=== PATIENT | female | born 1940 | race Caucasian/White ===

== ENCOUNTER 2016-08-10 22:05 | Emergency (ER) | payer OTHER ==
[2016-08-10 22:23] VITALS: BP 189/86; BMI 36.6
--- NOTE | 2016-08-10 23:13 | DR.GENAD ---
HPI - PCP Primary Care Physician: BRET CASAS - HPI Comment HPI Comment: HISTORY BELOW. - Complaint/Symptoms Chief Complaint Doctors Comments: FELL, PAIN RIGHT HIP AND PELVIC. PAIN LOWER BACK ALSO. PROBLEM BEARING WEIGHT.PAIN GETING WORSE. HAPPEN TODAY. Chief Complaint:: S/P FALL PAIN IN RIGHT HIP - Nurses notes reviewed Nurses Notes Review: Yes - Source History Provided: Patient, Family Member - Mode of Arrival Mode of Arrival: Wheelchair - Timing Onset of Chief Complaint: 08/10/16 Came on: Suddenly - Duration Duration: Constant Duration: Hours - Severity Severity: Moderate PMH - PMH Past Medical History: Yes Past Medical History: Arthritis, Diabetes, Dyslipidemia, Hypertension Past Surgical History: Yes Surgical History: Appendectomy, Cholecystectomy, Hysterectomy - Family History History of Family Medical Conditions: Yes Family Medical History: Diabetes Mellitus, Cancer, [place], Hypertension - Social History Does patient currently use any type of tobacco product: No Have you used tobacco products in the last 12 months: No Type of Tobacco Use: None Does any household member use tobacco: No Alcohol Use: None Do you use any recreational Drugs:: No Lives With: Family Lives Where: Home - infectious screening In the last 2 months have you had wt loss of >10#?: NO Have you had fever, night sweats or hemotysis?: No Have you traveled outside the country in the last 6 months?: No Isolation: Standard ROS - Review of Systems Constitutional: Weakness, Fatigue. negative: Chills, Fever Eyes: No Symptoms Reported. negative: Eye Pain, Discharge ENTM: No Symptoms Reported. negative: Ear Pain, Nose Discharge, Nose Congestion , Throat Pain Respiratoy: Non-Productive Cough. negative: Short of Breath, Wheezing Cardiovascular: Edema. negative: Chest Pain, Palpitations, Syncope Gastrointestinal/Abdominal: No Symptoms Reported. negative: Abdominal Pain, Diarrhea, Nausea, Vomiting Genitourinary: Pain. negative: Dysuria, Hematuria, Bleeding Neurological: Weakness, Problems Walking. negative: Headache, Dizziness Musculoskeletal: Back Pain, Muscle Pain, Back, Pelvis, Hip Integumentary: Change in Color, Bruises Hematologic/Lymphatic: Easy Bleeding, Easy Bruising Endocrine: No Symptoms Reported All Other Systems: Reviewed and Negative PE - Vital Signs Vitals: Temperature 98.2 F Pulse Rate 76 Respiratory Rate 18 Blood Pressure [Left Arm] 160/74 Blood Pressure 189/86 O2 Sat by Pulse Oximetry 95 - General Limitations: No Limitations General Appearance: Alert - Head Head Exam: Normal Inspection - Eyes Eye exam: Normal Appearance - ENT ENT Exam: Normal External Ear Exam TM/Canal Exam: Bilateral Normal Nose Exam: Normal Nose Exam Mouth Exam: Normal Inspection Throat Exam: Normal Inspection - Neck Neck Exam: Trachea Midline. negative: Tenderness, Meningismus, Lymphadenopathy - Chest Chest Inspection: Symmetric Chest Wall Rise - Respiratory Respiratory Exam: negative: Chest Wall Tenderness, Respiratory Distress Respiratory Exam: Bilateral Rhonchi, Lower Rhonchi - Cardiovascular Cardiovascular Exam: Regular Rate, Normal Rhythm, Normal Heart Sounds - Abdominal Exam Abdominal Exam: Normal Bowel Sounds, Soft, Tenderness - Extremities Extremities Exam: Tenderness (RIGHT HIP), Edema - Back Back Exam: Tenderness (LOWER BACK), Vertebral Tenderness (LOWER BACK) - Neurologic Neurological Exam: Alert, Oriented X3 - Psychiatric Psychiatric Exam: Normal Affect, Normal Mood - Skin Skin Exam: Erythema MDM - Additional Information Additional Information Obtained From: Family - Differential Diagnosis Differential Diagnosis: FRACTURE, CONTUSION, SPRAIN AND STRAIN LOWER BACK, RIGHT HIP AND PELVIS. Course - Treatment Treatment: SEE ORDERS. - Education/Counseling Education/Counseling: Patient, Family, Education Educated On: Diagnosis, Needs for Follow Up ROR - XRAY XRAY Interpreted by: Radiologist XRAY Findings: REPORT DISCUSS WITH PATIENT. - Diagnosis Discharge Problem: Pain in pelvis Lumbosacral strain Qualifiers: Encounter type: initial encounter Qualified Code(s): S39.012A - Strain of muscle, fascia and tendon of lower back, initial encounter Sprain of right hip Qualifiers: Encounter type: initial encounter Qualified Code(s): S73.101A - Unspecified sprain of right hip, initial encounter Contusion of right hip Qualifiers: Encounter type: initial encounter Qualified Code(s): S70.01XA - Contusion of right hip, initial encounter Contusion of lower back Qualifiers: Encounter type: initial encounter Qualified Code(s): S30.0XXA - Contusion of lower back and pelvis, initial encounter - Discharge Plan Disposition: HOME, SELF-CARE Condition: Stable - Follow ups/Referrals Follow ups/Referrals: Bret Casas [Primary Care Provider] - 3 days - Instructions Instructions: Lumbosacral Strain, Hip Pain Additional Instructions: RETURN TO ED IF WORSE. CONTINUE WITH MEDS AT HOME FOR PAIN.
--- NOTE | 2016-08-11 00:10 | RAD ---
Right hip two views Indication: Pain after fall. Findings: SI joint DJD seen. Hip joint DJD seen. There is no cortical lucency or malalignment. Impression: No acute hip fracture. Reported By:
--- NOTE | 2016-08-11 03:15 | CT ---
CT lumbar spine without contrast Indication: Pain after fall. Technique: Helical images through the lumbar spine without contrast. Coronal and sagittal reformats provided. Findings: There is mild multilevel disk degenerative change and facet arthropathy, without cortical lucency or malalignment. Facet arthropathy and disc bulges are worse caudally generally. Within limi ts of CT, mild to moderate spinal canal narrowing is noted at L3-L4. L2 through L5 also show mild na rrowing of the spinal canal. Mild bilateral neural foramen narrowing noted at L3-L4, L4-L5, L5-S1. Limited images through the abdomen and pelvis show no acute abnormality. Vascular plaque noted. Impression: 1. No acute fracture. 2. Degenerative changes as above. Reported By:
== END 2016-08-11 03:54 | disposition home or self-care (01) ==
LOC: ER 22:29
DX: S39.012A Strain of muscle, fascia and tendon of lower back, initial encounter (principal); S73.101A Unspecified sprain of right hip, initial encounter; S70.01XA Contusion of right hip, initial encounter; S30.0XXA Contusion of lower back and pelvis, initial encounter; R10.2 Pelvic and perineal pain; W19.XXXA Unspecified fall, initial encounter; Y92.9 Unspecified place or not applicable
CPT/HCPCS: 72131; 73501; 99282; 99283

== ENCOUNTER → 2017-02-21 | Outpatient (CLI) | payer OTHER ==
--- NOTE | 2017-02-26 14:30 | MG ---
HISTORY: SCREENING Comparison: 02/21/2016 FINDINGS: Bilateral CC and MLO projections of the right and left breast were obtained. Scattered fibroglandula r tissue is seen to be present. No significant architectural distortion, mass or clustered microcalc ifications can be observed to suggest malignancy. No skin thickening or nipple retraction is appreci ated. No pathological lymphadenopathy can be identified. Benign-appearing calcifications scattered throughout the right and left breasts are observed. IMPRESSION: NO RADIOGRAPHIC EVIDENCE OF MALIGNANCY. ACR CATEGORY 2 - benign findings. FOLLOW-UP EXAM 1 YEAR. Diagnostic CAD was utilized and reviewed. * 0 (ZERO) - ASSESSMENT INCOMPLETE; ADDITIONAL IMAGING IS NEEDED. * 1/ (ONE) - NEGATIVE. * 2/II (TWO) - BENIGN FINDINGS. * 3/III (THREE) - PROBABLY BENIGN FINDING; SHORT INTERVAL FOLLOW-UP SUGGESTED. * 4/IV (FOUR) - SUSPICIOUS ABNORMALITY; BIOPSY SHOULD BE CONSIDERED. * 5/V - HIGHLY SUSPICIOUS OF MALIGNANCY; BIOPSY SHOULD BE PERFORMED. A NEGATIVE X-RAY REPORT SHOULD NOT DELAY BIOPSY IF A DOMINANT OR CLINICALLY SUSPICIOUS MASS IS PRESENT; 4 TO 8 PERCENT OF CANCERS ARE NOT IDENTIFIED BY X-RAY. A NEGA TIVE REPORT MAY REINFORCE THE CLINICAL IMPRESSION. ADENOSIS AND DENSE BREASTS MAY OBSCURE AN UNDERLY ING NEOPLASM. Reported By:
== END ==
LOC: RAD 10:55
PROVIDERS: ATTEND Obstetrics & Gynecology
DX: Z12.31 Encounter for screening mammogram for malignant neoplasm of breast (principal)
CPT/HCPCS: 77067

== ENCOUNTER 2020-12-15 02:52 | Observation (INO) ==
[2020-12-15 03:05] VITALS: BMI 34.7
--- NOTE | 2020-12-15 03:22 | DR.CP ---
HPI Time Seen Time Seen by Provider: 12/15/20 04:21 PCP Primary Care Physician: Jerson HPI Comment HPI Comment: PATIENT IS 80YR OLD FEMALE IN R WITH CHEST PAIN SINCE 01:30 AM. SIMILAR PAIN SUNDAY AND WAS EVALUATED IN ER ON SUNDAY. Complaint Chief Complaint Doctor Comments: CHEST PAIN SINCE 01:30AM. Chief Complaint:: chest pain that started about 1:30 tonight. Pt was here Sunday with same complaint COVID-19 Coronavirus risk:travel/contact w/high risk person: No Has patient experienced Coronavirus symptoms: No Reviewed Nurses Notes Review: Yes Source History Provided: Patient and Family Member Mode of Arrival Mode of Arrival: Ambulatory Timing Onset of Chief Complaint: 12/15/20 Came on: Suddenly Pain: Present Now Duration Duration: Constant PMH PMH Past Medical History: Yes Past Medical History: Coronary Artery Disease, Dementia, Diabetes and Hypertension Past Surgical History: Yes Surgical History: Appendectomy, Cholecystectomy and Hysterectomy Past Surgical History Comment: Stents x 3 Family History History of Family Medical Conditions: Yes Family Medical History: Diabetes Mellitus, Cancer, [place], Coronary Artery Disease and Hypertension Social History Alcohol Use: None Do you use any recreational Drugs:: No Infectious screening Have you traveled outside the country in the last 6 months?: No Isolation: Standard PE Vitals Vitals: Temperature 97.6 F Pulse Rate [Apical] 80 Pulse Rate 83 Respiratory Rate 22 Blood Pressure [Left Arm] 159/73 Blood Pressure 149/66 O2 Sat by Pulse Oximetry 98 ROR Labs Reviewed Result Diagrams: 12/15/20 03:57 12/15/20 03:57 Laboratory: WBC 8.9 X10^3/uL (3.6-10.0) 12/15/20 03:57 RBC 3.36 X10^6/uL (3.5-5.4) L 12/15/20 03:57 Hgb 10.3 g/dL (12.0-16.0) L 12/15/20 03:57 Hct 29.7 % (36.0-47.0) L 12/15/20 03:57 MCV 88.5 fL (80.0-100.0) 12/15/20 03:57 MCH 30.7 pg (27.0-34.0) 12/15/20 03:57 MCHC 34.7 g/dL (33.0-35.0) 12/15/20 03:57 RDW 14.2 % (11.6-16.5) 12/15/20 03:57 Plt Count 186 X10^3/uL (150.0-450.0) 12/15/20 03:57 MPV 8.7 fL (7.4-11.0) 12/15/20 03:57 Neut % (Auto) 84.7 % (42.0-75.0) H 12/15/20 03:57 Lymph % (Auto) 7.9 % (21.0-51.0) L 12/15/20 03:57 Payne % (Auto) 6.3 % (0.0-13.0) 12/15/20 03:57 Eos % (Auto) 0.6 % (0.9-2.9) L 12/15/20 03:57 Baso % (Auto) 0.5 % (0.2-1.0) 12/15/20 03:57 Neut # (Auto) 7.5 x10^3/uL (2.2-4.8) H 12/15/20 03:57 Lymph # (Auto) 0.7 X10^3/uL (1.3-2.9) L 12/15/20 03:57 Payne # (Auto) 0.6 x10^3/uL (0.3-0.8) 12/15/20 03:57 Eos # (Auto) 0.1 x10^3/uL (0.0-0.2) 12/15/20 03:57 Baso # (Auto) 0.0 X10^3/uL (0.0-0.1) 12/15/20 03:57 Absolute Nucleated RBC 0.0 /100WBC 12/15/20 03:57 Sodium 132 mmol/L (136-145) L 12/15/20 03:57 Corrected Sodium 133 mmol/L (136-145) L 12/15/20 03:57 Potassium 4.1 mmol/L (3.5-5.1) 12/15/20 03:57 Chloride 96 mmol/L (98-107) L 12/15/20 03:57 Carbon Dioxide 25.1 mmol/L (21-32) 12/15/20 03:57 BUN 20 mg/dL (7-18) H 12/15/20 03:57 Creatinine 1.36 mg/dL (0.55-1.02) H 12/15/20 03:57 Est GFR (MDRD) Af Amer 48 (>60) L 12/15/20 03:57 Est GFR (MDRD) Non-Af 40 (>60) L 12/15/20 03:57 Glucose 133 mg/dL (65-99) H 12/15/20 03:57 Calcium 8.3 mg/dL (8.5-10.1) L 12/15/20 03:57 Corrected Calcium TNP 12/15/20 03:57 Total Bilirubin 0.30 mg/dL (0.2-1.0) 12/15/20 03:57 AST 18 Units/L (15-37) 12/15/20 03:57 ALT 25 Units/L (12-78) 12/15/20 03:57 Alkaline Phosphatase 106 Units/L (46-116) 12/15/20 03:57 Creatine Kinase 95 Units/L (26-192) 12/15/20 03:57 CK-MB (CK-2) 1.5 ng/mL (0-4.0) 12/15/20 03:57 CK/CKMB % Calc 1.6 % (<4) 12/15/20 03:57 Troponin I < 0.02 ng/mL (0-1.5) 12/15/20 03:57 Total Protein 6.5 g/dL (6.4-8.2) 12/15/20 03:57 Albumin 3.5 g/dL (3.4-5.0) 12/15/20 03:57 Globulin 3.0 g/dL (2.5-4.5) 12/15/20 03:57 Albumin/Globulin Ratio 1.2 Ratio (1.1-2.1) 12/15/20 03:57 Specimen Type Clean catch urine 12/15/20 05:01 Urine Color Straw (YELLOW) 12/15/20 05:01 Urine Appearance Clear (CLEAR) 12/15/20 05:01 Urine pH 6.5 (5.0 - 8.0) 12/15/20 05:01 Ur Specific [place] 1.010 (1.000-1.030) 12/15/20 05:01 Urine Protein Negative (NEGATIVE) 12/15/20 05:01 Urine Glucose (UA) Negative (NEGATIVE) 12/15/20 05:01 Urine Ketones Negative (NEGATIVE) 12/15/20 05:01 Urine Occult Blood Negative (NEGATIVE) 12/15/20 05:01 Urine Nitrite Negative (NEGATIVE) 12/15/20 05:01 Urine Bilirubin Negative (NEGATIVE) 12/15/20 05:01 Urine Urobilinogen Normal (NORMAL) 12/15/20 05:01 Ur Leukocyte Esterase 1+ (NEGATIVE) 12/15/20 05:01 Urine RBC None seen /HPF (0-3) 12/15/20 05:01 Urine WBC None seen /HPF (0-5) 12/15/20 05:01 Ur Squamous Epith Cells Negative /HPF (NEGATIVE) 12/15/20 05:01 Urine Bacteria Negative /HPF (NEGATIVE) 12/15/20 05:01 Ur Culture Indicated? No/not indicated 12/15/20 05:01 Opioid Opioid Risk Tool Age (Good box if 16-45): No History of Preadolescent Sexual Abuse: No Total: 0 Total Score Risk Category: Low Risk Copyright: Bakari DUNLAP predicting aberrant behaviors
[2020-12-15] MEDS ORDERED: ASPIRIN 81 MG CHEWTAB PO ONE (03:43)
[2020-12-15] MEDS ORDERED: ASPIRIN 81 MG CHEWTAB ONE (03:45)
[2020-12-15 04:17] LABS: BASOPHILS % (AUTO) 0.5 % (0.2-1.0); EOSINOPHILS # (AUTO) 0.1 x10^3/uL (0.0-0.2); EOSINOPHILS % (AUTO) 0.6 % (0.9-2.9); HEMATOCRIT 29.7 % (36.0-47.0); HEMOGLOBIN 10.3 g/dL (12.0-16.0); LYMPHOCYTES # (AUTO) 0.7 X10^3/uL (1.3-2.9); LYMPHOCYTES % (AUTO) 7.9 % (21.0-51.0); MEAN CORPUSCULAR HEMOGLOBIN 30.7 pg (27.0-34.0); MEAN CORPUSCULAR HGB CONC 34.7 g/dL (33.0-35.0); MEAN CORPUSCULAR VOLUME 88.5 fL (80.0-100.0); MEAN PLATELET VOLUME 8.7 fL (7.4-11.0); MONOCYTES # (AUTO) 0.6 x10^3/uL (0.3-0.8); MONOCYTES % (AUTO) 6.3 % (0.0-13.0); NEUTROPHILS # (AUTO) 7.5 x10^3/uL (2.2-4.8); NEUTROPHILS % (AUTO) 84.7 % (42.0-75.0); PLATELET COUNT 186 X10^3/uL (150.0-450.0); RED BLOOD COUNT 3.36 X10^6/uL (3.5-5.4); RED CELL DISTRIBUTION WIDTH 14.2 % (11.6-16.5); WHITE BLOOD COUNT 8.9 X10^3/uL (3.6-10.0)
[2020-12-15 04:30] LABS: ALANINE AMINOTRANSFERASE 25 Units/L (12-78); ALBUMIN 3.5 g/dL (3.4-5.0); ALKALINE PHOSPHATASE 106 Units/L (46-116); ASPARTATE AMINO TRANSFERASE 18 Units/L (15-37); BLOOD UREA NITROGEN 20 mg/dL (7-18); CALCIUM 8.3 mg/dL (8.5-10.1); CARBON DIOXIDE 25.1 mmol/L (21-32); CHLORIDE 96 mmol/L (98-107); CKMB % 1.6 % (<4); COR NA(FOR HYPERGLY) 133 mmol/L (136-145); CREATINE KINASE 95 Units/L (26-192); CREATINE KINASE MB 1.5 ng/mL (0-4.0); CREATININE 1.36 mg/dL (0.55-1.02); SODIUM 132 mmol/L (136-145); TOTAL PROTEIN 6.5 g/dL (6.4-8.2); TROPONIN I < 0.02 ng/mL (0-1.5); eGFR NON BLACK RACES 40 (>60)
[2020-12-15 05:36] LABS: BILIRUBIN,URINE NEGATIVE (NEGATIVE); BLOOD/HEMOGLOBIN,URINE NEGATIVE (NEGATIVE); GLUCOSE, URINE NEGATIVE (NEGATIVE); KETONES,URINE NEGATIVE (NEGATIVE); LEUKOCYTE ESTERASE ,URINE 1+ (NEGATIVE); NITRITES,URINE NEGATIVE (NEGATIVE); PH,URINE 6.5 (5.0 - 8.0); PROTEIN,URINE NEGATIVE (NEGATIVE); UROBILINOGEN,URINE NORMAL (NORMAL)
--- NOTE | 2020-12-15 05:52 | RAD ---
PROCEDURE: Chest X-ray 1 View .HISTORY: Chest pain.TECHNIQUE: AP view .COMPARISON: 12/10/2020.TECHNICAL QUALITY: Satisfactory .FINDINGS:Normal size heart .Mediastinum and hilar regions show no masses or lymphadenopathy .Normal central vascularity .No pulmonary consolidation, masses, pleural fluid, or pneumothorax .No acute bony abnormality .IMPRESSION:No active cardiopulmonary disease .Electronically signed by: Kermit Stanley (Dec 15, 2020 05:49:02)
[2020-12-15 06:15] LABS: APPEARANCE,URINE CLEAR (CLEAR); BACTERIA,URINE NEGATIVE /HPF (NEGATIVE); COLOR,URINE STRAW (YELLOW); RBC,URINE NONE SEEN /HPF (0-3); SQUAMOUS EPITHELIAL CELL,UR NEGATIVE /HPF (NEGATIVE)
[2020-12-15] MEDS ORDERED: NS 1000 ML 1,000 ML ONE (10:59)
[2020-12-15] MEDS: NS 1000 ML 1,000 ML IV SCH ×2 (11:20→21:33)
[2020-12-15 11:59] LABS: CKMB % 1.9 % (<4); CREATINE KINASE 83 Units/L (26-192); CREATINE KINASE MB 1.6 ng/mL (0-4.0); TROPONIN I < 0.02 ng/mL (0-1.5)
--- NOTE | 2020-12-15 12:11 | DR.H&P ---
H&P - History & Physical for Day of: H&P Date: 12/15/20 - Chief Complaint Chief Complaint: CHEST PAIN - History of Present Illness History of Present Illness: IS A 80 YEAR OLD PATIENT OF OURS WHO PRESENTED TO THE ER FOR COMPLAINTS OF CHEST PAIN. PAIN HAS APPARENTLY BEEN INTERMITTENT SINCE SUNDAY, 12/10. SHE DID PRESENT TO THE ER ON 12/10 AND HAD NORMAL CARDIAC ENZYMES AND EKGS AT THAT TIME. SHE WAS DISCHARGED HOME FROM THE ER. PAIN BECAME WORSE AROUND 1:30 AM THIS MORNING. PAIN IS MID STERNAL. PATIENT RATES PAIN A 5/10 AT THE PRESENT TIME. HER PMH INCLUES: CAD, DEMENTIA, DM II, HTN, GERD, PAST UTERINE CANCER, APPENDECTOMY, CHOLECYSTECTOMY, HYSTERECTOMY, AND CARDIAC STENTS X 3. ON ARRIVAL TO THE ER TODAY, VITALS WERE 97.6-83-18-98%-149/66. LABS WERE OBTAINED. ABNORMAL LAB VALUES INCLUDE THE FOLLOWING: RBC 3.36, HGB 10.3, HCT 29.7, SODIUM 132, CHLORIDE 96, BUN 20, CREATININE 1.36, GLUCOSE 133, CALCIUM 8.3. CARDIAC ENZYMES WERE WITHIN NORMAL LIMITS. URINALYSIS WAS OBTAINED AND IS UNREMARKABLE. COVID, RSV, AND INFLUENZA NEGATIVE. AN EKG WAS OBTAINED AND REVEALED: SINUS RHYTHM WITH HR 83. CHEST XRAY REVEALED: NO ACTIVE CARDIOPULMONARY DISEASE. SHE HAD AN ECHO IN AUGUST WHICH REVEALED AN EJECTION FRACTION OF 71%, TRACE REGURGITATION, RVSP 20mmHg. IN THE ER, SHE WAS GIVEN ASPIRIN 324MG. SHE WAS ADMITTED TO THE HOSPITAL FOR FURTHER EVALUATION AND TREATMENT OF CHEST PAIN, RULE OUT ACUTE DE. WE PLAN TO OBTAIN SERIAL CARDIAC ENZYMES AND EKGS. WE WILL CONSULT WITH , CYCLE COUNTER. OTHERWISE, WE PLAN TO FOLLOW UP WITH AM LABS AND CONTINUE TO MONITOR. TIME SPENT ON CLINICAL ASSESSMENT, REVIEWING LABS AND IMAGING, DECISION MAKING, AND DOCUMENTATION GREATER THAN 75 MINUTES. - Past Medical History Past Medical History: Coronary Artery Disease, Dementia, Diabetes, GERD, Hyper tension - Past Surgical History Surgical History: Angioplasty/Stents, Appendectomy, Cholecystectomy, Hysterectomy - Family History Family Medical History: Diabetes Mellitus, Cancer, [place], Coronary Artery Disease, Hypertension - Social History Does any household member use tobacco: No Alcohol Use: None Drug Use: None - Medications Home Medications: Penicillins Allergy (Verified 12/15/20 03:06) Sulfa (Sulfonamide Antibiotics) [SULFA] Allergy (Verified 12/15/20 03:06) CONTINUE taking the following medications amlodipine 5 mg PO DAILY 12/15/20 [History] atorvastatin 80 mg PO DAILY 12/15/20 [History] furosemide 40 mg PO BID 12/15/20 [History] gabapentin 300 mg PO TID 12/15/20 [History] hydralazine 50 mg PO BID 12/15/20 [History] insulin glargine U-300 conc [Toujeo SoloStar U-300 Insulin] 44 unit SUBCUT DAILY 12/15/20 [History] insulin regular human [Novolin R Regular U-100 Insuln] 1 sliding scale dose SUBCUT ACHS 12/15/20 [History] iron-folic acid-mv, min cmb#15 [Centratex] 1 cap PO DAILY 12/15/20 [History] levothyroxine 50 mcg PO DAILY 12/15/20 [History] metformin 500 mg PO BID 12/15/20 [History] pantoprazole 40 mg PO DAILY 12/15/20 [History] potassium chloride 10 meq PO DAILY 12/15/20 [History] ropinirole 3 mg PO HS 12/15/20 [History] semaglutide [Rybelsus] 7 mg PO DAILY 12/15/20 [History] spironolactone 25 mg PO DAILY 12/15/20 [History] ticagrelor [Brilinta] 90 mg PO BID 12/15/20 [History] - Review of Systems Constitutional: Weakness Eyes: No Symptoms Reported ENT: No Symptoms Reported Respiratory: No Symptoms Reported Cardiovascular: Chest Pain, See HPI Gastrointestinal: No Symptoms Reported Genitourinary: No Symptoms Reported Musculoskeletal: No Symptoms Reported Skin: No Symptoms Reported Neurological: Weakness - Physical Exam Vital Signs: Temperature 98.2 F Pulse Rate [Apical] 95 Pulse Rate 83 Respiratory Rate 20 Blood Pressure [Left Arm] 160/74 Blood Pressure 149/66 O2 Sat by Pulse Oximetry 98 Oriented: Person, Place Eyes: Normal Ear: Normal Nose: Normal Throat: Normal Respiratory: Diminished Throughout Cardiovascular: Normal : Normal Auscultation: Bowel Sounds: Normal Palpation: Normal Tenderness: Normal Skin: Normal Musculoskeletal: Normal Psychiatric: Normal Mood Description: Calm Affect: Normal Speech Pattern: Clear - Assessment/Plan (1) Chest pain, rule out acute myocardial infarction Status: Acute Plan: ADMIT, SERIAL CARDIAC ENZYMES AND EKG, CARDIOLOGY CONSULT - Allergies Allergies/Adverse Reactions: Allergies Allergy/AdvReac Type Severity Reaction Status Date / Time Penicillins Allergy Verified 12/15/20 03:06 Sulfa (Sulfonamide Allergy Verified 12/15/20 03:06 Antibiotics) [SULFA]
[2020-12-15 18:37] LABS: CKMB % 1.7 % (<4); CREATINE KINASE MB 1.3 ng/mL (0-4.0); TROPONIN I 0.02 ng/mL (0-1.5)
[2020-12-15] MEDS ORDERED: REQUIP PO SCH (22:00)
[2020-12-15] MEDS: PROTONIX INJ 40 MG VIAL IVP SCH (22:05)
[2020-12-15] MEDS: NEURONTIN CAP 300 MG PO SCH (22:05)
[2020-12-16] MEDS: PEPCID 20 MG IV PREMIX* 20 MG/50 ML BAG IV SCH ×2 (01:24→09:39)
[2020-12-16] MEDS: NEURONTIN CAP 300 MG PO SCH (05:37)
[2020-12-16 06:12] LABS: BASOPHILS # (AUTO) 0.1 X10^3/uL (0.0-0.1); BASOPHILS % (AUTO) 0.9 % (0.2-1.0); EOSINOPHILS # (AUTO) 0.2 x10^3/uL (0.0-0.2); EOSINOPHILS % (AUTO) 2.6 % (0.9-2.9); HEMATOCRIT 29.5 % (36.0-47.0); HEMOGLOBIN 10.1 g/dL (12.0-16.0); LYMPHOCYTES # (AUTO) 1.2 X10^3/uL (1.3-2.9); LYMPHOCYTES % (AUTO) 16.9 % (21.0-51.0); MEAN CORPUSCULAR HEMOGLOBIN 30.8 pg (27.0-34.0); MEAN CORPUSCULAR HGB CONC 34.1 g/dL (33.0-35.0); MEAN CORPUSCULAR VOLUME 90.2 fL (80.0-100.0); MEAN PLATELET VOLUME 8.6 fL (7.4-11.0); MONOCYTES # (AUTO) 0.5 x10^3/uL (0.3-0.8); MONOCYTES % (AUTO) 7.6 % (0.0-13.0); PLATELET COUNT 187 X10^3/uL (150.0-450.0); RED BLOOD COUNT 3.27 X10^6/uL (3.5-5.4); RED CELL DISTRIBUTION WIDTH 14.4 % (11.6-16.5); WHITE BLOOD COUNT 6.9 X10^3/uL (3.6-10.0)
[2020-12-16 06:28] LABS: ALANINE AMINOTRANSFERASE 20 Units/L (12-78); ALKALINE PHOSPHATASE 94 Units/L (46-116); ASPARTATE AMINO TRANSFERASE 14 Units/L (15-37); BLOOD UREA NITROGEN 14 mg/dL (7-18); CALCIUM 8.4 mg/dL (8.5-10.1); CHLORIDE 103 mmol/L (98-107); COR CA(FOR HYPOALB) 9.2 mg/dL (8.5-10.1); COR NA(FOR HYPERGLY) 138 mmol/L (136-145); CREATININE 1.08 mg/dL (0.55-1.02); MAGNESIUM 1.8 mg/dL (1.7-2.9); SODIUM 136 mmol/L (136-145); TOTAL PROTEIN 5.9 g/dL (6.4-8.2); eGFR NON BLACK RACES 52 (>60)
[2020-12-16] MEDS ORDERED: HumuLIN R SC SCH (06:30)
[2020-12-16] MEDS ORDERED: GLUCOPHAGE ONE (08:13)
[2020-12-16] MEDS ORDERED: SYNTHROID 50 mcg TAB PO SCH (09:00)
[2020-12-16] MEDS ORDERED: [UNRECOGNIZED DRUG - OTHER] PO SCH (09:00)
[2020-12-16] MEDS ORDERED: TOUJEO SOLOSTAR PEN SC SCH (09:00)
[2020-12-16] MEDS ORDERED: APRESOLINE TAB 25 MG PO SCH (09:00)
[2020-12-16] MEDS ORDERED: BRILINTA PO SCH (09:00)
[2020-12-16] MEDS ORDERED: LIPITOR TAB 80 MG PO SCH (09:00)
[2020-12-16] MEDS ORDERED: NORVASC TAB 5 MG PO SCH (09:00)
[2020-12-16] MEDS ORDERED: MICRO K EXTEN CAP 10 MEQ PO SCH (09:00)
[2020-12-16] MEDS ORDERED: IRON PO SCH (09:00)
[2020-12-16] MEDS ORDERED: LASIX PO SCH (09:00)
[2020-12-16] MEDS ORDERED: TAB-A-VITE PO SCH (09:00)
[2020-12-16] MEDS ORDERED: ALDACTONE TAB 25 MG PO SCH (09:00)
[2020-12-16] MEDS ORDERED: GLUCOPHAGE PO SCH (09:00)
[2020-12-16] MEDS ORDERED: IRON FOLIC ACID MV MIN CMB PO SCH (09:00)
[2020-12-16] MEDS: PROTONIX INJ 40 MG VIAL IVP SCH (09:43)
[2020-12-16] MEDS: NS 1000 ML 1,000 ML IV SCH (09:48)
[2020-12-16 10:07] VITALS: BP 167/72
[2020-12-16] MEDS ORDERED: SNACK - Diabetic Appropriate PO SCH ×2 (20:00)
== END 2020-12-16 11:00 | disposition home or self-care (01) ==
LOC: ER 02:57 → U 02:57 → MED/SURG 14:54
PROVIDERS: ADMIT Family Medicine; ATTEND Internal Medicine
DX: E11.65 Type 2 diabetes mellitus with hyperglycemia; I25.10 Atherosclerotic heart disease of native coronary artery without angina pectoris; R07.89 Other chest pain; I10 Essential (primary) hypertension; Z20.822 Contact with and (suspected) exposure to COVID-19

== ENCOUNTER 2021-03-03 09:26 | Observation (INO) ==
--- NOTE | 2021-03-03 09:30 | DR.NAUSEAF ---
HPI Time Seen Time Seen by Provider: 03/03/21 09:29 HPI Comment HPI Comment: PATIENT IS 80YR OLD Complaints Chief Complaint Doctors Comments: ABDOMINAL PAIN, NAUSEA,VOMITING AND DIARRHEA SINCE 04:00AM. COVID-19 Coronavirus risk:travel/contact w/high risk person: No Has patient experienced Coronavirus symptoms: No Reviewed Nurses Notes Reviewed: Yes Source History Provided: Patient Mode of Arrival Mode of Arrival: EMS Context Onset: Spontaneous Recent: None Quality Quality: Food Particles Associated Signs and Symptoms Abdominal Pain Quality: Cramping Abdominal Pain Location: Diffuse Symptoms: Abdominal Pain PMH PMH Past Medical History: Coronary Artery Disease, Dementia, Diabetes, Dyslipidemia, GERD, Hypertension and Sleep Apnea Past Surgical History: Yes Surgical History: Angioplasty/Stents, Appendectomy, Cholecystectomy and Hysterectomy Family History Family Medical History: Diabetes Mellitus, Cancer, [place], Coronary Artery Disease and Hypertension Social History Do you use any recreational Drugs:: No ROS Review of Systems Constitutional: See HPI, Weakness and Fatigue; negative Fever Eyes: No Symptoms Reported and See HPI ENTM: No Symptoms Reported and See HPI; negative Nose Discharge and Nose Conge stion Respiratoy: No Symptoms Reported and See HPI; negative Moist Cough, Short of Breath and Wheezing Cardiovascular: No Symptoms Reported and See HPI; negative Chest Pain Gastrointestinal/Abdominal: See HPI, Abdominal Pain, Diarrhea and Vomiting Genitourinary: No Symptoms Reported and See HPI; negative Dysuria Neurological: See HPI and Weakness; negative Headache and Dizziness Musculoskeletal: No Symptoms Reported and See HPI; negative Back Pain and Muscle Pain Integumentary: No Symptoms Reported and See HPI; negative Change in Color, Rash and Juandice Hematologic/Lymphatic: No Symptoms Reported and See HPI; negative Easy Bruising Endocrine: No Symptoms Reported and See HPI; negative Increased Thirst and Increased Urine Psychiatric: No Symptoms Reported and See HPI All Other Systems: Reviewed and Negative PE Vital Signs Vitals: Temperature 97.8 F Pulse Rate 86 Respiratory Rate 20 Blood Pressure [Left Arm] 167/72 Blood Pressure 191/81 O2 Sat by Pulse Oximetry 97 General Limitations: No Limitations General Appearance: Alert and In No Apparent Distress Head Head Exam: Normal Inspection Eyes Eye exam: Normal Appearance; negative Scleral Icterus and Conjunctival Injection ENT ENT Exam: Normal Exam, Normal Oropharynx, Normal External Ear Exam and TM's Normal Bilaterally Neck Neck Exam: Normal Inspection and Trachea Midline; negative Tenderness Chest Chest Inspection: Normal Inspection and Symmetric Chest Wall Rise; negative Tenderness Respiratory Respiratory Exam: Normal Lung Sounds Bilat; negative Accessory Muscle Use, Chest Wall Tenderness and Respiratory Distress Respiratory Exam: Bilateral: Clear to Auscultation Cardiovascular Cardiovascular Exam: Regular Rate, Normal Rhythm and Normal Heart Sounds; negative Systolic Murmur and Diastolic Murmur Abdominal Exam Abdominal Exam: Normal Bowel Sounds, Soft and Tenderness Abdominal Tenderness: Diffuse and Moderate Rectal Rectal Exam: Deferred External Exam: Female: Deferred : Speculum Exam (Female): Deferred : Bimanual Exam (female): Deferred Extremities Extremities Exam: Normal Inspection and Normal Capillary Refill Back Back Exam: Normal Inspection; negative (R) CVA Tenderness and (L) CVA Tenderness Neurologic Neurological Exam: Alert and Oriented X3; negative Motor Sensory Deficit Psychiatric Psychiatric Exam: Normal Affect and Normal Mood Skin Skin Exam: Warm, Dry, Intact and Normal Color MDM Differential Diagnosis Differential Diagnosis: Considerations may Include:: Bowel Obstruction, Gastritis, Gastroenteritis, Inflammatory BD, Pancreatitis, PUD, Urinary Tract Infection and Urolithiasis COURSE Treatment Treatment: SEE ORDERS. ROR Labs Reviewed Result Diagrams: 03/03/21 10:45 03/03/21 10:45 Laboratory: WBC 7.1 X10^3/uL (3.6-10.0) 03/03/21 10:45 RBC 3.84 X10^6/uL (3.5-5.4) 03/03/21 10:45 Hgb 11.6 g/dL (12.0-16.0) L 03/03/21 10:45 Hct 33.8 % (36.0-47.0) L 03/03/21 10:45 MCV 88.1 fL (80.0-100.0) 03/03/21 10:45 MCH 30.1 pg (27.0-34.0) 03/03/21 10:45 MCHC 34.2 g/dL (33.0-35.0) 03/03/21 10:45 RDW 14.3 % (11.6-16.5) 03/03/21 10:45 Plt Count 220 X10^3/uL (150.0-450.0) 03/03/21 10:45 Plt Count Comment Adequate (ADEQUATE) 03/03/21 10:45 MPV 7.9 fL (7.4-11.0) 03/03/21 10:45 Neut % (Auto) 91.3 % (42.0-75.0) H 03/03/21 10:45 Lymph % (Auto) 5.4 % (21.0-51.0) L 03/03/21 10:45 [place] % (Auto) 2.5 % (0.0-13.0) 03/03/21 10:45 Eos % (Auto) 0.2 % (0.9-2.9) L 03/03/21 10:45 Baso % (Auto) 0.6 % (0.2-1.0) 03/03/21 10:45 Neut # (Auto) 6.5 x10^3/uL (2.2-4.8) H 03/03/21 10:45 Lymph # (Auto) 0.4 X10^3/uL (1.3-2.9) L 03/03/21 10:45 [place] # (Auto) 0.2 x10^3/uL (0.3-0.8) L 03/03/21 10:45 Eos # (Auto) 0.0 x10^3/uL (0.0-0.2) 03/03/21 10:45 Baso # (Auto) 0.0 X10^3/uL (0.0-0.1) 03/03/21 10:45 Absolute Nucleated RBC 0.0 /100WBC 03/03/21 10:45 Total Counted 100 03/03/21 10:45 Neutrophils % (Manual) 93 % (39-76) H 03/03/21 10:45 Band Neutrophils % 1 % (0-10) 03/03/21 10:45 Lymphocytes % (Manual) 5 % (13-43) L 03/03/21 10:45 Eosinophils % (Manual) 1 % (0-6) 03/03/21 10:45 Plt Morphology Comment Normal (NORMAL) 03/03/21 10:45 RBC Morphology Normal (NORMAL) 03/03/21 10:45 Sodium 134 mmol/L (136-145) L 03/03/21 10:45 Corrected Sodium 138 mmol/L (136-145) 03/03/21 10:45 Potassium 4.1 mmol/L (3.5-5.1) 03/03/21 10:45 Chloride 99 mmol/L (98-107) 03/03/21 10:45 Carbon Dioxide 28.2 mmol/L (21-32) 03/03/21 10:45 BUN 11 mg/dL (7-18) 03/03/21 10:45 Creatinine 0.88 mg/dL (0.55-1.02) 03/03/21 10:45 Est GFR (MDRD) Af Amer > 60 (>60) 03/03/21 10:45 Est GFR (MDRD) Non-Af > 60 (>60) 03/03/21 10:45 Glucose 269 mg/dL (65-99) H 03/03/21 10:45 Calcium 9.0 mg/dL (8.5-10.1) 03/03/21 10:45 Corrected Calcium TNP 03/03/21 10:45 Total Bilirubin 0.40 mg/dL (0.2-1.0) 03/03/21 10:45 AST 18 Units/L (15-37) 03/03/21 10:45 ALT 28 Units/L (12-78) 03/03/21 10:45 Alkaline Phosphatase 127 Units/L (46-116) H 03/03/21 10:45 Creatine Kinase 49 Units/L (26-192) 03/03/21 10:45 CK-MB (CK-2) 1.1 ng/mL (0-4.0) 03/03/21 10:45 CK/CKMB % Calc 2.2 % (<4) 03/03/21 10:45 Troponin I < 0.02 ng/mL (0-1.5) 03/03/21 10:45 Total Protein 6.9 g/dL (6.4-8.2) 03/03/21 10:45 Albumin 3.5 g/dL (3.4-5.0) 03/03/21 10:45 Globulin 3.4 g/dL (2.5-4.5) 03/03/21 10:45 Albumin/Globulin Ratio 1.0 Ratio (1.1-2.1) L 03/03/21 10:45 Amylase 20 Units/L (25-115) L 03/03/21 10:45 Lipase 68 Units/L (73-393) L 03/03/21 10:45 Specimen Type Clean catch urine 03/03/21 12:10 Urine Color Yellow (YELLOW) 03/03/21 12:10 Urine Appearance Clear (CLEAR) 03/03/21 12:10 Urine pH 8.0 (5.0 - 8.0) 03/03/21 12:10 Ur Specific Moody 1.010 (1.000-1.030) 03/03/21 12:10 Urine Protein 2+ (NEGATIVE) 03/03/21 12:10 Urine Glucose (UA) 4+ (NEGATIVE) 03/03/21 12:10 Urine Ketones 2+ (NEGATIVE) 03/03/21 12:10 Urine Occult Blood Negative (NEGATIVE) 03/03/21 12:10 Urine Nitrite Negative (NEGATIVE) 03/03/21 12:10 Urine Bilirubin Negative (NEGATIVE) 03/03/21 12:10 Urine Urobilinogen Normal (NORMAL) 03/03/21 12:10 Ur Leukocyte Esterase Negative (NEGATIVE) 03/03/21 12:10 Urine RBC 0-2 /HPF (0-3) 03/03/21 12:10 Urine WBC 0-2 /HPF (0-5) 03/03/21 12:10 Ur Squamous Epith Cells Rare /HPF (NEGATIVE) 03/03/21 12:10 Ur Transition Epith Cell Rare /HPF (NEGATIVE) 03/03/21 12:10 Urine Bacteria Trace /HPF (NEGATIVE) 03/03/21 12:10 Urine Mucus Rare /HPF (NEGATIVE) 03/03/21 12:10 Ur Culture Indicated? No/not indicated 03/03/21 12:10 Acetone, Semi-Quant Negative (NEGATIVE) 03/03/21 10:45 Influenza Type A Ag Negative-presumptive (NEGATIVE) 03/03/21 10:50 Influenza Type B Ag Negative-presumptive (NEGATIVE) 03/03/21 10:50 SARS CoV-2 RNA Rapid SKYE Negative (NEGATIVE) 03/03/21 10:50 Opioid Opioid Risk Tool Age (Good box if 16-45): No History of Preadolescent Sexual Abuse: No Total: 0 Total Score Risk Category: Low Risk Copyright: Bakari DUNLAP predicting aberrant behaviors Diagnosis Discharge Problem: Abdominal pain, Hypertension, Nausea and vomiting, Diarrhea, Generalized weakness, Meningioma, Bladder outlet obstruction Instructions Forms: Precautions for COVID19 [facility] Social Distancing
[2021-03-03] MEDS ORDERED: ZOFRAN INJ 4 MG VIAL IVP ONE (09:58)
[2021-03-03] MEDS ORDERED: NS 1,000 ML IV 1,000 ML IV ONE (09:58)
[2021-03-03] MEDS ORDERED: ZOFRAN INJ 4 MG VIAL ONE (10:01)
[2021-03-03] MEDS ORDERED: NS 1,000 ML IV 1,000 ML ONE (10:01)
[2021-03-03 10:55] LABS: BASOPHILS % (AUTO) 0.6 % (0.2-1.0); EOSINOPHILS % (AUTO) 0.2 % (0.9-2.9); HEMATOCRIT 33.8 % (36.0-47.0); HEMOGLOBIN 11.6 g/dL (12.0-16.0); LYMPHOCYTES # (AUTO) 0.4 X10^3/uL (1.3-2.9); LYMPHOCYTES % (AUTO) 5.4 % (21.0-51.0); MEAN CORPUSCULAR HEMOGLOBIN 30.1 pg (27.0-34.0); MEAN CORPUSCULAR HGB CONC 34.2 g/dL (33.0-35.0); MEAN CORPUSCULAR VOLUME 88.1 fL (80.0-100.0); MEAN PLATELET VOLUME 7.9 fL (7.4-11.0); MONOCYTES # (AUTO) 0.2 x10^3/uL (0.3-0.8); MONOCYTES % (AUTO) 2.5 % (0.0-13.0); NEUTROPHILS # (AUTO) 6.5 x10^3/uL (2.2-4.8); NEUTROPHILS % (AUTO) 91.3 % (42.0-75.0); PLATELET COUNT 220 X10^3/uL (150.0-450.0); RED BLOOD COUNT 3.84 X10^6/uL (3.5-5.4); RED CELL DISTRIBUTION WIDTH 14.3 % (11.6-16.5); WHITE BLOOD COUNT 7.1 X10^3/uL (3.6-10.0)
[2021-03-03] MEDS ORDERED: DEMEROL INJ IVP ONE ×2 (10:55→12:21)
[2021-03-03] MEDS ORDERED: DEMEROL INJ ONE ×2 (10:59→12:56)
[2021-03-03 11:21] LABS: ALANINE AMINOTRANSFERASE 28 Units/L (12-78); ALBUMIN 3.5 g/dL (3.4-5.0); ALKALINE PHOSPHATASE 127 Units/L (46-116); AMYLASE 20 Units/L (25-115); ASPARTATE AMINO TRANSFERASE 18 Units/L (15-37); BLOOD UREA NITROGEN 11 mg/dL (7-18); CARBON DIOXIDE 28.2 mmol/L (21-32); CHLORIDE 99 mmol/L (98-107); CKMB % 2.2 % (<4); COR NA(FOR HYPERGLY) 138 mmol/L (136-145); CREATINE KINASE 49 Units/L (26-192); CREATINE KINASE MB 1.1 ng/mL (0-4.0); CREATININE 0.88 mg/dL (0.55-1.02); LIPASE 68 Units/L (73-393); SODIUM 134 mmol/L (136-145); TOTAL PROTEIN 6.9 g/dL (6.4-8.2); TROPONIN I < 0.02 ng/mL (0-1.5); eGFR NON BLACK RACES > 60 (>60)
[2021-03-03 11:40] LABS: BAND NEUTROPHILS % 1 % (0-10)
[2021-03-03 11:41] LABS: PLATELET MORPHOLOGY COMMENT NORMAL (NORMAL)
[2021-03-03 12:17] LABS: BILIRUBIN,URINE NEGATIVE (NEGATIVE); BLOOD/HEMOGLOBIN,URINE NEGATIVE (NEGATIVE); GLUCOSE, URINE 4+ (NEGATIVE); KETONES,URINE 2+ (NEGATIVE); LEUKOCYTE ESTERASE ,URINE NEGATIVE (NEGATIVE); NITRITES,URINE NEGATIVE (NEGATIVE); PROTEIN,URINE 2+ (NEGATIVE); UROBILINOGEN,URINE NORMAL (NORMAL)
[2021-03-03 12:23] LABS: APPEARANCE,URINE CLEAR (CLEAR); COLOR,URINE YELLOW (YELLOW)
[2021-03-03 12:31] LABS: BACTERIA,URINE TRACE /HPF (NEGATIVE); MUCUS,URINE RARE /HPF (NEGATIVE); RBC,URINE 0-2 /HPF (0-3); SQUAMOUS EPITHELIAL CELL,UR RARE /HPF (NEGATIVE); TRANSITIONAL EPI CELLS,URINE RARE /HPF (NEGATIVE)
--- NOTE | 2021-03-03 12:33 | CT ---
HISTORYabdominal pain, n/v/dSTUDYABDOMEN/PELVIS W/O CONCOMPARISONNone.TECHNIQUEMultiple axial images of the abdomen and pelvis were obtained from the lung bases to the pubic symphysis without the administration of IV contrast. Dose reduction techniques including Automated Exposure Control (AEC) and adjustment of mA and kV were utilized.FINDINGSLack of contrast limits evaluation.Lung bases demonstrate mild patchy opacities likely subsegmental atelectasis. Trace right pleural effusion. The heart is mildly enlarged. 1.9 cm cyst in the anterior liver image 16 series 3. Status post cholecystectomy. The spleen, pancreas, and adrenal glands have a benign noncontrast appearance. There is mild bilateral hydronephrosis without distal obstructing calculus. The urinary bladder is mildly distended. Status post hysterectomy. The appendix is not well visualized but there is no significant inflammatory change in its expected location. Negative for bowel obstruction. Mildly atherosclerotic normal caliber abdominal aorta. Tiny hiatal hernia. No pathologic adenopathy. No free air, free fluid or collection. Mild leftward curvature of the lumbar spine apex L2-3. T10 hemangioma measuring 1.9 cm image 40 series 5. Severe L4-5 facet arthropathy with degenerative grade 1 anterolisthesis.IMPRESSIONNegative for bowel obstruction. Mild bilateral hydronephrosis. Distended urinary bladder. Correlate for bladder outlet obstruction.Electronically signed by: Chauncey Ortiz (Mar 03, 2021 12:31:21)
[2021-03-03] MEDS ORDERED: PHENERGAN INJ 25 MG IM ONE ×2 (13:51→13:56)
[2021-03-03] MEDS ORDERED: APRESOLINE INJ 20 MG VIAL IVP ONE (14:34)
[2021-03-03] MEDS ORDERED: APRESOLINE INJ 20 MG VIAL ONE (14:36)
--- NOTE | 2021-03-03 15:09 | CT ---
HISTORYHEADACHESTUDYBRAIN W/O CONCOMPARISONNone available.TECHNIQUEAxial non-contrast images of the head with coronal and sagittal reformats.Radiation dose: 1223.30 mGy-cm total DLPFINDINGSNo abnormal areas of acute attenuation in the brain parenchyma.Garcia-white differentiation remains intact.No intracranial, extra-axial, fluid collection.No hemorrhage.No mass effect or midline shift.Rim calcified mass extending from the calvarium towards the superior medial vertex of the mid parietal lobe; consistent with a meningioma.No ventriculomegaly.No acute fracture.Sinuses are well aerated.Mastoid air cells are well aerated.Globes and intraorbital contents are unremarkable.IMPRESSION1. No acute intracranial abnormality identified.2. Meningioma extending from the vertex towards the mid superior medial parietal region.Electronically signed by: Reagan Jones (Mar 03, 2021 15:07:33)
[2021-03-03] MEDS ORDERED: PHENERGAN INJ 25 MG IM PRN (17:20)
[2021-03-03] MEDS ORDERED: PEPCID 20 MG IV PREMIX* 20 MG/50 ML BAG IV PRN (17:20)
[2021-03-03 18:22] LABS: BILIRUBIN,URINE NEGATIVE (NEGATIVE); BLOOD/HEMOGLOBIN,URINE 1+ (NEGATIVE); GLUCOSE, URINE 3+ (NEGATIVE); KETONES,URINE 1+ (NEGATIVE); LEUKOCYTE ESTERASE ,URINE NEGATIVE (NEGATIVE); NITRITES,URINE NEGATIVE (NEGATIVE); PROTEIN,URINE 2+ (NEGATIVE); UROBILINOGEN,URINE NORMAL (NORMAL)
[2021-03-03 18:37] LABS: APPEARANCE,URINE HAZY (CLEAR); COLOR,URINE YELLOW (YELLOW)
[2021-03-03 18:38] LABS: AMORPHOUS SEDIMENT,UR TRACE /HPF (NEGATIVE); BACTERIA,URINE NEGATIVE /HPF (NEGATIVE); SQUAMOUS EPITHELIAL CELL,UR RARE /HPF (NEGATIVE)
[2021-03-03 19:30] LABS: CKMB % 1.5 % (<4); CREATINE KINASE 66 Units/L (26-192); TROPONIN I < 0.02 ng/mL (0-1.5)
[2021-03-03] MEDS: INVANZ INJ 1 GM VIAL 1 GM in NS 100 ML IV + SPIKE MINIBAG* 100 ML IV SCH (20:37)
[2021-03-04 06:49] LABS: BASOPHILS # (AUTO) 0.1 X10^3/uL (0.0-0.1); BASOPHILS % (AUTO) 1.2 % (0.2-1.0); EOSINOPHILS # (AUTO) 0.1 x10^3/uL (0.0-0.2); EOSINOPHILS % (AUTO) 1.7 % (0.9-2.9); HEMATOCRIT 30.1 % (36.0-47.0); HEMOGLOBIN 10.5 g/dL (12.0-16.0); LYMPHOCYTES # (AUTO) 1.6 X10^3/uL (1.3-2.9); LYMPHOCYTES % (AUTO) 21.5 % (21.0-51.0); MEAN CORPUSCULAR HEMOGLOBIN 30.5 pg (27.0-34.0); MEAN CORPUSCULAR HGB CONC 34.9 g/dL (33.0-35.0); MEAN CORPUSCULAR VOLUME 87.5 fL (80.0-100.0); MEAN PLATELET VOLUME 8.6 fL (7.4-11.0); MONOCYTES # (AUTO) 0.5 x10^3/uL (0.3-0.8); MONOCYTES % (AUTO) 7.2 % (0.0-13.0); NEUTROPHILS % (AUTO) 68.4 % (42.0-75.0); PLATELET COUNT 235 X10^3/uL (150.0-450.0); RED BLOOD COUNT 3.44 X10^6/uL (3.5-5.4); RED CELL DISTRIBUTION WIDTH 14.1 % (11.6-16.5); WHITE BLOOD COUNT 7.3 X10^3/uL (3.6-10.0)
[2021-03-04 07:12] LABS: ALANINE AMINOTRANSFERASE 23 Units/L (12-78); ALBUMIN 2.9 g/dL (3.4-5.0); ALKALINE PHOSPHATASE 96 Units/L (46-116); AMYLASE 17 Units/L (25-115); ASPARTATE AMINO TRANSFERASE 17 Units/L (15-37); BLOOD UREA NITROGEN 14 mg/dL (7-18); CALCIUM 8.6 mg/dL (8.5-10.1); CARBON DIOXIDE 28.8 mmol/L (21-32); CHLORIDE 105 mmol/L (98-107); COR CA(FOR HYPOALB) 9.5 mg/dL (8.5-10.1); CREATININE 1.29 mg/dL (0.55-1.02); LIPASE 41 Units/L (73-393); SODIUM 141 mmol/L (136-145); TOTAL PROTEIN 5.9 g/dL (6.4-8.2); eGFR NON BLACK RACES 42 (>60)
[2021-03-04] MEDS: ANTIVERT TAB 25 MG PO SCH ×3 (09:36→21:47)
[2021-03-04] MEDS: LOVENOX INJ 40 MG SYR SC SCH (09:37)
[2021-03-04] MEDS ORDERED: PEPCID 20 MG IV PREMIX* 20 MG/50 ML BAG IV PRN (10:00)
--- NOTE | 2021-03-04 10:42 | DR.H&P ---
H&P - History & Physical for Day of: H&P Date: 03/03/21 - Chief Complaint Chief Complaint: WEAKNESS, DIZZINESS, ABDOMINAL PAIN, N/V/D, RIGHT EAR PAIN - History of Present Illness History of Present Illness: IS A 80 YEAR OLD PATIENT OF OURS. SHE PRESENTED TO THE ER ON 03/03/21 WITH REPORTS OF ABDOMINAL PAIN, NAUSEA, VOMITING, AND DIARRHEA SINCE 4:00AM. SHE DESCRIBED ABDOMINAL PAIN DIFFUSE, CRAMPING, AND RATED IT A 6/10. SHE ALSO REPORTS SEVERE DIZZINESS, WEAKNESS, HEADACHE, AND DISCOMFORT TO THE RIGHT EAR. HER PMH INCLUDES: CAD, DEMENTIA, DM II, DYSLIPIDEMIA, GERD, HTN, SLEEP APNEA, CARDIAC STENTS/APPENDECTOM, CHOLECYSTECTO MY, AND HYSTERECTOMY. ON ARRIVAL TO THE HOSPITAL, VITALS WERE 97.7-93-20-95%-187/86. LABS WERE OBTAINED. ABNORMAL LAB VALUES INCLUDE THE FOLLOWING: HGB 11.6, HCT 33.8, SODIUM 134, GLUCOSE 269, ALK PHOS 127, AMYLASE 20, LIPASE 68. CARDIAC ENZYMES WERE WITHIN NORMAL LIMITS. URINALYSIS IS UNREMARKABLE. ACETONES NEGATIVE. INFLUENZA AND COVID-19 NEGATIVE. AN ABDOMEN/PELVIS CT WAS OBTAINED AND REVEALED: Lack of contrast limits evaluation. Lung bases demonstrate mild patchy opacities likely subsegmental atelectasis. Trace right pleural effusion. The heart is mildly enlarged. 1.9 cm cyst in the anterior liver image 16 series 3. Status post cholecystectomy. The spleen, pancreas, and adrenal glands have a benign noncontrast appearance. There is mild bilateral hydronephrosis without distal obstructing calculus. The urinary bladder is mildly distended. Status post hysterectomy. The appendix is not well visualized but there is no significant inflammatory change in its expected location. Negative for bowel obstruction. Mildly atherosclerotic normal caliber abdominal aorta. Tiny hiatal hernia. No pathologic adenopathy. No free air, free fluid or collection. Mild leftward curvature of the lumbar spine apex L2-3. T10 hemangioma measuring 1.9 cm image 40 series 5. Severe L4-5 facet arthropathy with degenerative grade [address] WAS OBTAINED AND REVEALED: 1. No acute intracranial abnormality identified. 2. Meningioma extending from the vertex towards the mid superior medial parietal region. EKG REVEALED: SINUS RHYTHM WITH HR 76. A CARRILLO CATHETER WAS PLACED IN THE ER. IN THE ER, SHE WAS GIVEN NS AT 125 ML/HR, ZOFRAN 4MG IV X 1, DEMEROL 12.5MG IV X 2 DOSES, APRESOLINE 10MG IV X 1 DOSE. SHE WAS ADMITTED TO THE HOSPITAL FOR FURTHER EVALUATION AND TREATMENT OF SEVERE VERTIGO, NAUSEA, GASTRITIS, ABDOMINAL PAIN, GENERALIZED WEAKNESS, BLADDER OUTLET OBSTRUCTION. SHE WAS STARTED ON NORMAL SALINE AT 50 ML/HR, INVANZ 1G IV HS, MECLIZINE 25MG PO TID, PEPCID 20MG IV BID, LOVENOX 40MG SC DAILY, MORPHINE SULFATE 2MG IV Q4H PRN, ZOFRAN 4MG IV Q6H PRN, PROMETHAZINE 12.5MG IM Q6H PRN. OTHERWISE, WE PLAN TO FOLLOW UP WITH AM LABS AND CONTINUE TO MONITOR. TIME SPENT ON CLINICAL ASSESSMENT, REVIEWING LABS AND IMAGING, DECISION MAKING, AND DOCUMENTATION GREATER THAN 75 MINUTES. - Past Medical History Past Medical History: Coronary Artery Disease, Hypertension, Dyslipidemia, Diabetes, Dementia, GERD, Sleep Apnea - Past Surgical History Surgical History: Angioplasty/Stents, Appendectomy, Cholecystectomy, Hysterectomy - Family History Family Medical History: Diabetes Mellitus, Cancer, [place], Coronary Artery Disease, Hypertension - Social History Does patient currently use any type of tobacco product: No Have you used tobacco products in the last 12 months: No Type of Tobacco Use: None Does any household member use tobacco: No Alcohol Use: None Drug Use: None - Medications Home Medications: Penicillins Allergy (Verified 02/15/21 09:43) Sulfa (Sulfonamide Antibiotics) [SULFA] Allergy (Verified 02/15/21 09:43) CONTINUE taking the following medications diclofenac sodium 1 ea TOPICAL QID PRN 03/03/21 [History] insulin aspart U-100 [Novolog U-100 Insulin aspart] 2 - 12 unit SUBCUT ACHS 03/04/21 [History] - Review of Systems Constitutional: See HPI, Weakness, Malaise Eyes: No Symptoms Reported ENT: See HPI, Ear Pain Respiratory: No Symptoms Reported Cardiovascular: Light Headedness Gastrointestinal: Nausea, Vomiting, Abdominal Pain, Diarrhea Genitourinary: No Symptoms Reported Musculoskeletal: No Symptoms Reported Skin: No Symptoms Reported Neurological: Weakness - Physical Exam Vital Signs: Temperature 99.3 F Pulse Rate [Left Radial] 84 Pulse Rate 86 Respiratory Rate 18 Blood Pressure [Left Arm] 154/72 Blood Pressure 175/84 O2 Sat by Pulse Oximetry 97 Oriented: Normal Eyes: Normal Ear: Right (FLUID BUILD UP MIDDLE EAR) Nose: Normal Throat: Normal Respiratory: Diminished Throughout Cardiovascular: Normal : Normal Auscultation: Bowel Sounds: Normal Palpation: Normal Tenderness: Diffuse, Moderate Skin: Decreased Turgur Musculoskeletal: Normal Psychiatric: Normal Mood Description: Calm Affect: Normal Speech Pattern: Clear - Assessment/Plan (1) Vertigo Status: Acute Plan: ADMIT, NORMAL SALINE AT 50 ML/HR, INVANZ 1G IV HS, MECLIZINE 25MG PO TID, PEPCID 20MG IV BID, LOVENOX 40MG SC DAILY, MORPHINE SULFATE 2MG IV Q4H PRN, ZOFRAN 4MG IV Q6H PRN, PROMETHAZINE 12.5MG IM Q6H PRN. (2) Gastritis Qualifiers: Gastritis type: unspecified gastritis Chronicity: acute Gastritis bleeding: presence of bleeding unspecified Qualified Code(s): K29.00 - Acute gastritis without bleeding Status: Acute (3) Bladder outlet obstruction Status: Acute (4) Abdominal pain Qualifiers: Abdominal location: generalized Qualified Code(s): R10.84 - Generalized abdominal pain Status: Acute (5) Nausea and vomiting Qualifiers: Vomiting type: unspecified Qualified Code(s): R11.2 - Nausea with vomiting, unspecified Status: Acute (6) Diarrhea Qualifiers: Diarrhea type: unspecified type Qualified Code(s): R19.7 - Diarrhea, unspecified Status: Acute (7) Generalized weakness Status: Acute - Allergies Allergies/Adverse Reactions: Allergies Allergy/AdvReac Type Severity Reaction Status Date / Time Penicillins Allergy Verified 02/15/21 09:43 Sulfa (Sulfonamide Allergy Verified 02/15/21 09:43 Antibiotics) [SULFA]
[2021-03-04] MEDS ORDERED: PEPCID 20 MG IV PREMIX* 20 MG/50 ML BAG IV SCH (11:00)
[2021-03-04] MEDS: NS 1,000 ML IV 1,000 ML IV SCH (11:01)
[2021-03-04] MEDS ORDERED: VOLTAREN 1 % GEL MULTI DOSE TUBE TOP PRN (12:51)
[2021-03-04] MEDS ORDERED: GLUCOPHAGE ONE ×2 (14:28→20:54)
[2021-03-04] MEDS: APRESOLINE TAB 25 MG PO SCH ×2 (14:38→21:43)
[2021-03-04] MEDS: MICRO K EXTEN CAP 10 MEQ PO SCH (14:39)
[2021-03-04] MEDS: LIPITOR TAB 80 MG PO SCH (14:39)
[2021-03-04] MEDS: GLUCOPHAGE PO SCH ×2 (14:39→21:46)
[2021-03-04] MEDS: NORVASC TAB 5 MG PO SCH (14:39)
[2021-03-04] MEDS: HEMOCYTE-PLUS PO SCH (14:39)
[2021-03-04] MEDS: PROTONIX TAB 40 MG PO SCH ×2 (14:40→21:47)
[2021-03-04 16:15] VITALS: BMI 32.9
[2021-03-04] MEDS: MORPHINE SULFATE INJ 2 MG INJ IVP PRN (18:14)
[2021-03-04] MEDS: INVANZ INJ 1 GM VIAL 1 GM in NS 100 ML IV + SPIKE MINIBAG* 100 ML IV SCH (21:47)
[2021-03-04] MEDS: REQUIP PO SCH (21:47)
[2021-03-05] MEDS: ZOFRAN INJ 4 MG VIAL IVP PRN ×2 (00:30→23:20)
[2021-03-05] MEDS: NS 1,000 ML IV 1,000 ML IV SCH ×3 (05:10→16:48)
[2021-03-05] MEDS: ANTIVERT TAB 25 MG PO SCH ×3 (05:11→21:54)
[2021-03-05 06:41] LABS: BASOPHILS # (AUTO) 0.1 X10^3/uL (0.0-0.1); BASOPHILS % (AUTO) 0.9 % (0.2-1.0); EOSINOPHILS % (AUTO) 0.4 % (0.9-2.9); HEMATOCRIT 31.9 % (36.0-47.0); HEMOGLOBIN 11.1 g/dL (12.0-16.0); LYMPHOCYTES % (AUTO) 12.4 % (21.0-51.0); MEAN CORPUSCULAR HEMOGLOBIN 30.6 pg (27.0-34.0); MEAN CORPUSCULAR HGB CONC 34.9 g/dL (33.0-35.0); MEAN CORPUSCULAR VOLUME 87.7 fL (80.0-100.0); MEAN PLATELET VOLUME 8.5 fL (7.4-11.0); MONOCYTES # (AUTO) 0.4 x10^3/uL (0.3-0.8); MONOCYTES % (AUTO) 5.1 % (0.0-13.0); NEUTROPHILS # (AUTO) 6.7 x10^3/uL (2.2-4.8); NEUTROPHILS % (AUTO) 81.2 % (42.0-75.0); PLATELET COUNT 241 X10^3/uL (150.0-450.0); RED BLOOD COUNT 3.64 X10^6/uL (3.5-5.4); RED CELL DISTRIBUTION WIDTH 14.3 % (11.6-16.5); WHITE BLOOD COUNT 8.3 X10^3/uL (3.6-10.0)
--- NOTE | 2021-03-05 06:52 | RAD ---
HISTORYSOB HX: SD, HTM, DM SXX: STENTS, GB, APPENDECTOMY, HYST.STUDYCHEST, 1 SOCKBNVRLLAXII21/23/2021FINDINGSThe trachea is midline. Stable mild cardiomegaly. There is emphysema in the upper lobesNo evidence of focal pneumonia, pneumothorax or pleural effusion. Osseus structures are unremarkable.IMPRESSIONNo acute cardiopulmonary findings. Emphysema.Electronically signed by: Sherlyn Dumont (Mar 05, 2021 06:50:41)
[2021-03-05 07:08] LABS: ALBUMIN 2.9 g/dL (3.4-5.0); CALCIUM 8.2 mg/dL (8.5-10.1); CARBON DIOXIDE 26.4 mmol/L (21-32); COR CA(FOR HYPOALB) 9.1 mg/dL (8.5-10.1); CREATININE 1.36 mg/dL (0.55-1.02)
[2021-03-05] MEDS ORDERED: GLUCOPHAGE ONE ×2 (08:43→20:23)
[2021-03-05] MEDS: APRESOLINE TAB 25 MG PO SCH ×2 (09:01→21:53)
[2021-03-05] MEDS: HEMOCYTE-PLUS PO SCH (09:01)
[2021-03-05] MEDS: LIPITOR TAB 80 MG PO SCH (09:01)
[2021-03-05] MEDS: MICRO K EXTEN CAP 10 MEQ PO SCH (09:01)
[2021-03-05] MEDS: GLUCOPHAGE PO SCH ×2 (09:01→21:40)
[2021-03-05] MEDS: PROTONIX TAB 40 MG PO SCH ×2 (09:02→21:53)
[2021-03-05] MEDS: NORVASC TAB 5 MG PO SCH (09:02)
[2021-03-05] MEDS: PEPCID TAB 20 MG PO SCH (09:02)
[2021-03-05] MEDS: LOVENOX INJ 40 MG SYR SC SCH (10:18)
[2021-03-05] MEDS: NovoLIN R (or HumuLIN R) SUBCUT PRN ×2 (12:08→17:00)
[2021-03-05] MEDS: MORPHINE SULFATE INJ 2 MG INJ IVP PRN ×2 (12:21→17:01)
[2021-03-05] MEDS: SNACK - Diabetic Appropriate PO SCH (20:30)
[2021-03-05] MEDS: INVANZ INJ 1 GM VIAL 1 GM in NS 100 ML IV + SPIKE MINIBAG* 100 ML IV SCH (21:53)
[2021-03-05] MEDS: REQUIP PO SCH (21:53)
[2021-03-06] MEDS: ANTIVERT TAB 25 MG PO SCH ×3 (05:26→21:50)
[2021-03-06] MEDS: NS 1,000 ML IV 1,000 ML IV SCH (06:04)
[2021-03-06] MEDS: NovoLIN R (or HumuLIN R) SUBCUT PRN ×4 (06:07→20:40)
[2021-03-06 06:36] LABS: BASOPHILS # (AUTO) 0.1 X10^3/uL (0.0-0.1); BASOPHILS % (AUTO) 0.9 % (0.2-1.0); EOSINOPHILS # (AUTO) 0.2 x10^3/uL (0.0-0.2); EOSINOPHILS % (AUTO) 2.1 % (0.9-2.9); HEMATOCRIT 29.8 % (36.0-47.0); HEMOGLOBIN 10.4 g/dL (12.0-16.0); LYMPHOCYTES # (AUTO) 1.1 X10^3/uL (1.3-2.9); LYMPHOCYTES % (AUTO) 14.6 % (21.0-51.0); MEAN CORPUSCULAR HEMOGLOBIN 30.7 pg (27.0-34.0); MEAN CORPUSCULAR HGB CONC 34.9 g/dL (33.0-35.0); MEAN CORPUSCULAR VOLUME 87.7 fL (80.0-100.0); MEAN PLATELET VOLUME 8.5 fL (7.4-11.0); MONOCYTES # (AUTO) 0.6 x10^3/uL (0.3-0.8); MONOCYTES % (AUTO) 7.4 % (0.0-13.0); NEUTROPHILS # (AUTO) 5.7 x10^3/uL (2.2-4.8); PLATELET COUNT 232 X10^3/uL (150.0-450.0); RED CELL DISTRIBUTION WIDTH 14.3 % (11.6-16.5); WHITE BLOOD COUNT 7.6 X10^3/uL (3.6-10.0)
[2021-03-06 06:55] LABS: ALBUMIN 2.7 g/dL (3.4-5.0); CALCIUM 8.1 mg/dL (8.5-10.1); CARBON DIOXIDE 26.8 mmol/L (21-32); COR CA(FOR HYPOALB) 9.1 mg/dL (8.5-10.1); CREATININE 1.14 mg/dL (0.55-1.02); TOTAL PROTEIN 5.9 g/dL (6.4-8.2)
[2021-03-06] MEDS ORDERED: GLUCOPHAGE ONE ×2 (08:22→20:27)
[2021-03-06] MEDS: APRESOLINE TAB 25 MG PO SCH ×2 (08:46→21:50)
[2021-03-06] MEDS: GLUCOPHAGE PO SCH ×2 (08:46→21:50)
[2021-03-06] MEDS: PROTONIX TAB 40 MG PO SCH ×2 (08:48→21:50)
[2021-03-06] MEDS: PEPCID TAB 20 MG PO SCH (08:48)
[2021-03-06] MEDS: HEMOCYTE-PLUS PO SCH (08:50)
[2021-03-06] MEDS: LIPITOR TAB 80 MG PO SCH (08:50)
[2021-03-06] MEDS: NORVASC TAB 5 MG PO SCH (08:50)
[2021-03-06] MEDS: MICRO K EXTEN CAP 10 MEQ PO SCH (08:51)
[2021-03-06] MEDS: LOVENOX INJ 40 MG SYR SC SCH (08:51)
[2021-03-06] MEDS: VOLTAREN 1 % GEL MULTI DOSE TUBE TOP SCH ×2 (11:58→21:50)
[2021-03-06] MEDS: TORADOL 15 MG VIAL IVP SCH (11:59)
[2021-03-06] MEDS ORDERED: CLARITIN ONE (13:20)
[2021-03-06] MEDS: CLARITIN-D 12 HOUR TAB PO SCH (14:23)
[2021-03-06] MEDS: ZOFRAN INJ 4 MG VIAL IVP PRN (20:35)
[2021-03-06] MEDS: SNACK - Diabetic Appropriate PO SCH (21:50)
[2021-03-06] MEDS: INVANZ INJ 1 GM VIAL 1 GM in NS 100 ML IV + SPIKE MINIBAG* 100 ML IV SCH (21:50)
[2021-03-06] MEDS: SINGULAIR TAB 10 MG PO SCH (21:50)
[2021-03-06] MEDS: REQUIP PO SCH (21:50)
[2021-03-07] MEDS: TORADOL 15 MG VIAL IVP SCH ×4 (02:30→17:04)
[2021-03-07] MEDS: ZOFRAN INJ 4 MG VIAL IVP PRN (02:33)
[2021-03-07] MEDS: ANTIVERT TAB 25 MG PO SCH ×3 (06:21→21:53)
[2021-03-07] MEDS: NovoLIN R (or HumuLIN R) SUBCUT PRN ×4 (06:23→20:46)
[2021-03-07] MEDS: NS 1,000 ML IV 1,000 ML IV SCH ×4 (06:25→23:28)
[2021-03-07 06:28] LABS: BASOPHILS # (AUTO) 0.1 X10^3/uL (0.0-0.1); BASOPHILS % (AUTO) 0.9 % (0.2-1.0); EOSINOPHILS # (AUTO) 0.2 x10^3/uL (0.0-0.2); EOSINOPHILS % (AUTO) 3.1 % (0.9-2.9); HEMATOCRIT 28.7 % (36.0-47.0); HEMOGLOBIN 9.9 g/dL (12.0-16.0); LYMPHOCYTES # (AUTO) 1.1 X10^3/uL (1.3-2.9); LYMPHOCYTES % (AUTO) 13.8 % (21.0-51.0); MEAN CORPUSCULAR HEMOGLOBIN 30.5 pg (27.0-34.0); MEAN CORPUSCULAR HGB CONC 34.7 g/dL (33.0-35.0); MEAN CORPUSCULAR VOLUME 87.9 fL (80.0-100.0); MEAN PLATELET VOLUME 8.2 fL (7.4-11.0); MONOCYTES # (AUTO) 0.6 x10^3/uL (0.3-0.8); MONOCYTES % (AUTO) 7.3 % (0.0-13.0); NEUTROPHILS # (AUTO) 5.9 x10^3/uL (2.2-4.8); NEUTROPHILS % (AUTO) 74.9 % (42.0-75.0); PLATELET COUNT 200 X10^3/uL (150.0-450.0); RED BLOOD COUNT 3.27 X10^6/uL (3.5-5.4); WHITE BLOOD COUNT 7.8 X10^3/uL (3.6-10.0)
[2021-03-07 06:44] LABS: ALANINE AMINOTRANSFERASE 17 Units/L (12-78); ALBUMIN 2.5 g/dL (3.4-5.0); ALKALINE PHOSPHATASE 93 Units/L (46-116); ASPARTATE AMINO TRANSFERASE 12 Units/L (15-37); BLOOD UREA NITROGEN 10 mg/dL (7-18); CALCIUM 8.2 mg/dL (8.5-10.1); CARBON DIOXIDE 25.9 mmol/L (21-32); CHLORIDE 103 mmol/L (98-107); COR CA(FOR HYPOALB) 9.4 mg/dL (8.5-10.1); COR NA(FOR HYPERGLY) 139 mmol/L (136-145); SODIUM 137 mmol/L (136-145); TOTAL PROTEIN 5.7 g/dL (6.4-8.2); eGFR NON BLACK RACES 51 (>60)
--- NOTE | 2021-03-07 08:20 | PCM.PROG ---
Progress Note - Progress Note for Day of Date of Exam: 03/05/21 - Subjective Subjective: IS BEING TREATED FOR VERTIGO, GASTRITIS, BLADDER OUTLET OBSTRUCTION, ABDOMINAL PAIN. TODAY, SHE IS ALERT AND ORIENTED, LYING IN BED ON MORNING ROUNDS. SHE CONTINUES WITH COMPLAINTS OF WEAKNESS, DIZZINESS, AND NAUSEA. SHE DOES REPORT SLIGHT IMPROVEMENT IN SYMPTOMS SINCE ADMISSION. ON EXAMINATION, HEART IS REGULAR IN RATE AND RHYTHM. BILATERAL LUNGS NOTED WITH DIMINISHED LUNG SOUNDS THROUGHOUT. ABDOMEN IS ROUND, SOFT, AND NON-TENDER. NORMAL BOWEL SOUNDS ARE NOTED IN ALL QUADRANTS. HER VITALS THIS MORNING ARE: 98.4-90-18-98%-187/79. LABS WERE OBTAINED. ABNORMAL LAB VALUES INCLUDE THE FOLLOWING: HGB 11.1, HCT 31.9, CREATININE 1.36, GLUCOSE 242, CALCIUM 8.2, TOTAL PROTEIN 6.0, ALBUMIN 2.9, AMYLASE 16, LIPASE 40. A CHEST XRAY WAS REPEATED AND REVEALED: No acute cardiopulmonary findings. Emphysema. SHE IS CURRENTLY RECEIVING NORMAL SALINE AT 50 ML/HR, INVANZ 1G IV HS, MECLIZINE 25MG PO TID, PEPCID 20MG IV BID, LOVENOX 40MG SC DAILY, MORPHINE SULFATE 2MG IV Q4H PRN, ZOFRAN 4MG IV Q6H PRN, PROMETHAZINE 12.5MG IM Q6H PRN. HER HOME MEDICATIONS WERE RESUMED. WE WILL CONTINUE WITH CURRENT PLAN OF CARE TODAY. OTHERWISE, WE PLAN TO FOLLOW UP WITH AM LABS AND CONTINUE TO MONITOR. TIME SPENT ON CLINICAL ASSESSMENT, REVIEWING LABS AND IMAGING, DECISION MAKING, AND DOCUMENTATION G REATER THAN 45 MINUTES. - Past Medical Family Social History Past Med/Fam/Surg Hx: No changes since H&P Allergies: Allergies Penicillins Allergy (Verified 02/15/21 09:43) Sulfa (Sulfonamide Antibiotics) [SULFA] Allergy (Verified 02/15/21 09:43) - Review of Systems ROS: No change since H&P - Vital Signs and I&O's Vital Signs: Temperature 98.4 F Pulse Rate [Left Radial] 90 Pulse Rate 86 Respiratory Rate 21 Blood Pressure [Left Arm] 133/63 Blood Pressure 175/84 O2 Sat by Pulse Oximetry 95 Intake and Output: Intake & Output 03/04/21 03/05/21 03/06/21 03/07/21 11:59 11:59 11:59 11:59 Intake Total 641 / 641 2588 / 2588 1698 / 1698 208 / 2086 Output Total 2225 / 2225 2400 / 2400 1725 / 1725 650 / 650 Balance -1584 / -1584 188 / 188 -27 / -27 1436 / 1436 - Physical Exam Oriented: Normal Eyes: Normal Ear: Right (FLUID BUILD UP MIDDLE EAR) Nose: Normal Throat: Normal Respiratory: Generalized, Diminished Cardiovascular: Normal : Normal Auscultation: Bowel Sounds: Normal Palpation: Normal Tenderness: Normal Skin: Normal Musculoskeletal: Normal Psychiatric: Normal Mood Description: Calm Affect: Normal Speech Pattern: Clear, Appropriate - Laboratory and Diagnostics Result Diagrams: 03/07/21 05:45 03/07/21 05:45 Labs: Laboratory WBC 7.8 X10^3/uL (3.6-10.0) 03/07/21 05:45 RBC 3.27 X10^6/uL (3.5-5.4) L 03/07/21 05:45 Hgb 9.9 g/dL (12.0-16.0) L 03/07/21 05:45 Hct 28.7 % (36.0-47.0) L 03/07/21 05:45 MCV 87.9 fL (80.0-100.0) 03/07/21 05:45 MCH 30.5 pg (27.0-34.0) 03/07/21 05:45 MCHC 34.7 g/dL (33.0-35.0) 03/07/21 05:45 RDW 14.0 % (11.6-16.5) 03/07/21 05:45 Plt Count 200 X10^3/uL (150.0-450.0) 03/07/21 05:45 Plt Count Comment Adequate (ADEQUATE) 03/03/21 10:45 MPV 8.2 fL (7.4-11.0) 03/07/21 05:45 Neut % (Auto) 74.9 % (42.0-75.0) 03/07/21 05:45 Lymph % (Auto) 13.8 % (21.0-51.0) L 03/07/21 05:45 [place] % (Auto) 7.3 % (0.0-13.0) 03/07/21 05:45 Eos % (Auto) 3.1 % (0.9-2.9) H 03/07/21 05:45 Baso % (Auto) 0.9 % (0.2-1.0) 03/07/21 05:45 Neut # (Auto) 5.9 x10^3/uL (2.2-4.8) H 03/07/21 05:45 Lymph # (Auto) 1.1 X10^3/uL (1.3-2.9) L 03/07/21 05:45 [place] # (Auto) 0.6 x10^3/uL (0.3-0.8) 03/07/21 05:45 Eos # (Auto) 0.2 x10^3/uL (0.0-0.2) 03/07/21 05:45 Baso # (Auto) 0.1 X10^3/uL (0.0-0.1) 03/07/21 05:45 Absolute Nucleated RBC 0.0 /100WBC 03/07/21 05:45 Total Counted 100 03/03/21 10:45 Neutrophils % (Manual) 93 % (39-76) H 03/03/21 10:45 Band Neutrophils % 1 % (0-10) 03/03/21 10:45 Lymphocytes % (Manual) 5 % (13-43) L 03/03/21 10:45 Eosinophils % (Manual) 1 % (0-6) 03/03/21 10:45 Plt Morphology Comment Normal (NORMAL) 03/03/21 10:45 RBC Morphology Normal (NORMAL) 03/03/21 10:45 Sodium 137 mmol/L (136-145) 03/07/21 05:45 Corrected Sodium 139 mmol/L (136-145) 03/07/21 05:45 Potassium 4.3 mmol/L (3.5-5.1) 03/07/21 05:45 Chloride 103 mmol/L (98-107) 03/07/21 05:45 Carbon Dioxide 25.9 mmol/L (21-32) 03/07/21 05:45 BUN 10 mg/dL (7-18) 03/07/21 05:45 Creatinine 1.10 mg/dL (0.55-1.02) H 03/07/21 05:45 Est GFR (MDRD) Af Amer > 60 (>60) 03/07/21 05:45 Est GFR (MDRD) Non-Af 51 (>60) L 03/07/21 05:45 Glucose 176 mg/dL (65-99) H 03/07/21 05:45 POC Glucose (mg/dL) 176 mg/dL (65-99) H 03/07/21 05:35 Calcium 8.2 mg/dL (8.5-10.1) L 03/07/21 05:45 Corrected Calcium 9.4 mg/dL (8.5-10.1) 03/07/21 05:45 Total Bilirubin 0.50 mg/dL (0.2-1.0) 03/07/21 05:45 AST 12 Units/L (15-37) L 03/07/21 05:45 ALT 17 Units/L (12-78) 03/07/21 05:45 Alkaline Phosphatase 93 Units/L (46-116) 03/07/21 05:45 Creatine Kinase 66 Units/L (26-192) 03/03/21 18:59 CK-MB (CK-2) 1.0 ng/mL (0-4.0) 03/03/21 18:59 CK/CKMB % Calc 1.5 % (<4) 03/03/21 18:59 Troponin I < 0.02 ng/mL (0-1.5) 03/03/21 18:59 Total Protein 5.7 g/dL (6.4-8.2) L 03/07/21 05:45 Albumin 2.5 g/dL (3.4-5.0) L 03/07/21 05:45 Globulin 3.2 g/dL (2.5-4.5) 03/07/21 05:45 Albumin/Globulin Ratio 0.8 Ratio (1.1-2.1) L 03/07/21 05:45 Amylase 16 Units/L (25-115) L 03/05/21 05:55 Lipase 40 Units/L (73-393) L 03/05/21 05:55 Specimen Type Catherized urine 03/03/21 17:38 Urine Color Yellow (YELLOW) 03/03/21 17:38 Urine Appearance Hazy (CLEAR) 03/03/21 17:38 Urine pH 7.0 (5.0 - 8.0) 03/03/21 17:38 Ur Specific [place] 1.010 (1.000-1.030) 03/03/21 17:38 Urine Protein 2+ (NEGATIVE) 03/03/21 17:38 Urine Glucose (UA) 3+ (NEGATIVE) 03/03/21 17:38 Urine Ketones 1+ (NEGATIVE) 03/03/21 17:38 Urine Occult Blood 1+ (NEGATIVE) 03/03/21 17:38 Urine Nitrite Negative (NEGATIVE) 03/03/21 17:38 Urine Bilirubin Negative (NEGATIVE) 03/03/21 17:38 Urine Urobilinogen Normal (NORMAL) 03/03/21 17:38 Ur Leukocyte Esterase Negative (NEGATIVE) 03/03/21 17:38 Urine RBC 3-5 /HPF (0-3) A 03/03/21 17:38 Urine WBC 0-2 /HPF (0-5) 03/03/21 17:38 Ur Squamous Epith Cells Rare /HPF (NEGATIVE) 03/03/21 17:38 Ur Transition Epith Cell Rare /HPF (NEGATIVE) 03/03/21 12:10 Amorphous Sediment Trace /HPF (NEGATIVE) 03/03/21 17:38 Urine Bacteria Negative /HPF (NEGATIVE) 03/03/21 17:38 Urine Mucus Rare /HPF (NEGATIVE) 03/03/21 12:10 Ur Culture Indicated? No/not indicated 03/03/21 17:38 Acetone, Semi-Quant Negative (NEGATIVE) 03/03/21 10:45 Influenza Type A Ag Negative-presumptive (NEGATIVE) 03/03/21 10:50 Influenza Type B Ag Negative-presumptive (NEGATIVE) 03/03/21 10:50 SARS CoV-2 RNA Rapid SKYE Negative (NEGATIVE) 03/03/21 10:50 - Plan (1) Vertigo Status: Acute Plan: NORMAL SALINE AT 50 ML/HR, INVANZ 1G IV HS, MECLIZINE 25MG PO TID, PEPCID 20MG IV BID, LOVENOX 40MG SC DAILY, MORPHINE SULFATE 2MG IV Q4H PRN, ZOFRAN 4MG IV Q6H PRN, PROMETHAZINE 12.5MG IM Q6H PRN. RESUME HOME MEDS (2) Gastritis Status: Acute Qualifiers: Gastritis type: unspecified gastritis Chronicity: acute Gastritis bleeding: presence of bleeding unspecified Qualified Code(s): K29.00 - Acute gastritis without bleeding (3) Bladder outlet obstruction Status: Acute (4) Abdominal pain Status: Acute Qualifiers: Abdominal location: generalized Qualified Code(s): R10.84 - Generalized abdominal pain (5) Nausea and vomiting Status: Acute Qualifiers: Vomiting type: unspecified Qualified Code(s): R11.2 - Nausea with vomiting, unspecified (6) Diarrhea Status: Acute Qualifiers: Diarrhea type: unspecified type Qualified Code(s): R19.7 - Diarrhea, unspecified (7) Generalized weakness Status: Acute
[2021-03-07] MEDS ORDERED: GLUCOPHAGE ONE ×2 (08:25→20:25)
--- NOTE | 2021-03-07 08:25 | PCM.PROG ---
Progress Note - Progress Note for Day of Date of Exam: 03/06/21 - Subjective Subjective: IS BEING TREATED FOR VERTIGO, GASTRITIS, BLADDER OUTLET OBSTRUCTION, ABDOMINAL PAIN. TODAY, SHE IS ALERT AND ORIENTED, LYING IN BED ON MORNING ROUNDS. SHE CONTINUES WITH COMPLAINTS OF WEAKNESS, DIZZINESS, AND NAUSEA. SHE ALSO COMPLAINS OF SINUS CONGESTION AND GENERALIZED ACHING THIS MORNING. ON EXAMINATION, HEART IS REGULAR IN RATE AND RHYTHM. BILATERAL LUNGS NOTED WITH DIMINISHED LUNG SOUNDS THROUGHOUT. ABDOMEN IS ROUND, SOFT, AND NON- TENDER. NORMAL BOWEL SOUNDS ARE NOTED IN ALL QUADRANTS. HER VITALS THIS MORNING ARE: 97.5-100-20-98%-176/79. LABS WERE OBTAINED. ABNORMAL LAB VALUES INCLUDE THE FOLLOWING: RBC 3.40, HGB 10.4, HCT 29.8, CREATININE 1.14, GLUCOSE 180, CALCIUM 8.1, AST 12, TOTAL PROTEIN 5.9, ALBUMIN 2.7. SHE IS CURRENTLY RECEIVING NORMAL SALINE AT 50 ML/HR, INVANZ 1G IV HS, MECLIZINE 25MG PO TID, PEPCID 20MG IV BID, LOVENOX 40MG SC DAILY, MORPHINE SULFATE 2MG IV Q4H PRN, ZOFRAN 4MG IV Q6H PRN, PROMETHAZINE 12.5MG IM Q6H PRN. HER HOME MEDICATIONS WERE RESUMED. TODAY, WE WILL START TORADOL 15MG IV Q8H, CLARITIN D 1 TABLET DAILY, AND SINGULAIR 10MG HS. OTHERWISE, WE WILL CONTINUE WITH CURRENT PLAN OF CARE TODAY. WE PLAN TO FOLLOW UP WITH AM LABS AND CONTINUE TO MONITOR. TIME SPENT ON CLINICAL ASSESSMENT, REVIEWING LABS AND IMAGING, DECISION MAKING, AND DOCUMENTATION GREATER THAN 45 MINUTES. - Past Medical Family Social History Past Med/Fam/Surg Hx: No changes since H&P Allergies: Allergies Penicillins Allergy (Verified 02/15/21 09:43) Sulfa (Sulfonamide Antibiotics) [SULFA] Allergy (Verified 02/15/21 09:43) - Review of Systems ROS: No change since H&P - Vital Signs and I&O's Vital Signs: Temperature 98.4 F Pulse Rate [Left Radial] 90 Pulse Rate 86 Respiratory Rate 21 Blood Pressure [Left Arm] 133/63 Blood Pressure 175/84 O2 Sat by Pulse Oximetry 95 Intake and Output: Intake & Output 03/04/21 03/05/21 03/06/2103/07/21 11:59 11:59 11:59 11:59 Intake Total 641 / 641 2588 / 2588 1698 / 1698 2086 / 2086 Output Total 2225 / 2225 2400 / 2400 1725 / 1725 650 / 650 Balance -1584 / -1584 188 / 188 -27 / -27 1436 / 1436 - Physical Exam Oriented: Normal Eyes: Normal Ear: Right (FLUID BUILD UP MIDDLE EAR) Nose: Normal Throat: Normal Respiratory: Generalized, Diminished Cardiovascular: Normal : Normal Auscultation: Bowel Sounds: Normal Palpation: Normal Tenderness: Normal Skin: Normal Musculoskeletal: Normal Psychiatric: Normal Mood Description: Calm Affect: Normal Speech Pattern: Clear, Appropriate - Laboratory and Diagnostics Result Diagrams: 03/07/21 05:45 03/07/21 05:45 Labs: Laboratory WBC 7.8 X10^3/uL (3.6-10.0) 03/07/21 05:45 RBC 3.27 X10^6/uL (3.5-5.4) L 03/07/21 05:45 Hgb 9.9 g/dL (12.0-16.0) L 03/07/21 05:45 Hct 28.7 % (36.0-47.0) L 03/07/21 05:45 MCV 87.9 fL (80.0-100.0) 03/07/21 05:45 MCH 30.5 pg (27.0-34.0) 03/07/21 05:45 MCHC 34.7 g/dL (33.0-35.0) 03/07/21 05:45 RDW 14.0 % (11.6-16.5) 03/07/21 05:45 Plt Count 200 X10^3/uL (150.0-450.0) 03/07/21 05:45 Plt Count Comment Adequate (ADEQUATE) 03/03/21 10:45 MPV 8.2 fL (7.4-11.0) 03/07/21 05:45 Neut % (Auto) 74.9 % (42.0-75.0) 03/07/21 05:45 Lymph % (Auto) 13.8 % (21.0-51.0) L 03/07/21 05:45 [place] % (Auto) 7.3 % (0.0-13.0) 03/07/21 05:45 Eos % (Auto) 3.1 % (0.9-2.9) H 03/07/21 05:45 Baso % (Auto) 0.9 % (0.2-1.0) 03/07/21 05:45 Neut # (Auto) 5.9 x10^3/uL (2.2-4.8) H 03/07/21 05:45 Lymph # (Auto) 1.1 X10^3/uL (1.3-2.9) L 03/07/21 05:45 [place] # (Auto) 0.6 x10^3/uL (0.3-0.8) 03/07/21 05:45 Eos # (Auto) 0.2 x10^3/uL (0.0-0.2) 03/07/21 05:45 Baso # (Auto) 0.1 X10^3/uL (0.0-0.1) 03/07/21 05:45 Absolute Nucleated RBC 0.0 /100WBC 03/07/21 05:45 Total Counted 100 03/03/21 10:45 Neutrophils % (Manual) 93 % (39-76) H 03/03/21 10:45 Band Neutrophils % 1 % (0-10) 03/03/21 10:45 Lymphocytes % (Manual) 5 % (13-43) L 03/03/21 10:45 Eosinophils % (Manual) 1 % (0-6) 03/03/21 10:45 Plt Morphology Comment Normal (NORMAL) 03/03/21 10:45 RBC Morphology Normal (NORMAL) 03/03/21 10:45 Sodium 137 mmol/L (136-145) 03/07/21 05:45 Corrected Sodium 139 mmol/L (136-145) 03/07/21 05:45 Potassium 4.3 mmol/L (3.5-5.1) 03/07/21 05:45 Chloride 103 mmol/L (98-107) 03/07/21 05:45 Carbon Dioxide 25.9 mmol/L (21-32) 03/07/21 05:45 BUN 10 mg/dL (7-18) 03/07/21 05:45 Creatinine 1.10 mg/dL (0.55-1.02) H 03/07/21 05:45 Est GFR (MDRD) Af Amer > 60 (>60) 03/07/21 05:45 Est GFR (MDRD) Non-Af 51 (>60) L 03/07/21 05:45 Glucose 176 mg/dL (65-99) H 03/07/21 05:45 POC Glucose (mg/dL) 176 mg/dL (65-99) H 03/07/21 05:35 Calcium 8.2 mg/dL (8.5-10.1) L 03/07/21 05:45 Corrected Calcium 9.4 mg/dL (8.5-10.1) 03/07/21 05:45 Total Bilirubin 0.50 mg/dL (0.2-1.0) 03/07/21 05:45 AST 12 Units/L (15-37) L 03/07/21 05:45 ALT 17 Units/L (12-78) 03/07/21 05:45 Alkaline Phosphatase 93 Units/L (46-116) 03/07/21 05:45 Creatine Kinase 66 Units/L (26-192) 03/03/21 18:59 CK-MB (CK-2) 1.0 ng/mL (0-4.0) 03/03/21 18:59 CK/CKMB % Calc 1.5 % (<4) 03/03/21 18:59 Troponin I < 0.02 ng/mL (0-1.5) 03/03/21 18:59 Total Protein 5.7 g/dL (6.4-8.2) L 03/07/21 05:45 Albumin 2.5 g/dL (3.4-5.0) L 03/07/21 05:45 Globulin 3.2 g/dL (2.5-4.5) 03/07/21 05:45 Albumin/Globulin Ratio 0.8 Ratio (1.1-2.1) L 03/07/21 05:45 Amylase 16 Units/L (25-115) L 03/05/21 05:55 Lipase 40 Units/L (73-393) L 03/05/21 05:55 Specimen Type Catherized urine 03/03/21 17:38 Urine Color Yellow (YELLOW) 03/03/21 17:38 Urine Appearance Hazy (CLEAR) 03/03/21 17:38 Urine pH 7.0 (5.0 - 8.0) 03/03/21 17:38 Ur Specific [place] 1.010 (1.000-1.030) 03/03/21 17:38 Urine Protein 2+ (NEGATIVE) 03/03/21 17:38 Urine Glucose (UA) 3+ (NEGATIVE) 03/03/21 17:38 Urine Ketones 1+ (NEGATIVE) 03/03/21 17:38 Urine Occult Blood 1+ (NEGATIVE) 03/03/21 17:38 Urine Nitrite Negative (NEGATIVE) 03/03/21 17:38 Urine Bilirubin Negative (NEGATIVE) 03/03/21 17:38 Urine Urobilinogen Normal (NORMAL) 03/03/21 17:38 Ur Leukocyte Esterase Negative (NEGATIVE) 03/03/21 17:38 Urine RBC 3-5 /HPF (0-3) A 03/03/21 17:38 Urine WBC 0-2 /HPF (0-5) 03/03/21 17:38 Ur Squamous Epith Cells Rare /HPF (NEGATIVE) 03/03/21 17:38 Ur Transition Epith Cell Rare /HPF (NEGATIVE) 03/03/21 12:10 Amorphous Sediment Trace /HPF (NEGATIVE) 03/03/21 17:38 Urine Bacteria Negative /HPF (NEGATIVE) 03/03/21 17:38 Urine Mucus Rare /HPF (NEGATIVE) 03/03/21 12:10 Ur Culture Indicated? No/not indicated 03/03/21 17:38 Acetone, Semi-Quant Negative (NEGATIVE) 03/03/21 10:45 Influenza Type A Ag Negative-presumptive (NEGATIVE) 03/03/21 10:50 Influenza Type B Ag Negative-presumptive (NEGATIVE) 03/03/21 10:50 SARS CoV-2 RNA Rapid SKYE Negative (NEGATIVE) 03/03/21 10:50 - Plan (1) Vertigo Status: Acute Plan: NORMAL SALINE AT 50 ML/HR, INVANZ 1G IV HS, MECLIZINE 25MG PO TID, PEPCID 20MG IV BID, LOVENOX 40MG SC DAILY, MORPHINE SULFATE 2MG IV Q4H PRN, ZOFRAN 4MG IV Q6H PRN, PROMETHAZINE 12.5MG IM Q6H PRN, TORADOL 15MG IV Q8H, CLARITIN D 1 TABLET DAILY, AND SINGULAIR 10MG HS. RESUME HOME MEDS (2) Gastritis Status: Acute Qualifiers: Gastritis type: unspecified gastritis Chronicity: acute Gastritis bleeding: presence of bleeding unspecified Qualified Code(s): K29.00 - Acute gastritis without bleeding (3) Bladder outlet obstruction Status: Acute (4) Abdominal pain Status: Acute Qualifiers: Abdominal location: generalized Qualified Code(s): R10.84 - Generalized abdominal pain (5) Nausea and vomiting Status: Acute Qualifiers: Vomiting type: unspecified Qualified Code(s): R11.2 - Nausea with vomiting, unspecified (6) Diarrhea Status: Acute Qualifiers: Diarrhea type: unspecified type Qualified Code(s): R19.7 - Diarrhea, unspecified (7) Generalized weakness Status: Acute
[2021-03-07] MEDS: VOLTAREN 1 % GEL MULTI DOSE TUBE TOP SCH ×2 (09:46→20:45)
[2021-03-07] MEDS: MICRO K EXTEN CAP 10 MEQ PO SCH (09:46)
[2021-03-07] MEDS: GLUCOPHAGE PO SCH ×2 (09:46→20:44)
[2021-03-07] MEDS: APRESOLINE TAB 25 MG PO SCH ×2 (09:46→20:44)
[2021-03-07] MEDS: LIPITOR TAB 80 MG PO SCH (09:47)
[2021-03-07] MEDS: PEPCID TAB 20 MG PO SCH (09:47)
[2021-03-07] MEDS: HEMOCYTE-PLUS PO SCH (09:47)
[2021-03-07] MEDS: NORVASC TAB 5 MG PO SCH (09:48)
[2021-03-07] MEDS: LOVENOX INJ 40 MG SYR SC SCH (09:48)
[2021-03-07] MEDS: PROTONIX TAB 40 MG PO SCH ×2 (09:48→20:45)
[2021-03-07] MEDS: CLARITIN-D 12 HOUR TAB PO SCH (09:59)
--- NOTE | 2021-03-07 10:26 | PCM.PROG ---
Progress Note - Progress Note for Day of Date of Exam: 03/07/21 - Subjective Subjective: IS BEING TREATED FOR VERTIGO, GASTRITIS, BLADDER OUTLET OBSTRUCTION, ABDOMINAL PAIN. TODAY, SHE IS ALERT AND ORIENTED, LYING IN BED ON MORNING ROUNDS. SHE CONTINUES WITH COMPLAINTS OF WEAKNESS AND DIZZINESS AT TIMES. SHE DENIES NAUSEA OR HEADACHE THIS MORNING. ON EXAMINATION, HEART IS REGULAR IN RATE AND RHYTHM. BILATERAL LUNGS NOTED WITH DIMINISHED LUNG SOUNDS THROUGHOUT. ABDOMEN IS ROUND, SOFT, AND NON-TENDER. NORMAL BOWEL SOUNDS ARE NOTED IN ALL QUADRANTS. HER VITALS THIS MORNING ARE: 98.7-88-20-94%-173/77. LABS WERE OBTAINED. ABNORMAL LAB VALUES INCLUDE THE FOLLOWING: RBC 3.27, HGB 9.9, HCT 28.7, CREATININE 1.10, GLUCOSE 176, CALCIUM 8.2, AST 12, TOTAL PROTEIN 5.7, ALBU MIN 2.5. SHE IS CURRENTLY RECEIVING NORMAL SALINE AT 50 ML/HR, INVANZ 1G IV HS, MECLIZINE 25MG PO TID, PEPCID 20MG IV BID, LOVENOX 40MG SC DAILY, MORPHINE SULFATE 2MG IV Q4H PRN, ZOFRAN 4MG IV Q6H PRN, PROMETHAZINE 12.5MG IM Q6H PRN, TORADOL 15MG IV Q8H, CLARITIN D 1 TABLET DAILY, AND SINGULAIR 10MG HS. HER HOME MEDICATIONS WERE RESUMED. WE WILL HAVE PHYSICAL THERAPY WORK WITH PATIENT AND PERFORM CANALITH REPOSITIONING EXERCISES TODAY. OTHERWISE, WE PLAN TO FOLLOW UP WITH AM LABS AND CONTINUE TO MONITOR. TIME SPENT ON CLINICAL ASSESSMENT, REVIEWING LABS AND IMAGING, DECISION MAKING, AND DOCUMENTATION GREATER THAN 45 MINUTES. - Past Medical Family Social History Past Med/Fam/Surg Hx: No changes since H&P Allergies: Allergies Penicillins Allergy (Verified 02/15/21 09:43) Sulfa (Sulfonamide Antibiotics) [SULFA] Allergy (Verified 02/15/21 09:43) - Review of Systems ROS: No change since H&P - Vital Signs and I&O's Vital Signs: Temperature 98.7 F Pulse Rate [Right Brachial] 88 Pulse Rate [Left Radial] 90 Pulse Rate 86 Respiratory Rate 20 Blood Pressure [Right Arm] 173/77 Blood Pressure [Left Arm] 133/63 Blood Pressure 175/84 O2 Sat by Pulse Oximetry 94 Intake and Output: Intake & Output 03/04/21 03/05/21 03/06/21 03/07/21 11:59 11:59 11:59 11:59 Intake Total 641 / 641 2588 / 2588 1698 / 1698 2085 / 2085 Output Total 2225 / 2225 2400 / 2400 1725 / 1725 650 / 650 Balance -1584 / -1584 188 / 188 -27 / -27 1436 / 1436 - Physical Exam Oriented: Normal Eyes: Normal Ear: Right (FLUID BUILD UP MIDDLE EAR) Nose: Normal Throat: Normal Respiratory: Generalized, Diminished Cardiovascular: Normal : Normal Auscultation: Bowel Sounds: Normal Palpation: Normal Tenderness: Normal Skin: Normal Musculoskeletal: Normal Psychiatric: Normal Mood Description: Calm Affect: Normal Speech Pattern: Clear, Appropriate - Laboratory and Diagnostics Result Diagrams: 03/07/21 05:45 03/07/21 05:45 Labs: Laboratory WBC 7.8 X10^3/uL (3.6-10.0) 03/07/21 05:45 RBC 3.27 X10^6/uL (3.5-5.4) L 03/07/21 05:45 Hgb 9.9 g/dL (12.0-16.0) L 03/07/21 05:45 Hct 28.7 % (36.0-47.0) L 03/07/21 05:45 MCV 87.9 fL (80.0-100.0) 03/07/21 05:45 MCH 30.5 pg (27.0-34.0) 03/07/21 05:45 MCHC 34.7 g/dL (33.0-35.0) 03/07/21 05:45 RDW 14.0 % (11.6-16.5) 03/07/21 05:45 Plt Count 200 X10^3/uL (150.0-450.0) 03/07/21 05:45 Plt Count Comment Adequate (ADEQUATE) 03/03/21 10:45 MPV 8.2 fL (7.4-11.0) 03/07/21 05:45 Neut % (Auto) 74.9 % (42.0-75.0) 03/07/21 05:45 Lymph % (Auto) 13.8 % (21.0-51.0) L 03/07/21 05:45 [place] % (Auto) 7.3 % (0.0-13.0) 03/07/21 05:45 Eos % (Auto) 3.1 % (0.9-2.9) H 03/07/21 05:45 Baso % (Auto) 0.9 % (0.2-1.0) 03/07/21 05:45 Neut # (Auto) 5.9 x10^3/uL (2.2-4.8) H 03/07/21 05:45 Lymph # (Auto) 1.1 X10^3/uL (1.3-2.9) L 03/07/21 05:45 [place] # (Auto) 0.6 x10^3/uL (0.3-0.8) 03/07/21 05:45 Eos # (Auto) 0.2 x10^3/uL (0.0-0.2) 03/07/21 05:45 Baso # (Auto) 0.1 X10^3/uL (0.0-0.1) 03/07/21 05:45 Absolute Nucleated RBC 0.0 /100WBC 03/07/21 05:45 Total Counted 100 03/03/21 10:45 Neutrophils % (Manual) 93 % (39-76) H 03/03/21 10:45 Band Neutrophils % 1 % (0-10) 03/03/21 10:45 Lymphocytes % (Manual) 5 % (13-43) L 03/03/21 10:45 Eosinophils % (Manual) 1 % (0-6) 03/03/21 10:45 Plt Morphology Comment Normal (NORMAL) 03/03/21 10:45 RBC Morphology Normal (NORMAL) 03/03/21 10:45 Sodium 137 mmol/L (136-145) 03/07/21 05:45 Corrected Sodium 139 mmol/L (136-145) 03/07/21 05:45 Potassium 4.3 mmol/L (3.5-5.1) 03/07/21 05:45 Chloride 103 mmol/L (98-107) 03/07/21 05:45 Carbon Dioxide 25.9 mmol/L (21-32) 03/07/21 05:45 BUN 10 mg/dL (7-18) 03/07/21 05:45 Creatinine 1.10 mg/dL (0.55-1.02) H 03/07/21 05:45 Est GFR (MDRD) Af Amer > 60 (>60) 03/07/21 05:45 Est GFR (MDRD) Non-Af 51 (>60) L 03/07/21 05:45 Glucose 176 mg/dL (65-99) H 03/07/21 05:45 POC Glucose (mg/dL) 176 mg/dL (65-99) H 03/07/21 05:35 Calcium 8.2 mg/dL (8.5-10.1) L 03/07/21 05:45 Corrected Calcium 9.4 mg/dL (8.5-10.1) 03/07/21 05:45 Total Bilirubin 0.50 mg/dL (0.2-1.0) 03/07/21 05:45 AST 12 Units/L (15-37) L 03/07/21 05:45 ALT 17 Units/L (12-78) 03/07/21 05:45 Alkaline Phosphatase 93 Units/L (46-116) 03/07/21 05:45 Creatine Kinase 66 Units/L (26-192) 03/03/21 18:59 CK-MB (CK-2) 1.0 ng/mL (0-4.0) 03/03/21 18:59 CK/CKMB % Calc 1.5 % (<4) 03/03/21 18:59 Troponin I < 0.02 ng/mL (0-1.5) 03/03/21 18:59 Total Protein 5.7 g/dL (6.4-8.2) L 03/07/21 05:45 Albumin 2.5 g/dL (3.4-5.0) L 03/07/21 05:45 Globulin 3.2 g/dL (2.5-4.5) 03/07/21 05:45 Albumin/Globulin Ratio 0.8 Ratio (1.1-2.1) L 03/07/21 05:45 Amylase 16 Units/L (25-115) L 03/05/21 05:55 Lipase 40 Units/L (73-393) L 03/05/21 05:55 Specimen Type Catherized urine 03/03/21 17:38 Urine Color Yellow (YELLOW) 03/03/21 17:38 Urine Appearance Hazy (CLEAR) 03/03/21 17:38 Urine pH 7.0 (5.0 - 8.0) 03/03/21 17:38 Ur Specific Platter 1.010 (1.000-1.030) 03/03/21 17:38 Urine Protein 2+ (NEGATIVE) 03/03/21 17:38 Urine Glucose (UA) 3+ (NEGATIVE) 03/03/21 17:38 Urine Ketones 1+ (NEGATIVE) 03/03/21 17:38 Urine Occult Blood 1+ (NEGATIVE) 03/03/21 17:38 Urine Nitrite Negative (NEGATIVE) 03/03/21 17:38 Urine Bilirubin Negative (NEGATIVE) 03/03/21 17:38 Urine Urobilinogen Normal (NORMAL) 03/03/21 17:38 Ur Leukocyte Esterase Negative (NEGATIVE) 03/03/21 17:38 Urine RBC 3-5 /HPF (0-3) A 03/03/21 17:38 Urine WBC 0-2 /HPF (0-5) 03/03/21 17:38 Ur Squamous Epith Cells Rare /HPF (NEGATIVE) 03/03/21 17:38 Ur Transition Epith Cell Rare /HPF (NEGATIVE) 03/03/21 12:10 Amorphous Sediment Trace /HPF (NEGATIVE) 03/03/21 17:38 Urine Bacteria Negative /HPF (NEGATIVE) 03/03/21 17:38 Urine Mucus Rare /HPF (NEGATIVE) 03/03/21 12:10 Ur Culture Indicated? No/not indicated 03/03/21 17:38 Acetone, Semi-Quant Negative (NEGATIVE) 03/03/21 10:45 Influenza Type A Ag Negative-presumptive (NEGATIVE) 03/03/21 10:50 Influenza Type B Ag Negative-presumptive (NEGATIVE) 03/03/21 10:50 SARS CoV-2 RNA Rapid SKYE Negative (NEGATIVE) 03/03/21 10:50 - Plan (1) Vertigo Status: Acute Plan: NORMAL SALINE AT 50 ML/HR, INVANZ 1G IV HS, MECLIZINE 25MG PO TID, PEPCID 20MG IV BID, LOVENOX 40MG SC DAILY, MORPHINE SULFATE 2MG IV Q4H PRN, ZOFRAN 4MG IV Q6H PRN, PROMETHAZINE 12.5MG IM Q6H PRN, TORADOL 15MG IV Q8H, CLARITIN D 1 TABLET DAILY, AND SINGULAIR 10MG HS. RESUME HOME MEDS (2) Gastritis Status: Acute Qualifiers: Gastritis type: unspecified gastritis Chronicity: acute Gastritis bleeding: presence of bleeding unspecified Qualified Code(s): K29.00 - Acute gastritis without bleeding (3) Bladder outlet obstruction Status: Acute (4) Abdominal pain Status: Acute Qualifiers: Abdominal location: generalized Qualified Code(s): R10.84 - Generalized abdominal pain (5) Nausea and vomiting Status: Acute Qualifiers: Vomiting type: unspecified Qualified Code(s): R11.2 - Nausea with vomiting, unspecified (6) Diarrhea Status: Acute Qualifiers: Diarrhea type: unspecified type Qualified Code(s): R19.7 - Diarrhea, unsp ecified (7) Generalized weakness Status: Acute
[2021-03-07] MEDS ORDERED: NORVASC TAB 5 MG PO ONE (16:57)
[2021-03-07] MEDS: SNACK - Diabetic Appropriate PO SCH (20:15)
[2021-03-07] MEDS: INVANZ INJ 1 GM VIAL 1 GM in NS 100 ML IV + SPIKE MINIBAG* 100 ML IV SCH (20:44)
[2021-03-07] MEDS: REQUIP PO SCH (20:45)
[2021-03-07] MEDS: SINGULAIR TAB 10 MG PO SCH (20:45)
[2021-03-08] MEDS: TORADOL 15 MG VIAL IVP SCH ×3 (01:30→17:29)
[2021-03-08] MEDS: ANTIVERT TAB 25 MG PO SCH ×3 (05:50→21:33)
[2021-03-08] MEDS: NS 1,000 ML IV 1,000 ML IV SCH ×2 (05:51→12:11)
[2021-03-08 05:52] LABS: BASOPHILS # (AUTO) 0.1 X10^3/uL (0.0-0.1); EOSINOPHILS # (AUTO) 0.3 x10^3/uL (0.0-0.2); EOSINOPHILS % (AUTO) 4.3 % (0.9-2.9); HEMOGLOBIN 10.1 g/dL (12.0-16.0); LYMPHOCYTES % (AUTO) 14.5 % (21.0-51.0); MEAN CORPUSCULAR HEMOGLOBIN 30.7 pg (27.0-34.0); MEAN CORPUSCULAR HGB CONC 34.9 g/dL (33.0-35.0); MEAN CORPUSCULAR VOLUME 87.9 fL (80.0-100.0); MEAN PLATELET VOLUME 8.2 fL (7.4-11.0); MONOCYTES # (AUTO) 0.5 x10^3/uL (0.3-0.8); MONOCYTES % (AUTO) 7.5 % (0.0-13.0); NEUTROPHILS # (AUTO) 5.1 x10^3/uL (2.2-4.8); NEUTROPHILS % (AUTO) 72.7 % (42.0-75.0); PLATELET COUNT 202 X10^3/uL (150.0-450.0); RED CELL DISTRIBUTION WIDTH 13.9 % (11.6-16.5)
[2021-03-08 06:31] LABS: ALANINE AMINOTRANSFERASE 18 Units/L (12-78); ALBUMIN 2.5 g/dL (3.4-5.0); ALKALINE PHOSPHATASE 88 Units/L (46-116); ASPARTATE AMINO TRANSFERASE 13 Units/L (15-37); BLOOD UREA NITROGEN 11 mg/dL (7-18); CALCIUM 8.2 mg/dL (8.5-10.1); CARBON DIOXIDE 26.1 mmol/L (21-32); CHLORIDE 102 mmol/L (98-107); COR CA(FOR HYPOALB) 9.4 mg/dL (8.5-10.1); COR NA(FOR HYPERGLY) 138 mmol/L (136-145); SODIUM 137 mmol/L (136-145); TOTAL PROTEIN 5.7 g/dL (6.4-8.2); eGFR NON BLACK RACES 57 (>60)
[2021-03-08] MEDS ORDERED: GLUCOPHAGE ONE ×2 (08:15→20:30)
[2021-03-08] MEDS: CLARITIN-D 12 HOUR TAB PO SCH (08:57)
[2021-03-08] MEDS: VOLTAREN 1 % GEL MULTI DOSE TUBE TOP SCH ×2 (08:58→21:33)
[2021-03-08] MEDS: MICRO K EXTEN CAP 10 MEQ PO SCH (08:59)
[2021-03-08] MEDS: LOVENOX INJ 40 MG SYR SC SCH (08:59)
[2021-03-08] MEDS: PEPCID TAB 20 MG PO SCH (08:59)
[2021-03-08] MEDS: APRESOLINE TAB 25 MG PO SCH ×2 (08:59→21:32)
[2021-03-08] MEDS: PROTONIX TAB 40 MG PO SCH ×2 (09:00→21:32)
[2021-03-08] MEDS: HEMOCYTE-PLUS PO SCH (09:00)
[2021-03-08] MEDS: LIPITOR TAB 80 MG PO SCH (09:00)
[2021-03-08] MEDS: NORVASC TAB 10 MG PO SCH (09:00)
[2021-03-08] MEDS: GLUCOPHAGE PO SCH ×2 (09:00→21:31)
--- NOTE | 2021-03-08 10:51 | PCM.PROG ---
Progress Note - Progress Note for Day of Date of Exam: 03/08/21 - Subjective Subjective: IS BEING TREATED FOR VERTIGO, GASTRITIS, BLADDER OUTLET OBSTRUCTION, ABDOMINAL PAIN. TODAY, SHE IS ALERT AND ORIENTED, LYING IN BED ON MORNING ROUNDS. SHE CONTINUES WITH COMPLAINTS OF WEAKNESS AND DIZZINESS AT TIMES. PATIENT REPORTS THAT DIZZINESS HAS IMPROVED SINCE CANALITH REPOSITIONING YESTERDAY. SHE DENIES NAUSEA OR HEADACHE THIS MORNING. ON EXAMINATION, HEART IS REGULAR IN RATE AND RHYTHM. BILATERAL LUNGS NOTED WITH DIMINISHED LUNG SOUNDS THROUGHOUT. ABDOMEN IS ROUND, SOFT, AND NON-TENDER. NORMAL BOWEL SOUNDS ARE NOTED IN ALL QUADRANTS. HER VITALS THIS MORNING ARE: 98.2-93-20-95%-180/77. LABS WERE OBTAINED. ABNORMAL LAB VALUES INCLUDE THE FOLLOWING: RBC 3.30, HGB 10.1, HCT 29.0, GLUCOSE 148, CALCIUM 8.2, AST 13, TOTAL PROTEIN 5.7, ALBUMIN 2.5. SHE IS CURRENTLY RECEIVING NORMAL SALINE AT 50 ML/HR, INVANZ 1G IV HS, MECLIZINE 25MG PO TID, PEPCID 20MG IV BID, LOVENOX 40MG SC DAILY, MORPHINE SULFATE 2MG IV Q4H PRN, ZOFRAN 4MG IV Q6H PRN, PROMETHAZINE 12.5MG IM Q6H PRN, TORADOL 15MG IV Q8H, CLARITIN D 1 TABLET DAILY, AND SINGULAIR 10MG HS. HER HOME MEDICATIONS WERE RESUMED. WE WILL HAVE PHYSICAL THERAPY CONTINUE TO WORK WITH PATIENT TODAY. SHE SHOULD BE OUT OF BED THREE TIMES A DAY. OTHERWISE, WE PLAN TO FOLLOW UP WITH AM LABS AND CONTINUE TO MONITOR. TIME SPENT ON CLINICAL ASSESSMENT, REVIEWING LABS AND IMAGING, DECISION MAKING, AND DOCUMENTATION GREATER THAN 45 MINUTES. - Past Medical Family Social History Past Med/Fam/Surg Hx: No changes since H&P Allergies: Allergies Penicillins Allergy (Verified 02/15/21 09:43) Sulfa (Sulfonamide Antibiotics) [SULFA] Allergy (Verified 02/15/21 09:43) - Review of Systems ROS: No change since H&P - Vital Signs and I&O's Vital Signs: Temperature 98.2 F Pulse Rate [Right Brachial] 93 Pulse Rate [Left Radial] 90 Pulse Rate 86 Respiratory Rate 20 Blood Pressure [Right Arm] 180/77 Blood Pressure [Left Arm] 133/63 Blood Pressure 175/84 O2 Sat by Pulse Oximetry 95 Intake and Output: Intake & Output 03/05/21 03/06/21 03/07/21 03/08/21 11:59 11:59 11:59 11:59 Intake Total 2588 / 2588 1698 / 1698 2086 / 2086 1534 / 1534 Output Total 2400 / 2400 1725 / 1725 650 / 650 1600 / 1600 Balance 188 / 188 -27 / -27 1436 / 1436 -66 / -66 - Physical Exam Oriented: Normal Eyes: Normal Ear: Right (FLUID BUILD UP MIDDLE EAR) Nose: Normal Throat: Normal Respiratory: Generalized, Diminished Cardiovascular: Normal : Normal Auscultation: Bowel Sounds: Normal Palpation: Normal Tenderness: Normal Skin: Normal Musculoskeletal: Normal Psychiatric: Normal Mood Description: Calm Affect: Normal Speech Pattern: Clear, Appropriate - Laboratory and Diagnostics Result Diagrams: 03/08/21 05:17 03/08/21 05:17 Labs: Laboratory WBC 7.0 X10^3/uL (3.6-10.0) 03/08/21 05:17 RBC 3.30 X10^6/uL (3.5-5.4) L 03/08/21 05:17 Hgb 10.1 g/dL (12.0-16.0) L 03/08/21 05:17 Hct 29.0 % (36.0-47.0) L 03/08/21 05:17 MCV 87.9 fL (80.0-100.0) 03/08/21 05:17 MCH 30.7 pg (27.0-34.0) 03/08/21 05:17 MCHC 34.9 g/dL (33.0-35.0) 03/08/21 05:17 RDW 13.9 % (11.6-16.5) 03/08/21 05:17 Plt Count 202 X10^3/uL (150.0-450.0) 03/08/21 05:17 Plt Count Comment Adequate (ADEQUATE) 03/03/21 10:45 MPV 8.2 fL (7.4-11.0) 03/08/21 05:17 Neut % (Auto) 72.7 % (42.0-75.0) 03/08/21 05:17 Lymph % (Auto) 14.5 % (21.0-51.0) L 03/08/21 05:17 [place] % (Auto) 7.5 % (0.0-13.0) 03/08/21 05:17 Eos % (Auto) 4.3 % (0.9-2.9) H 03/08/21 05:17 Baso % (Auto) 1.0 % (0.2-1.0) 03/08/21 05:17 Neut # (Auto) 5.1 x10^3/uL (2.2-4.8) H 03/08/21 05:17 Lymph # (Auto) 1.0 X10^3/uL (1.3-2.9) L 03/08/21 05:17 [place] # (Auto) 0.5 x10^3/uL (0.3-0.8) 03/08/21 05:17 Eos # (Auto) 0.3 x10^3/uL (0.0-0.2) H 03/08/21 05:17 Baso # (Auto) 0.1 X10^3/uL (0.0-0.1) 03/08/21 05:17 Absolute Nucleated RBC 0.1 /100WBC 03/08/21 05:17 Total Counted 100 03/03/21 10:45 Neutrophils % (Manual) 93 % (39-76) H 03/03/21 10:45 Band Neutrophils % 1 % (0-10) 03/03/21 10:45 Lymphocytes % (Manual) 5 % (13-43) L 03/03/21 10:45 Eosinophils % (Manual) 1 % (0-6) 03/03/21 10:45 Plt Morphology Comment Normal (NORMAL) 03/03/21 10:45 RBC Morphology Normal (NORMAL) 03/03/21 10:45 Sodium 137 mmol/L (136-145) 03/08/21 05:17 Corrected Sodium 138 mmol/L (136-145) 03/08/21 05:17 Potassium 4.2 mmol/L (3.5-5.1) 03/08/21 05:17 Chloride 102 mmol/L (98-107) 03/08/21 05:17 Carbon Dioxide 26.1 mmol/L (21-32) 03/08/21 05:17 BUN 11 mg/dL (7-18) 03/08/21 05:17 Creatinine 1.00 mg/dL (0.55-1.02) 03/08/21 05:17 Est GFR (MDRD) Af Amer > 60 (>60) 03/08/21 05:17 Est GFR (MDRD) Non-Af 57 (>60) L 03/08/21 05:17 Glucose 148 mg/dL (65-99) H 03/08/21 05:17 POC Glucose (mg/dL) 138 mg/dL (65-99) H 03/08/21 06:04 Calcium 8.2 mg/dL (8.5-10.1) L 03/08/21 05:17 Corrected Calcium 9.4 mg/dL (8.5-10.1) 03/08/21 05:17 Total Bilirubin 0.40 mg/dL (0.2-1.0) 03/08/21 05:17 AST 13 Units/L (15-37) L 03/08/21 05:17 ALT 18 Units/L (12-78) 03/08/21 05:17 Alkaline Phosphatase 88 Units/L (46-116) 03/08/21 05:17 Creatine Kinase 66 Units/L (26-192) 03/03/21 18:59 CK-MB (CK-2) 1.0 ng/mL (0-4.0) 03/03/21 18:59 CK/CKMB % Calc 1.5 % (<4) 03/03/21 18:59 Troponin I < 0.02 ng/mL (0-1.5) 03/03/21 18:59 Total Protein 5.7 g/dL (6.4-8.2) L 03/08/21 05:17 Albumin 2.5 g/dL (3.4-5.0) L 03/08/21 05:17 Globulin 3.2 g/dL (2.5-4.5) 03/08/21 05:17 Albumin/Globulin Ratio 0.8 Ratio (1.1-2.1) L 03/08/21 05:17 Amylase 16 Units/L (25-115) L 03/05/21 05:55 Lipase 40 Units/L (73-393) L 03/05/21 05:55 Specimen Type Catherized urine 03/03/21 17:38 Urine Color Yellow (YELLOW) 03/03/21 17:38 Urine Appearance Hazy (CLEAR) 03/03/21 17:38 Urine pH 7.0 (5.0 - 8.0) 03/03/21 17:38 Ur Specific [place] 1.010 (1.000-1.030) 03/03/21 17:38 Urine Protein 2+ (NEGATIVE) 03/03/21 17:38 Urine Glucose (UA) 3+ (NEGATIVE) 03/03/21 17:38 Urine Ketones 1+ (NEGATIVE) 03/03/21 17:38 Urine Occult Blood 1+ (NEGATIVE) 03/03/21 17:38 Urine Nitrite Negative (NEGATIVE) 03/03/21 17:38 Urine Bilirubin Negative (NEGATIVE) 03/03/21 17:38 Urine Urobilinogen Normal (NORMAL) 03/03/21 17:38 Ur Leukocyte Esterase Negative (NEGATIVE) 03/03/21 17:38 Urine RBC 3-5 /HPF (0-3) A 03/03/21 17:38 Urine WBC 0-2 /HPF (0-5) 03/03/21 17:38 Ur Squamous Epith Cells Rare /HPF (NEGATIVE) 03/03/21 17:38 Ur Transition Epith Cell Rare /HPF (NEGATIVE) 03/03/21 12:10 Amorphous Sediment Trace /HPF (NEGATIVE) 03/03/21 17:38 Urine Bacteria Negative /HPF (NEGATIVE) 03/03/21 17:38 Urine Mucus Rare /HPF (NEGATIVE) 03/03/21 12:10 Ur Culture Indicated? No/not indicated 03/03/21 17:38 Acetone, Semi-Quant Negative (NEGATIVE) 03/03/21 10:45 Influenza Type A Ag Negative-presumptive (NEGATIVE) 03/03/21 10:50 Influenza Type B Ag Negative-presumptive (NEGATIVE) 03/03/21 10:50 SARS CoV-2 RNA Rapid SKYE Negative (NEGATIVE) 03/03/21 10:50 - Plan (1) Vertigo Status: Acute Plan: NORMAL SALINE AT 50 ML/HR, INVANZ 1G IV HS, MECLIZINE 25MG PO TID, PEPCID 20MG IV BID, LOVENOX 40MG SC DAILY, MORPHINE SULFATE 2MG IV Q4H PRN, ZOFRAN 4MG IV Q6H PRN, PROMETHAZINE 12.5MG IM Q6H PRN, TORADOL 15MG IV Q8H, CLARITIN D 1 TABLET DAILY, AND SINGULAIR 10MG HS. RESUME HOME MEDS (2) Gastritis Status: Acute Qualifiers: Gastritis type: unspecified gastritis Chronicity: acute Gastritis bleeding: presence of bleeding unspecified Qualified Code(s): K29.00 - Acute gastritis without bleeding (3) Bladder outlet obstruction Status: Acute (4) Abdominal pain Status: Acute Qualifiers: Abdominal location: generalized Qualified Code(s): R10.84 - Generalized abdominal pain (5) Nausea and vomiting Status: Acute Qualifiers: Vomiting type: unspecified Qualified Code(s): R11.2 - Nausea with vomiting, unspecified (6) Diarrhea Status: Acute Qualifiers: Diarrhea type: unspecified type Qualified Code(s): R19.7 - Diarrhea, unspecified (7) Generalized weakness Status: Acute
[2021-03-08] MEDS: NovoLIN R (or HumuLIN R) SUBCUT PRN ×2 (11:09→16:01)
[2021-03-08] MEDS: SNACK - Diabetic Appropriate PO SCH (20:00)
[2021-03-08] MEDS ORDERED: COZAAR PO SCH (21:00)
[2021-03-08] MEDS: INVANZ INJ 1 GM VIAL 1 GM in NS 100 ML IV + SPIKE MINIBAG* 100 ML IV SCH (21:32)
[2021-03-08] MEDS: REQUIP PO SCH (21:32)
[2021-03-08] MEDS: SINGULAIR TAB 10 MG PO SCH (21:32)
[2021-03-09] MEDS: NS 1,000 ML IV 1,000 ML IV SCH (04:49)
[2021-03-09] MEDS: TORADOL 15 MG VIAL IVP SCH ×2 (04:49→11:01)
[2021-03-09 06:08] LABS: BASOPHILS # (AUTO) 0.1 X10^3/uL (0.0-0.1); BASOPHILS % (AUTO) 1.1 % (0.2-1.0); EOSINOPHILS # (AUTO) 0.3 x10^3/uL (0.0-0.2); EOSINOPHILS % (AUTO) 5.1 % (0.9-2.9); HEMATOCRIT 30.9 % (36.0-47.0); HEMOGLOBIN 10.8 g/dL (12.0-16.0); LYMPHOCYTES % (AUTO) 15.8 % (21.0-51.0); MEAN CORPUSCULAR HEMOGLOBIN 30.4 pg (27.0-34.0); MEAN CORPUSCULAR HGB CONC 34.9 g/dL (33.0-35.0); MONOCYTES # (AUTO) 0.5 x10^3/uL (0.3-0.8); MONOCYTES % (AUTO) 7.3 % (0.0-13.0); NEUTROPHILS # (AUTO) 4.6 x10^3/uL (2.2-4.8); NEUTROPHILS % (AUTO) 70.7 % (42.0-75.0); PLATELET COUNT 267 X10^3/uL (150.0-450.0); RED BLOOD COUNT 3.55 X10^6/uL (3.5-5.4); RED CELL DISTRIBUTION WIDTH 14.3 % (11.6-16.5); WHITE BLOOD COUNT 6.5 X10^3/uL (3.6-10.0)
[2021-03-09] MEDS: ANTIVERT TAB 25 MG PO SCH (06:08)
[2021-03-09 06:22] LABS: ALANINE AMINOTRANSFERASE 18 Units/L (12-78); ALBUMIN 2.7 g/dL (3.4-5.0); ALKALINE PHOSPHATASE 95 Units/L (46-116); ASPARTATE AMINO TRANSFERASE 15 Units/L (15-37); BLOOD UREA NITROGEN 9 mg/dL (7-18); CALCIUM 8.5 mg/dL (8.5-10.1); CARBON DIOXIDE 25.3 mmol/L (21-32); CHLORIDE 103 mmol/L (98-107); COR CA(FOR HYPOALB) 9.5 mg/dL (8.5-10.1); COR NA(FOR HYPERGLY) 138 mmol/L (136-145); CREATININE 1.07 mg/dL (0.55-1.02); SODIUM 137 mmol/L (136-145); TOTAL PROTEIN 6.2 g/dL (6.4-8.2); eGFR NON BLACK RACES 53 (>60)
[2021-03-09] MEDS ORDERED: GLUCOPHAGE ONE (08:52)
[2021-03-09] MEDS: APRESOLINE TAB 25 MG PO SCH (08:54)
[2021-03-09] MEDS: GLUCOPHAGE PO SCH (08:55)
[2021-03-09] MEDS: HEMOCYTE-PLUS PO SCH (08:57)
[2021-03-09] MEDS: LIPITOR TAB 80 MG PO SCH (08:57)
[2021-03-09] MEDS: MICRO K EXTEN CAP 10 MEQ PO SCH (08:58)
[2021-03-09] MEDS: PEPCID TAB 20 MG PO SCH (08:58)
[2021-03-09] MEDS: NORVASC TAB 10 MG PO SCH (08:58)
[2021-03-09] MEDS: PROTONIX TAB 40 MG PO SCH (08:58)
[2021-03-09] MEDS: VOLTAREN 1 % GEL MULTI DOSE TUBE TOP SCH (08:59)
[2021-03-09] MEDS: LOVENOX INJ 40 MG SYR SC SCH (08:59)
[2021-03-09] MEDS: CLARITIN-D 12 HOUR TAB PO SCH (09:09)
[2021-03-09 14:50] VITALS: BP 178/79
== END 2021-03-09 14:35 | disposition home or self-care (01) ==
LOC: ER 09:26 → MED/SURG 09:26
PROVIDERS: ADMIT Internal Medicine; ATTEND Internal Medicine
DX: E78.5 Hyperlipidemia, unspecified; N32.0 Bladder-neck obstruction; H92.01 Otalgia, right ear; F03.90 Unspecified dementia, unspecified severity, without behavioral disturbance, psychotic disturbance, mood disturbance, and anxiety; R53.1 Weakness; R42 Dizziness and giddiness; R51.9 Headache, unspecified; R10.9 Unspecified abdominal pain; E11.9 Type 2 diabetes mellitus without complications; R82.998 Other abnormal findings in urine; I10 Essential (primary) hypertension; Z20.822 Contact with and (suspected) exposure to COVID-19; K29.70 Gastritis, unspecified, without bleeding; I25.10 Atherosclerotic heart disease of native coronary artery without angina pectoris; R26.9 Unspecified abnormalities of gait and mobility; R19.7 Diarrhea, unspecified

== ENCOUNTER 2022-03-25 21:01 | Observation (INO) ==
--- NOTE | 2022-03-25 21:22 | DR.NAUSEAF ---
HPI Time Seen Time Seen by Provider: 03/25/22 21:19 Primary Care Physician Primary Care Physician: KD HPI Comment HPI Comment: PATIENT IS 81 YR OLF FEMALE IN ER WITH BELOW HISTORY. Complaints Chief Complaint Doctors Comments: PATIENT IS 81YR OLD GEMALE IN ER VIA EMS FOR NAUSEA, VOMITING AND GENERALIZED WEAKNESS. TESTED POSITIVE FOR COVID 19 VIRUS THUSDAY. INCREASING SYMPTOMS REPORTED STARTED THEN. NO FEVER. SLIGHT COUGH AND CONGESTION PRESENT. HISTORY DM, CAD, HTN AND CHF. Chief Complaint:: PT IN ED VIA [facility] PER [facility] WITH C/O N/V SINCE SUNDAY. PT TESTED POSITIVE FOR ON SUNDAY. WAS SEEN HERE IN ER ON SUNDAY. Self Treatment fo Chief Complaint: PT GIVEN ZOFRAN 4MG IV PER EMS COVID-19 Coronavirus risk:travel/contact w/high risk person: Yes Has patient experienced Coronavirus symptoms: Yes Coronavirus symptoms experienced: Fever and Coughing Reviewed Nurses Notes Reviewed: Yes Source History Provided: Patient and EMS Mode of Arrival Mode of Arrival: Stretcher Timing Onset of Chief Complaint: 03/23/22 PMH PMH Past Medical History: Yes Past Medical History: Anemia, Arthritis, CHF, Coronary Artery Disease, Dementia, Diabetes, Dyslipidemia, GERD, Hypertension, Hypothyroidism, CT and Sleep Apnea Past Surgical History: Yes Surgical History: Angioplasty/Stents, Appendectomy, Cholecystectomy and Hysterectomy Family History History of Family Medical Conditions: No Family Medical History: Diabetes Mellitus, Cancer, CT, Coronary Artery Disease and Hypertension Social History Does patient currently use any type of tobacco product: No Have you used tobacco products in the last 12 months: No Type of Tobacco Use: None Does any household member use tobacco: No Alcohol Use: None Do you use any recreational Drugs:: No Lives With: Alone Lives Where: Home Travel Risk Coronavirus risk:travel/contact w/high risk person: Yes Has patient experienced Coronavirus symptoms: Yes Coronavirus symptoms experienced: Fever and Coughing Infectious screening In the last 2 months have you had wt loss of >10#?: NO Have you had fever, night sweats or hemotysis?: No Have you traveled outside the country in the last 6 months?: No Isolation: Droplet ROS Review of Systems Constitutional: Weakness, Fatigue and Loss of Appetite Eyes: No Symptoms Reported ENTM: No Symptoms Reported and Nose Congestion; negative Nose Discharge Respiratoy: Short of Breath (ON EXERTION.); negative Moist Cough Cardiovascular: No Symptoms Reported; negative Chest Pain or Edema Gastrointestinal/Abdominal: Abdominal Pain, Nausea and Vomiting; negative Diarrhea Genitourinary: No Symptoms Reported; negative Dysuria Neurological: Headache and Weakness; negative Dizziness Musculoskeletal: No Symptoms Reported Integumentary: Dryness; negative Rash or Juandice Hematologic/Lymphatic: Easy Bruising; negative Swollen Glands Endocrine: negative Increased Thirst or Increased Urine Psychiatric: No Symptoms Reported All Other Systems: Reviewed and Negative PE Vital Signs Vitals: Temperature 99.1 F Pulse Rate 76 Respiratory Rate 18 Blood Pressure [Right Arm] 116/79 Blood Pressure [Left Arm] 189/87 Blood Pressure 195/86 O2 Sat by Pulse Oximetry 97 General Limitations: No Limitations General Appearance: Alert and In No Apparent Distress Head Head Exam: Normal Inspection Eyes Eye exam: Normal Appearance; negative Scleral Icterus or Conjunctival Injection ENT ENT Exam: Normal External Ear Exam; negative Normal Oropharynx or TM's Normal Bilaterally Neck Neck Exam: Normal Inspection and Trachea Midline; negative Tenderness Chest Chest Inspection: Normal Inspection and Symmetric Chest Wall Rise; negative Tenderness Respiratory Respiratory Exam: Normal Lung Sounds Bilat; negative Accessory Muscle Use, Chest Wall Tenderness or Respiratory Distress Respiratory Exam: Bilateral: Rhonchi Cardiovascular Cardiovascular Exam: Regular Rate, Normal Rhythm and Normal Heart Sounds; negative Systolic Murmur or Diastolic Murmur Abdominal Exam Abdominal Exam: Normal Bowel Sounds and Soft; negative Tenderness Rectal Rectal Exam: Deferred External Exam: Female: Deferred : Speculum Exam (Female): Deferred : Bimanual Exam (female): Deferred Extremities Extremities Exam: Normal Capillary Refill Back Back Exam: Normal Inspection; negative (R) CVA Tenderness or (L) CVA Tenderness Neurologic Neurological Exam: Alert and Oriented X3 Psychiatric Psychiatric Exam: Normal Affect and Normal Mood Skin Skin Exam: Dry MDM Differential Diagnosis Differential Diagnosis: Considerations may Include:: Inflammatory BD, Urinary Tract Infection, Urolithiasis and Other (NAUSEA AND VOMITING, GENERALIZED WEAKNESS.) COURSE Treatment Treatment: SEE ORDERS DONE WHILE PATIENT WAS IN ER. Consultation Consultation Comments: DISCUSSED PATIENT WITH DR. VILLAR. HE WILL ADMIT PATIENT. ROR Labs Reviewed Laboratory Results Reviewed?: Yes Result Diagrams: 03/27/22 05:21 03/27/22 05:21 Laboratory: WBC 3.6 X10^3/uL (3.6-10.0) 03/25/22 21:45 RBC 4.00 X10^6/uL (3.5-5.4) 03/25/22 21:45 Hgb 11.9 g/dL (12.0-16.0) L 03/25/22 21:45 Hct 33.9 % (36.0-47.0) L 03/25/22 21:45 MCV 84.6 fL (80.0-100.0) 03/25/22 21:45 MCH 29.7 pg (27.0-34.0) 03/25/22 21:45 MCHC 35.2 g/dL (33.0-35.0) H 03/25/22 21:45 RDW 14.4 % (11.6-16.5) 03/25/22 21:45 Plt Count 215 X10^3/uL (150.0-450.0) 03/25/22 21:45 MPV 8.3 fL (7.4-11.0) 03/25/22 21:45 Neut % (Auto) 68.9 % (42.0-75.0) 03/25/22 21:45 Lymph % (Auto) 22.4 % (21.0-51.0) 03/25/22 21:45 [place] % (Auto) 8.1 % (0.0-13.0) 03/25/22 21:45 Eos % (Auto) 0.1 % (0.9-2.9) L 03/25/22 21:45 Baso % (Auto) 0.5 % (0.2-1.0) 03/25/22 21:45 Neut # (Auto) 2.5 x10^3/uL (2.2-4.8) 03/25/22 21:45 Lymph # (Auto) 0.8 X10^3/uL (1.3-2.9) L 03/25/22 21:45 [place] # (Auto) 0.3 x10^3/uL (0.3-0.8) 03/25/22 21:45 Eos # (Auto) 0.0 x10^3/uL (0.0-0.2) 03/25/22 21:45 Baso # (Auto) 0.0 X10^3/uL (0.0-0.1) 03/25/22 21:45 Absolute Nucleated RBC 0.1 /100WBC 03/25/22 21:45 D-Dimer 0.29 ug/ml (0.0-0.57) 03/25/22 21:45 Sodium 127 mmol/L (136-145) L 03/25/22 21:45 Corrected Sodium 128 mmol/L (136-145) L 03/25/22 21:45 Potassium 3.7 mmol/L (3.5-5.1) 03/25/22 21:45 Chloride 89 mmol/L (98-107) L 03/25/22 21:45 Carbon Dioxide 30.7 mmol/L (21-32) 03/25/22 21:45 BUN 15 mg/dL (7-18) 03/25/22 21:45 Creatinine 1.37 mg/dL (0.55-1.02) H 03/25/22 21:45 Est GFR (MDRD) Af Amer 48 (>60) L 03/25/22 21:45 Est GFR (MDRD) Non-Af 40 (>60) L 03/25/22 21:45 Glucose 156 mg/dL (65-99) H 03/25/22 21:45 Calcium 8.3 mg/dL (8.5-10.1) L 03/25/22 21:45 Corrected Calcium TNP 03/25/22 21:45 Total Bilirubin 0.40 mg/dL (0.2-1.0) 03/25/22 21:45 AST 20 Units/L (15-37) 03/25/22 21:45 ALT 22 Units/L (12-78) 03/25/22 21:45 Alkaline Phosphatase 96 Units/L (46-116) 03/25/22 21:45 Creatine Kinase 56 Units/L (26-192) 03/25/22 21:45 Troponin I High Sens 9.0 ng/L (4.0-60.0) 03/25/22 21:45 B-Natriuretic Peptide 15.9 pg/mL (0-79) 03/25/22 21:45 Total Protein 6.5 g/dL (6.4-8.2) 03/25/22 21:45 Albumin 3.4 g/dL (3.4-5.0) 03/25/22 21:45 Globulin 3.1 g/dL (2.5-4.5) 03/25/22 21:45 Albumin/Globulin Ratio 1.1 Ratio (1.1-2.1) 03/25/22 21:45 XRAY XRAY Interpreted by: Radiologist (REPORT NOTED.) and Self EKG Rate: 72 [place]: Normal Rhythm: NSR Block: None Hypertrophy: None ST: Normal Opioid Opioid Risk Tool Age (Good box if 16-45): No History of Preadolescent Sexual Abuse: No Total: 0 Total Score Risk Category: Low Risk Copyright: Bakari DUNLAP predicting aberrant behaviors Discharge Plan Diagnosis Discharge Problem: Acute hyponatremia, COVID-19 virus infection, Generalized weakness Discharge Plan Patient Disposition: ADMITTED INPATIENT Condition: Stable
[2022-03-25 22:03] LABS: HEMOGLOBIN 11.9 g/dL (12.0-16.0); WHITE BLOOD COUNT 3.6 X10^3/uL (3.6-10.0)
[2022-03-25 22:06] LABS: BASOPHILS % (AUTO) 0.5 % (0.2-1.0); EOSINOPHILS % (AUTO) 0.1 % (0.9-2.9); HEMATOCRIT 33.9 % (36.0-47.0); LYMPHOCYTES # (AUTO) 0.8 X10^3/uL (1.3-2.9); LYMPHOCYTES % (AUTO) 22.4 % (21.0-51.0); MEAN CORPUSCULAR HEMOGLOBIN 29.7 pg (27.0-34.0); MEAN CORPUSCULAR HGB CONC 35.2 g/dL (33.0-35.0); MEAN CORPUSCULAR VOLUME 84.6 fL (80.0-100.0); MEAN PLATELET VOLUME 8.3 fL (7.4-11.0); MONOCYTES # (AUTO) 0.3 x10^3/uL (0.3-0.8); MONOCYTES % (AUTO) 8.1 % (0.0-13.0); NEUTROPHILS # (AUTO) 2.5 x10^3/uL (2.2-4.8); NEUTROPHILS % (AUTO) 68.9 % (42.0-75.0); RED CELL DISTRIBUTION WIDTH 14.4 % (11.6-16.5)
[2022-03-25 22:11] LABS: ALANINE AMINOTRANSFERASE 22 Units/L (12-78); ALBUMIN 3.4 g/dL (3.4-5.0); ALKALINE PHOSPHATASE 96 Units/L (46-116); ASPARTATE AMINO TRANSFERASE 20 Units/L (15-37); BLOOD UREA NITROGEN 15 mg/dL (7-18); CALCIUM 8.3 mg/dL (8.5-10.1); CARBON DIOXIDE 30.7 mmol/L (21-32); CHLORIDE 89 mmol/L (98-107); COR NA(FOR HYPERGLY) 128 mmol/L (136-145); CREATININE 1.37 mg/dL (0.55-1.02); SODIUM 127 mmol/L (136-145); TOTAL PROTEIN 6.5 g/dL (6.4-8.2); eGFR NON BLACK RACES 40 (>60)
--- NOTE | 2022-03-25 22:26 | EKG ---
Test Reason : CHEST PAIN Blood Pressure : */* mmHG Vent. Rate : 72 BPM Atrial Rate : 72 BPM P-R Int : 176 ms QRS Dur : 82 ms QT Int : 412 ms P-R-T Axes : 42 -26 37 degrees QTc Int : 451 ms Normal sinus rhythm Normal ECG No previous ECGs available Confirmed by Zaid Hawley ([id number]) on 03/28/2022 10:29:29 AM Referred By: Confirmed By: Zaid Hawley
--- NOTE | 2022-03-26 01:08 | RAD ---
HISTORYCHEST PAIN, COVID +STUDYCHEST, 1 VIEWCOMPARISONNone.TECHNIQUEA single frontal view of the chest was obtained.FINDINGSThere is mild cardiomegaly with left ventricular hypertrophy. There is no focal infiltrate. There is no effusion. There is no pneumothorax. The osseous structures are intact.IMPRESSIONNo focal infiltrate or effusion.Electronically signed by: Tayler Vazquez (Mar 26, 2022 01:05:47)
[2022-03-26] MEDS: NS 1,000 ML IV 1,000 ML IV SCH ×3 (01:25→17:23)
[2022-03-26 01:29] VITALS: BMI 28.8
[2022-03-26] MEDS ORDERED: ZOFRAN INJ 4 MG VIAL ONE (05:52)
[2022-03-26 06:00] LABS: BASOPHILS % (AUTO) 0.5 % (0.2-1.0); EOSINOPHILS % (AUTO) 0.1 % (0.9-2.9); HEMATOCRIT 33.6 % (36.0-47.0); HEMOGLOBIN 11.9 g/dL (12.0-16.0); LYMPHOCYTES # (AUTO) 0.8 X10^3/uL (1.3-2.9); LYMPHOCYTES % (AUTO) 22.2 % (21.0-51.0); MEAN CORPUSCULAR HGB CONC 35.4 g/dL (33.0-35.0); MEAN CORPUSCULAR VOLUME 84.6 fL (80.0-100.0); MEAN PLATELET VOLUME 8.7 fL (7.4-11.0); MONOCYTES # (AUTO) 0.3 x10^3/uL (0.3-0.8); MONOCYTES % (AUTO) 7.8 % (0.0-13.0); NEUTROPHILS # (AUTO) 2.5 x10^3/uL (2.2-4.8); NEUTROPHILS % (AUTO) 69.4 % (42.0-75.0); RED BLOOD COUNT 3.97 X10^6/uL (3.5-5.4); RED CELL DISTRIBUTION WIDTH 14.3 % (11.6-16.5); WHITE BLOOD COUNT 3.7 X10^3/uL (3.6-10.0)
[2022-03-26] MEDS: ZOFRAN INJ 4 MG VIAL IVP PRN (06:11)
[2022-03-26 06:14] LABS: ALBUMIN 3.2 g/dL (3.4-5.0); CALCIUM 8.1 mg/dL (8.5-10.1); CARBON DIOXIDE 29.5 mmol/L (21-32); COR CA(FOR HYPOALB) 8.7 mg/dL (8.5-10.1); CREATININE 1.29 mg/dL (0.55-1.02); MAGNESIUM 1.2 mg/dL (2.0-2.9); TOTAL PROTEIN 6.3 g/dL (6.4-8.2)
[2022-03-26] MEDS ORDERED: POTASSIUM CHL 40 MEQ/NS 0.45% 500 ML IV PRN (06:58)
[2022-03-26] MEDS ORDERED: POTASSIUM CHL 60 MEQ/NS 0.45% 500 ML IV PRN (06:58)
[2022-03-26] MEDS ORDERED: MICRO K EXTEN CAP 10 MEQ PO PRN (06:58)
[2022-03-26] MEDS ORDERED: KLOR-CON PO PRN (06:58)
[2022-03-26] MEDS ORDERED: K-RIDER 10 MEQ/NS 100 ML 10 MEQ/100 ML BAG IV PRN (06:58)
[2022-03-26] MEDS ORDERED: POTASSIUM CHLORIDE LIQ 20 MEQ UDC PO PRN (06:58)
[2022-03-26] MEDS ORDERED: K-DUR TAB 20 MEQ PO PRN (06:58)
[2022-03-26] MEDS: LEVAQUIN PREMIX IV 500 MG 500 MG/100 ML BAG IV SCH (09:17)
[2022-03-26] MEDS ORDERED: CATAPRES TAB 0.1 MG PO ONE (09:31)
[2022-03-26] MEDS: MAGNESIUM SULFATE 1 GRAM/100 mL PREMIX 1 G/100 ML BAG IV PRN ×4 (10:10→17:18)
[2022-03-26] MEDS ORDERED: APRESOLINE INJ 20 MG VIAL IVP PRN (11:27)
[2022-03-26] MEDS: K-DUR TAB 20 MEQ PO SCH (14:19)
[2022-03-26] MEDS: ASPIRIN EC 81 MG PO SCH (14:41)
[2022-03-26] MEDS: VITAMIN C PO SCH (14:42)
[2022-03-26] MEDS ORDERED: LEVSIN/MAALOX/LIDOC VISC PO PRN (15:07)
--- NOTE | 2022-03-26 15:17 | DR.H&P ---
H&P - History & Physical for Day of: H&P Date: 03/26/22 - Chief Complaint Chief Complaint: N/V/D, WEAKNESS, COVID 19+ - History of Present Illness History of Present Illness: PT IS 81WF, ER ADMISSION AFTER ARRIVING ED VIA [facility] WITH C/O N/V SINCE SUNDAY. PT TESTED POSITIVE FOR ON SUNDAY. WAS SEEN HERE IN ER ON SUNDAY. PT HAS PMH OF HTN, CHF, CAD, GERD, OA. - Past Medical History Past Medical History: NC, Coronary Artery Disease, Hypertension, Dyslipidemia, Diabetes, Dementia, Hypothyroidism, Anemia, GERD, Arthritis, Sleep Apnea, CHF - Past Surgical History Surgical History: Angioplasty/Stents, Appendectomy, Cholecystectomy, Hysterectomy - Family History Family Medical History: Diabetes Mellitus, Cancer, [place], Coronary Artery Disease, Hypertension - Social History Does patient currently use any type of tobacco product: No Have you used tobacco products in the last 12 months: No Type of Tobacco Use: None Does any household member use tobacco: No Alcohol Use: None Drug Use: None - Medications Home Medications: Penicillins Allergy (Verified 02/15/21 09:43) Sulfa (Sulfonamide Antibiotics) [SULFA] Allergy (Verified 02/15/21 09:43) CONTINUE taking the following medications ascorbic acid (vitamin C) 500 mg tablet (Vitamin C) 500 mg PO QDAY 03/26/22 [History] aspirin 81 mg tablet,delayed release 81 mg PO QDAY 03/26/22 [History] cholecalciferol (vitamin D3) 50 mcg (2,000 unit) capsule (Vitamin D3) 50 mcg PO QDAY 03/26/22 [History] levothyroxine 50 mcg tablet 50 mcg PO DAILY 03/26/22 [History] mecobalamin (vitamin B12) 1,000 mcg chewable tablet (B12 Active) 1,000 mcg PO QDAY 03/26/22 [History] metformin 500 mg tablet 1 tab PO BID 03/26/22 [History] pantoprazole 40 mg tablet,delayed release 40 mg PO DAILY 03/26/22 [History] potassium chloride 20 mEq tablet,extended release(part/cryst) 1 tab PO QDAY 03/26/22 [History] semaglutide 14 mg tablet (Rybelsus) 14 mg PO DAILY 03/26/22 [History] tramadol 50 mg tablet 1 tab PO TID PRN 03/26/22 [History] zinc 50 mg capsule 50 mg PO QDAY 03/26/22 [History] - Review of Systems Constitutional: Weakness Eyes: No Symptoms Reported ENT: Nose Congestion Respiratory: SOB with Excertion Cardiovascular: Edema Gastrointestinal: Nausea, Vomiting, Abdominal Pain Genitourinary: No Symptoms Reported Musculoskeletal: Back Pain Skin: No Symptoms Reported Neurological: Weakness - Physical Exam Vital Signs: Temperature 98.3 F Pulse Rate [Right] 74 Pulse Rate 76 Respiratory Rate 18 Blood Pressure [Right Arm] 167/81 Blood Pressure [Left Arm] 189/87 Blood Pressure 195/86 O2 Sat by Pulse Oximetry 99 Oriented: Normal Eyes: Normal Ear: Normal Nose: Normal Throat: Normal Respiratory: RLL Diminished, LLL Diminished Cardiovascular: Normal, Edema : Normal Auscultation: Bowel Sounds: Normal Palpation: Normal Tenderness: Epigastric, Mild Skin: Decreased Turgur Musculoskeletal: Back:Lumbar Psychiatric: Normal Mood Description: Calm Speech Pattern: Clear, Appropriate - Assessment/Plan (1) COVID-19 Status: Acute Plan: ADMIT, GENTLE IV HYDRATION, STRICT I&OS. RESP CONSULT CXR ON ADMISSION. PPI THERAPY, PAIN AND NAUSEA CONTROL (2) Dehydration Status: Acute (3) Diabetes mellitus, type 2 Qualifiers: Diabetes mellitus correction insulin use: unspecified assistant terminal manager insulin use status Diabetes mellitus complication status: with other specified complication Qualified Code(s): E11.69 - Type 2 diabetes mellitus with other specified complication Status: Acute (4) CHF (congestive heart failure) Status: Chronic (5) Hypertension Qualifiers: Hypertension type: primary hypertension Qualified Code(s): I10 - Essential (primary) hypertension Status: Acute (6) Gastritis Qualifiers: Gastritis type: unspecified gastritis Chronicity: acute Gastritis bleeding: presence of bleeding unspecified Qualified Code(s): K29.00 - Acute gastritis without bleeding Status: Acute - Allergies Allergies/Adverse Reactions: Allergies Allergy/AdvReac Type Severity Reaction Status Date / Time Penicillins Allergy Verified 02/15/21 09:43 Sulfa (Sulfonamide Allergy Verified 02/15/21 09:43 Antibiotics) [SULFA]
[2022-03-26] MEDS ORDERED: TYLENOL 325 MG TAB PO PRN (19:55)
[2022-03-26] MEDS: LIPITOR TAB 80 MG PO SCH (20:47)
[2022-03-26] MEDS: REQUIP PO SCH (20:47)
[2022-03-26] MEDS: SINGULAIR TAB 10 MG PO SCH (20:47)
[2022-03-26] MEDS: NovoLIN R (or HumuLIN R) SUBCUT PRN (20:52)
[2022-03-26] MEDS: SNACK - Diabetic Appropriate PO SCH (20:53)
[2022-03-27] MEDS: NS 1,000 ML IV 1,000 ML IV SCH ×3 (03:26→16:49)
[2022-03-27] MEDS: ZOFRAN INJ 4 MG VIAL IVP PRN (05:46)
[2022-03-27 06:37] LABS: BASOPHILS % (AUTO) 0.4 % (0.2-1.0); EOSINOPHILS % (AUTO) 0.3 % (0.9-2.9); HEMATOCRIT 34.5 % (36.0-47.0); LYMPHOCYTES # (AUTO) 1.2 X10^3/uL (1.3-2.9); LYMPHOCYTES % (AUTO) 26.8 % (21.0-51.0); MEAN CORPUSCULAR HEMOGLOBIN 29.7 pg (27.0-34.0); MEAN CORPUSCULAR VOLUME 85.1 fL (80.0-100.0); MEAN PLATELET VOLUME 8.7 fL (7.4-11.0); MONOCYTES # (AUTO) 0.4 x10^3/uL (0.3-0.8); MONOCYTES % (AUTO) 8.9 % (0.0-13.0); NEUTROPHILS # (AUTO) 2.8 x10^3/uL (2.2-4.8); NEUTROPHILS % (AUTO) 63.6 % (42.0-75.0); RED BLOOD COUNT 4.05 X10^6/uL (3.5-5.4); RED CELL DISTRIBUTION WIDTH 14.2 % (11.6-16.5); WHITE BLOOD COUNT 4.4 X10^3/uL (3.6-10.0)
[2022-03-27 06:51] LABS: ALANINE AMINOTRANSFERASE 19 Units/L (12-78); ALBUMIN 3.3 g/dL (3.4-5.0); ALKALINE PHOSPHATASE 76 Units/L (46-116); ASPARTATE AMINO TRANSFERASE 18 Units/L (15-37); BLOOD UREA NITROGEN 6 mg/dL (7-18); CARBON DIOXIDE 27.3 mmol/L (21-32); CHLORIDE 97 mmol/L (98-107); COR CA(FOR HYPOALB) 8.6 mg/dL (8.5-10.1); COR NA(FOR HYPERGLY) 134 mmol/L (136-145); CREATININE 1.05 mg/dL (0.55-1.02); MAGNESIUM 2.4 mg/dL (2.0-2.9); SODIUM 133 mmol/L (136-145); TOTAL PROTEIN 6.3 g/dL (6.4-8.2); eGFR NON BLACK RACES 54 (>60)
[2022-03-27] MEDS: PROTONIX TAB 40 MG PO SCH ×2 (09:06→20:28)
[2022-03-27] MEDS: LASIX PO SCH (09:06)
[2022-03-27] MEDS: ALDACTONE TAB 25 MG PO SCH (09:06)
[2022-03-27] MEDS: SYNTHROID 50 mcg TAB PO SCH (09:06)
[2022-03-27] MEDS: VITAMIN C PO SCH (09:06)
[2022-03-27] MEDS: ASPIRIN EC 81 MG PO SCH (09:07)
[2022-03-27] MEDS: K-DUR TAB 20 MEQ PO SCH (09:07)
[2022-03-27] MEDS: LOVENOX INJ 40 MG SYR SC SCH (12:06)
[2022-03-27] MEDS: NovoLIN R (or HumuLIN R) SUBCUT PRN ×3 (12:08→20:31)
[2022-03-27] MEDS: ROBITUSSIN DM PO PRN (12:09)
[2022-03-27] MEDS: LIPITOR TAB 80 MG PO SCH (20:29)
[2022-03-27] MEDS: SINGULAIR TAB 10 MG PO SCH (20:29)
[2022-03-27] MEDS: REQUIP PO SCH (20:29)
[2022-03-27] MEDS: SNACK - Diabetic Appropriate PO SCH (20:35)
--- NOTE | 2022-03-27 23:16 | RAD ---
HISTORYCOVIDSTUDYCHEST, 1 VIEWCOMPARISONDecember 2021TECHNIQUEChest radiographic imaging, AP portable projection, 1 imageFINDINGSNo cardiomegaly.No focal airspace disease.No pleural effusion.No pneumothorax.No acute osseous abnormality.IMPRESSIONNo imaging findings of acute cardiopulmonary disease.Electronically signed by: Reagan Jones (Mar 27, 2022 23:15:12)
[2022-03-28] MEDS: NS 1,000 ML IV 1,000 ML IV SCH ×2 (02:19→05:49)
[2022-03-28] MEDS: ROBITUSSIN DM PO PRN (04:24)
[2022-03-28 05:59] LABS: BASOPHILS % (AUTO) 0.5 % (0.2-1.0); EOSINOPHILS % (AUTO) 0.6 % (0.9-2.9); HEMATOCRIT 32.6 % (36.0-47.0); HEMOGLOBIN 11.5 g/dL (12.0-16.0); LYMPHOCYTES # (AUTO) 1.2 X10^3/uL (1.3-2.9); LYMPHOCYTES % (AUTO) 24.4 % (21.0-51.0); MEAN CORPUSCULAR HGB CONC 35.3 g/dL (33.0-35.0); MEAN PLATELET VOLUME 8.3 fL (7.4-11.0); MONOCYTES # (AUTO) 0.4 x10^3/uL (0.3-0.8); MONOCYTES % (AUTO) 7.7 % (0.0-13.0); NEUTROPHILS # (AUTO) 3.3 x10^3/uL (2.2-4.8); NEUTROPHILS % (AUTO) 66.8 % (42.0-75.0); RED BLOOD COUNT 3.84 X10^6/uL (3.5-5.4); RED CELL DISTRIBUTION WIDTH 14.5 % (11.6-16.5); WHITE BLOOD COUNT 4.9 X10^3/uL (3.6-10.0)
[2022-03-28 06:16] LABS: ALANINE AMINOTRANSFERASE 18 Units/L (12-78); ALBUMIN 3.2 g/dL (3.4-5.0); ALKALINE PHOSPHATASE 81 Units/L (46-116); ASPARTATE AMINO TRANSFERASE 14 Units/L (15-37); BLOOD UREA NITROGEN 9 mg/dL (7-18); CARBON DIOXIDE 25.2 mmol/L (21-32); CHLORIDE 101 mmol/L (98-107); COR CA(FOR HYPOALB) 8.6 mg/dL (8.5-10.1); COR NA(FOR HYPERGLY) 137 mmol/L (136-145); CREATININE 1.07 mg/dL (0.55-1.02); SODIUM 134 mmol/L (136-145); eGFR NON BLACK RACES 53 (>60)
[2022-03-28 08:14] VITALS: BP 160/90
--- NOTE | 2022-03-28 08:22 | PCM.PROG ---
Progress Note Progress Note for Day of Date of Exam: 03/27/22 Subjective Subjective: Pt is a 81 year old female admitted for COVID-19. This morning she is doing well, sitting on side of the bed. She reports still having some weakness and very minimal shortness of breath. Labs/imaging: Wbc 4.4, Hgb 12, Plt 211, Na 134, K 3.6, Creatinine 1.05, Glucose 121. Pt has been responding well to treatments. Will continue with current treatment plan. Order diet and restart home medications. Continue to closely monitor and follow up labs in the morning. Past Medical Family Social History Allergies: Allergies Penicillins Allergy (Verified 02/15/21 09:43) Sulfa (Sulfonamide Antibiotics) [SULFA] Allergy (Verified 02/15/21 09:43) Review of Systems ROS: No change since H&P Vital Signs and I&O's Vital Signs: Temperature 98.8 F Pulse Rate [Right] 77 Pulse Rate 78 Respiratory Rate 20 Blood Pressure [Right Arm] 160/90 Blood Pressure [Left Arm] 189/87 Blood Pressure 195/86 O2 Sat by Pulse Oximetry 98 Intake and Output: Intake & Output 03/25/22 03/26/22 03/27/22 03/28/22 23:59 23:59 23:59 23:59 Intake Total 2683 / 2683 2647 / 2887 920 / 920 Balance 2683 / 2683 2647 / 2887 920 / 920 Physical Exam Oriented: Normal Eyes: Normal Ear: Normal Nose: Normal Throat: Normal Respiratory: Normal Cardiovascular: Normal and Edema : Normal Auscultation: Bowel Sounds: Normal Tenderness: Epigastric and Mild Skin: Decreased Turgur Musculoskeletal: Back:Lumbar Psychiatric: Normal Mood Description: Calm Speech Pattern: Clear and Appropriate Laboratory and Diagnostics Result Diagrams: 03/28/22 05:22 03/28/22 05:22 Labs: Laboratory WBC 4.9 X10^3/uL (3.6-10.0) 03/28/22 05:22 RBC 3.84 X10^6/uL (3.5-5.4) 03/28/22 05:22 Hgb 11.5 g/dL (12.0-16.0) L 03/28/22 05:22 Hct 32.6 % (36.0-47.0) L 03/28/22 05:22 MCV 85.0 fL (80.0-100.0) 03/28/22 05:22 MCH 30.0 pg (27.0-34.0) 03/28/22 05:22 MCHC 35.3 g/dL (33.0-35.0) H 03/28/22 05:22 RDW 14.5 % (11.6-16.5) 03/28/22 05:22 Plt Count 192 X10^3/uL (150.0-450.0) 03/28/22 05:22 MPV 8.3 fL (7.4-11.0) 03/28/22 05:22 Neut % (Auto) 66.8 % (42.0-75.0) 03/28/22 05:22 Lymph % (Auto) 24.4 % (21.0-51.0) 03/28/22 05:22 [place] % (Auto) 7.7 % (0.0-13.0) 03/28/22 05:22 Eos % (Auto) 0.6 % (0.9-2.9) L 03/28/22 05:22 Baso % (Auto) 0.5 % (0.2-1.0) 03/28/22 05:22 Neut # (Auto) 3.3 x10^3/uL (2.2-4.8) 03/28/22 05:22 Lymph # (Auto) 1.2 X10^3/uL (1.3-2.9) L 03/28/22 05:22 [place] # (Auto) 0.4 x10^3/uL (0.3-0.8) 03/28/22 05:22 Eos # (Auto) 0.0 x10^3/uL (0.0-0.2) 03/28/22 05:22 Baso # (Auto) 0.0 X10^3/uL (0.0-0.1) 03/28/22 05:22 Absolute Nucleated RBC 0.1 /100WBC 03/28/22 05:22 D-Dimer 0.29 ug/ml (0.0-0.57) 03/25/22 21:45 Sodium 134 mmol/L (136-145) L 03/28/22 05:22 Corrected Sodium 137 mmol/L (136-145) 03/28/22 05:22 Potassium 4.3 mmol/L (3.5-5.1) 03/28/22 05:22 Chloride 101 mmol/L (98-107) 03/28/22 05:22 Carbon Dioxide 25.2 mmol/L (21-32) 03/28/22 05:22 BUN 9 mg/dL (7-18) 03/28/22 05:22 Creatinine 1.07 mg/dL (0.55-1.02) H 03/28/22 05:22 Est GFR (MDRD) Af Amer > 60 (>60) 03/28/22 05:22 Est GFR (MDRD) Non-Af 53 (>60) L 03/28/22 05:22 Glucose 215 mg/dL (65-99) H 03/28/22 05:22 POC Glucose (mg/dL) 206 mg/dL (65-99) H 03/28/22 05:40 Calcium 8.0 mg/dL (8.5-10.1) L 03/28/22 05:22 Corrected Calcium 8.6 mg/dL (8.5-10.1) 03/28/22 05:22 Magnesium 2.4 mg/dL (2.0-2.9) 03/27/22 05:21 Total Bilirubin 0.40 mg/dL (0.2-1.0) 03/28/22 05:22 AST 14 Units/L (15-37) L 03/28/22 05:22 ALT 18 Units/L (12-78) 03/28/22 05:22 Alkaline Phosphatase 81 Units/L (46-116) 03/28/22 05:22 Creatine Kinase 56 Units/L (26-192) 03/25/22 21:45 Troponin I High Sens 9.0 ng/L (4.0-60.0) 03/25/22 21:45 B-Natriuretic Peptide 15.9 pg/mL (0-79) 03/25/22 21:45 Total Protein 6.0 g/dL (6.4-8.2) L 03/28/22 05:22 Albumin 3.2 g/dL (3.4-5.0) L 03/28/22 05:22 Globulin 2.8 g/dL (2.5-4.5) 03/28/22 05:22 Albumin/Globulin Ratio 1.1 Ratio (1.1-2.1) 03/28/22 05:22 Plan (1) COVID-19: Status: Acute Plan: ADMIT, GENTLE IV HYDRATION, STRICT I&OS RESP CONSULT CXR ON ADMISSION PPI THERAPY, PAIN AND NAUSEA CONTROL (2) Dehydration: Status: Acute (3) Diabetes mellitus, type 2: Status: Acute Qualifiers: Diabetes mellitus complication status: with other specified complication Diabetes mellitus jail insulin use: unspecified jail insulin use status Qualified Code(s): E11.69 - Type 2 diabetes mellitus with other specified complication (4) CHF (congestive heart failure): Status: Chronic (5) Hypertension: Status: Acute Qualifiers: Hypertension type: primary hypertension Qualified Code(s): I10 - Essential (primary) hypertension (6) Gastritis: Status: Acute Qualifiers: Chronicity: acute Gastritis bleeding: presence of bleeding unspecified Gastritis type: unspecified gastritis Qualified Code(s): K29.00 - Acute gastritis without bleeding
--- NOTE | 2022-03-28 08:28 | PCM.DCPLAN ---
DISCHARGE SUMMARY Admission Date Date of Admission: 03/26/22 Discharge Date Discharge Date: 03/28/22 Admission Diagnoses (1) COVID-19: Status: Acute (2) Dehydration: Status: Acute (3) Diabetes mellitus, type 2: Status: Acute (4) CHF (congestive heart failure): Status: Chronic (5) Hypertension: Status: Acute (6) Gastritis: Status: Acute Discharge Diagnoses Discharge Diagnosis: 1. COVID-19 2. Dehydration resolved 3. Hyponatremia resolved 4. Diabetes mellitus type 2 stable 5. History of congestive heart failure 6. Hypertension stable 7. Gastritis resolved Discharge Medications Discharge Medications: Home Medication List ascorbic acid (vitamin C) 500 mg tablet (Vitamin C) 500 mg PO QDAY 03/26/22 [History] aspirin 81 mg tablet,delayed release 81 mg PO QDAY 03/26/22 [History] cholecalciferol (vitamin D3) 50 mcg (2,000 unit) capsule (Vitamin D3) 50 mcg PO QDAY 03/26/22 [History] levothyroxine 50 mcg tablet 50 mcg PO DAILY 03/26/22 [History] mecobalamin (vitamin B12) 1,000 mcg chewable tablet (B12 Active) 1,000 mcg PO QDAY 03/26/22 [History] metformin 500 mg tablet 1 tab PO BID 03/26/22 [History] pantoprazole 40 mg tablet,delayed release 40 mg PO DAILY 03/26/22 [History] potassium chloride 20 mEq tablet,extended release(part/cryst) 1 tab PO QDAY 03/26/22 [History] semaglutide 14 mg tablet (Rybelsus) 14 mg PO DAILY 03/26/22 [History] tramadol 50 mg tablet 1 tab PO TID PRN 03/26/22 [History] zinc 50 mg capsule 50 mg PO QDAY 03/26/22 [History] benzonatate 100 mg capsule 100 mg PO TID PRN Cough #30 caps 03/28/22 [Rx] doxycycline hyclate 100 mg capsule 100 mg PO BID 10 days #20 caps 03/28/22 [Rx] Prescriptions: DESIREE Ashraf [facility]ine [facility] Vital Signs: Temperature 98.8 F Pulse Rate [Right] 77 Pulse Rate 78 Respiratory Rate 20 Blood Pressure [Right Arm] 160/90 Blood Pressure [Left Arm] 189/87 Blood Pressure 195/86 O2 Sat by Pulse Oximetry 98 Latest Lab Results: Laboratory Last Values WBC 4.9 X10^3/uL (3.6-10.0) 03/28/22 05:22 RBC 3.84 X10^6/uL (3.5-5.4) 03/28/22 05:22 Hgb 11.5 g/dL (12.0-16.0) L 03/28/22 05:22 Hct 32.6 % (36.0-47.0) L 03/28/22 05:22 MCV 85.0 fL (80.0-100.0) 03/28/22 05:22 MCH 30.0 pg (27.0-34.0) 03/28/22 05:22 MCHC 35.3 g/dL (33.0-35.0) H 03/28/22 05:22 RDW 14.5 % (11.6-16.5) 03/28/22 05:22 Plt Count 192 X10^3/uL (150.0-450.0) 03/28/22 05:22 MPV 8.3 fL (7.4-11.0) 03/28/22 05:22 Neut % (Auto) 66.8 % (42.0-75.0) 03/28/22 05:22 Lymph % (Auto) 24.4 % (21.0-51.0) 03/28/22 05:22 [place] % (Auto) 7.7 % (0.0-13.0) 03/28/22 05:22 Eos % (Auto) 0.6 % (0.9-2.9) L 03/28/22 05:22 Baso % (Auto) 0.5 % (0.2-1.0) 03/28/22 05:22 Neut # (Auto) 3.3 x10^3/uL (2.2-4.8) 03/28/22 05:22 Lymph # (Auto) 1.2 X10^3/uL (1.3-2.9) L 03/28/22 05:22 [place] # (Auto) 0.4 x10^3/uL (0.3-0.8) 03/28/22 05:22 Eos # (Auto) 0.0 x10^3/uL (0.0-0.2) 03/28/22 05:22 Baso # (Auto) 0.0 X10^3/uL (0.0-0.1) 03/28/22 05:22 Absolute Nucleated RBC 0.1 /100WBC 03/28/22 05:22 D-Dimer 0.29 ug/ml (0.0-0.57) 03/25/22 21:45 Sodium 134 mmol/L (136-145) L 03/28/22 05:22 Corrected Sodium 137 mmol/L (136-145) 03/28/22 05:22 Potassium 4.3 mmol/L (3.5-5.1) 03/28/22 05:22 Chloride 101 mmol/L (98-107) 03/28/22 05:22 Carbon Dioxide 25.2 mmol/L (21-32) 03/28/22 05:22 BUN 9 mg/dL (7-18) 03/28/22 05:22 Creatinine 1.07 mg/dL (0.55-1.02) H 03/28/22 05:22 Est GFR (MDRD) Af Amer > 60 (>60) 03/28/22 05:22 Est GFR (MDRD) Non-Af 53 (>60) L 03/28/22 05:22 Glucose 215 mg/dL (65-99) H 03/28/22 05:22 POC Glucose (mg/dL) 206 mg/dL (65-99) H 03/28/22 05:40 Calcium 8.0 mg/dL (8.5-10.1) L 03/28/22 05:22 Corrected Calcium 8.6 mg/dL (8.5-10.1) 03/28/22 05:22 Magnesium 2.4 mg/dL (2.0-2.9) 03/27/22 05:21 Total Bilirubin 0.40 mg/dL (0.2-1.0) 03/28/22 05:22 AST 14 Units/L (15-37) L 03/28/22 05:22 ALT 18 Units/L (12-78) 03/28/22 05:22 Alkaline Phosphatase 81 Units/L (46-116) 03/28/22 05:22 Creatine Kinase 56 Units/L (26-192) 03/25/22 21:45 Troponin I High Sens 9.0 ng/L (4.0-60.0) 03/25/22 21:45 B-Natriuretic Peptide 15.9 pg/mL (0-79) 03/25/22 21:45 Total Protein 6.0 g/dL (6.4-8.2) L 03/28/22 05:22 Albumin 3.2 g/dL (3.4-5.0) L 03/28/22 05:22 Globulin 2.8 g/dL (2.5-4.5) 03/28/22 05:22 Albumin/Globulin Ratio 1.1 Ratio (1.1-2.1) 03/28/22 05:22 Hospital Course: PT IS 81WF, ER ADMISSION AFTER ARRIVING ED VIA [facility] WITH C/O N/V SINCE SUNDAY. PT TESTED POSITIVE FOR ON SUNDAY. WAS SEEN HERE IN ER ON SUNDAY. PT HAS PMH OF HTN, CHF, CAD, GERD, OA. By the following morning she was feeling somewhat better but still weak though. Sodium had improved as well as her hydration status. She continued to be weak from her illness and was kept for another day. This morning she is feeling better and reports that she struggled in the morning gets weak in afternoon. Sodium has normalized this morning and a corrected sodium is 137. Creatinine is 1.07. BUN is 9. She has a normal white blood cell count this morning. She will be discharged home in stable condition I will have her follow-up with me for hospital follow-up within 7 to 10 days. We will give her doxycycline 100 mg 1 p.o. twice daily for 10 days and Tessalon Perles 100 mg every 8 hours as needed cough #30 no refills.
[2022-03-28] MEDS: PROTONIX TAB 40 MG PO SCH (09:24)
[2022-03-28] MEDS: K-DUR TAB 20 MEQ PO SCH (09:24)
[2022-03-28] MEDS: LOVENOX INJ 40 MG SYR SC SCH (09:25)
[2022-03-28] MEDS: VITAMIN C PO SCH (09:25)
[2022-03-28] MEDS: ASPIRIN EC 81 MG PO SCH (09:25)
[2022-03-28] MEDS: SYNTHROID 50 mcg TAB PO SCH (09:25)
[2022-03-28] MEDS: ALDACTONE TAB 25 MG PO SCH (09:25)
[2022-03-28] MEDS: LASIX PO SCH (09:25)
[2022-03-28] MEDS: LEVAQUIN PREMIX IV 500 MG 500 MG/100 ML BAG IV SCH (09:26)
== END 2022-03-28 11:40 | disposition home or self-care (01) ==
LOC: ER 21:01 → MED/SURG 21:01
PROVIDERS: ADMIT Internal Medicine; ATTEND Family Medicine
DX: R06.02 Shortness of breath; R11.2 Nausea with vomiting, unspecified; I25.10 Atherosclerotic heart disease of native coronary artery without angina pectoris; R07.89 Other chest pain; I50.9 Heart failure, unspecified; E86.0 Dehydration; E87.1 Hypo-osmolality and hyponatremia; E11.65 Type 2 diabetes mellitus with hyperglycemia; K21.9 Gastro-esophageal reflux disease without esophagitis; Z66 Do not resuscitate; U07.1 COVID-19; I11.0 Hypertensive heart disease with heart failure; E78.2 Mixed hyperlipidemia; E03.8 Other specified hypothyroidism; K29.00 Acute gastritis without bleeding; R53.1 Weakness

== ENCOUNTER 2024-11-27 10:08 | Observation (INO) ==
[2024-11-27 10:41] VITALS: BMI 34.9
--- NOTE | 2024-11-27 11:04 | DR.DIZZY ---
HPI Time seen Time Seen by Provider: 11/27/24 10:59 PCP Primary Care Physician: Ernestina Complaint Chief Complaint Doctor Comments: 84 yo F, hx of CAD, CKD, BIBA from home for confusion and weakness. Daughter states she has had increased confusion and weakness today, stating she couldn't walk, and that she had recently been in the hospital. Daughter states she has been able to walk this am, and hasn't been in the hospital recently. Denies other complaints at this time. Denies fever, abd pain, cough, chest pain, dyspnea, back pain. Chief Complaint:: EMS was called out to the patient due to her stating that she was recently in the hospital due to being sick. She states that she has has been feeling weak since leaving the hospital, and threw up one time Sunday. The patient also states that she is unable to walk today due to feeling so weak. The patient's daughter told EMS that the patient has not been in the hospital recently and that she has been walking all through the house like normal since this morning. The daughter states that she is unsure what complaint the patient has, but states that she did not take any of her morning medications today. COVID-19 Coronavirus risk:travel/contact w/high risk person: No Has patient experienced Coronavirus symptoms: No Source History Provided: Patient and EMS Mode of Arrival Mode of Arrival: Stretcher Timing Onset of Chief Complaint: 11/17/24 Context Stroke Symptoms: Acute confusion PMH PMH Past Medical History: Yes Past Medical History: Anemia, Arthritis, CHF, Coronary Artery Disease, Depression, Diabetes, Dyslipidemia, Hypertension, Hypothyroidism, DC, Renal Disease and Sleep Apnea Past Surgical History: Yes Surgical History: Angioplasty/Stents, Appendectomy, Cholecystectomy and Hysterectomy Family History History of Family Medical Conditions: Yes Family Medical History: Diabetes Mellitus, Cancer, Coronary Artery Disease and Hypertension Social History Does patient currently use any type of tobacco product: No Have you used tobacco products in the last 12 months: No Type of Tobacco Use: None Does any household member use tobacco: No Alcohol Use: None Do you use any recreational Drugs:: No Lives With: Family Lives Where: Home Travel Risk Coronavirus risk:travel/contact w/high risk person: No Has patient experienced Coronavirus symptoms: No Infectious screening In the last 2 months have you had wt loss of >10#?: NO Have you had fever, night sweats or hemotysis?: No Have you traveled outside the country in the last 6 months?: No Isolation: Standard ROS Review of Systems Constitutional: Other (confusion, weakness) All Other Systems: Reviewed and Negative PE Vital Signs Vitals: Vital Signs Temperature 98.5 F Pulse Rate 84 Pulse Rate 86 Pulse Rate 89 Pulse Rate 93 Pulse Rate 87 Pulse Rate 86 Pulse Rate 85 Pulse Rate 84 Pulse Rate 83 Pulse Rate 87 Pulse Rate 86 Pulse Rate 84 Pulse Rate 83 Pulse Rate 83 Pulse Rate 84 Pulse Rate 85 Pulse Rate 83 Pulse Rate 85 Pulse Rate 89 Pulse Rate 86 Respiratory Rate 15 Respiratory Rate 15 Respiratory Rate 17 Respiratory Rate 25 Respiratory Rate 15 Respiratory Rate 16 Respiratory Rate 14 Respiratory Rate 14 Respiratory Rate 15 Respiratory Rate 14 Respiratory Rate 11 Respiratory Rate 11 Respiratory Rate 16 Respiratory Rate 11 Respiratory Rate 18 Respiratory Rate 18 Respiratory Rate 20 Blood Pressure 182/87 Blood Pressure 186/87 Blood Pressure 202/96 Blood Pressure 197/89 Blood Pressure 193/88 Blood Pressure 210/95 Blood Pressure 215/91 Blood Pressure 230/105 Blood Pressure 242/112 Blood Pressure 220/96 Blood Pressure 229/100 Blood Pressure 229/100 Blood Pressure 218/100 O2 Sat by Pulse Oximetry 96 O2 Sat by Pulse Oximetry 98 O2 Sat by Pulse Oximetry 97 O2 Sat by Pulse Oximetry 98 O2 Sat by Pulse Oximetry 97 O2 Sat by Pulse Oximetry 97 O2 Sat by Pulse Oximetry 97 O2 Sat by Pulse Oximetry 97 O2 Sat by Pulse Oximetry 96 O2 Sat by Pulse Oximetry 95 O2 Sat by Pulse Oximetry 97 O2 Sat by Pulse Oximetry 97 O2 Sat by Pulse Oximetry 96 O2 Sat by Pulse Oximetry 95 O2 Sat by Pulse Oximetry 94 O2 Sat by Pulse Oximetry 96 O2 Sat by Pulse Oximetry 98 O2 Sat by Pulse Oximetry 94 O2 Sat by Pulse Oximetry 92 O2 Sat by Pulse Oximetry 93 General Limitations: No Limitations General Appearance: Alert and In No Apparent Distress Head Head Exam: Normal Inspection Eyes Eye exam: Normal Appearance ENT ENT Exam: Normal Exam, Normal Oropharynx and Normal External Ear Exam Neck Neck Exam: Normal Inspection and Full ROM Chest Chest Inspection: Normal Inspection Respiratory Respiratory Exam: Normal Lung Sounds Bilat Cardiovascular Cardiovascular Exam: Regular Rate and Normal Rhythm Abdominal Exam Abdominal Exam: Normal Inspection, Normal Bowel Sounds and Soft Rectal Rectal Exam: Deferred Extremeties Extremities Exam: Normal Inspection and Full ROM Back Back Exam: Normal Inspection and Full ROM Neurologic Neurological Exam: Alert and Other (mild confusion, answering questions appropriately otherwise.) Psychiatric Psychiatric Exam: Normal Affect and Normal Mood Skin Skin Exam: Warm, Dry, Intact and Normal Color ROR Labs Reviewed 11/27/24 11:08 11/27/24 11:08 Laboratory: WBC 8.9 X10^3/uL (3.6-10.0) 11/27/24 11:08 RBC 4.05 X10^6/uL (3.5-5.4) 11/27/24 11:08 Hgb 12.4 g/dL (12.0-16.0) 11/27/24 11:08 Hct 36.0 % (36.0-47.0) 11/27/24 11:08 MCV 89.0 fL (80.0-100.0) 11/27/24 11:08 MCH 30.6 pg (27.0-34.0) 11/27/24 11:08 MCHC 34.3 g/dL (33.0-35.0) 11/27/24 11:08 RDW 14.4 % (11.6-16.5) 11/27/24 11:08 Plt Count 189 X10^3/uL (150.0-450.0) 11/27/24 11:08 MPV 8.1 fL (7.4-11.0) 11/27/24 11:08 Neut % (Auto) 81.0 % (42.0-75.0) H 11/27/24 11:08 Lymph % (Auto) 11.8 % (21.0-51.0) L 11/27/24 11:08 [place] % (Auto) 5.2 % (0.0-13.0) 11/27/24 11:08 Eos % (Auto) 1.6 % (0.9-2.9) 11/27/24 11:08 Baso % (Auto) 0.4 % (0.2-1.0) 11/27/24 11:08 Neut # (Auto) 7.2 x10^3/uL (2.2-4.8) H 11/27/24 11:08 Lymph # (Auto) 1.0 X10^3/uL (1.3-2.9) L 11/27/24 11:08 [place] # (Auto) 0.5 x10^3/uL (0.3-0.8) 11/27/24 11:08 Eos # (Auto) 0.1 x10^3/uL (0.0-0.2) 11/27/24 11:08 Baso # (Auto) 0.0 X10^3/uL (0.0-0.1) 11/27/24 11:08 Absolute Nucleated RBC 0.1 /100WBC 11/27/24 11:08 Sodium 135 mmol/L (136-145) L 11/27/24 11:08 Corrected Sodium 138 mmol/L (136-145) 11/27/24 11:08 Potassium 4.4 mmol/L (3.5-5.1) 11/27/24 11:08 Chloride 97 mmol/L (98-107) L 11/27/24 11:08 Carbon Dioxide 32.0 mmol/L (21-32) 11/27/24 11:08 BUN 26 mg/dL (7-18) H 11/27/24 11:08 Creatinine 1.45 mg/dL (0.55-1.02) H 11/27/24 11:08 Est GFR (MDRD) Af Amer 44 (>60) L 11/27/24 11:08 Est GFR (MDRD) Non-Af 37 (>60) L 11/27/24 11:08 Glucose 221 mg/dL (65-99) H 11/27/24 11:08 Lactic Acid 0.6 mmol/L (0.4-2.0) 11/27/24 11:08 Calcium 8.6 mg/dL (8.5-10.1) 11/27/24 11:08 Corrected Calcium TNP 11/27/24 11:08 Magnesium 2.4 mg/dL (2.0-2.9) 11/27/24 11:08 Total Bilirubin 0.40 mg/dL (0.2-1.0) 11/27/24 11:08 AST 19 Units/L (15-37) 11/27/24 11:08 ALT 27 Units/L (12-78) 11/27/24 11:08 Alkaline Phosphatase 118 Units/L (46-116) H 11/27/24 11:08 Creatine Kinase 58 Units/L (26-192) 11/27/24 11:08 Troponin I High Sens 16.2 ng/L (4.0-60.0) 11/27/24 11:08 Total Protein 7.4 g/dL (6.4-8.2) 11/27/24 11:08 Albumin 3.7 g/dL (3.4-5.0) 11/27/24 11:08 Globulin 3.7 g/dL (2.5-4.5) 11/27/24 11:08 Albumin/Globulin Ratio 1.0 Ratio (1.1-2.1) L 11/27/24 11:08 Specimen Type Clean catch urine 11/27/24 11:05 Urine Color Pale yellow (YELLOW) 11/27/24 11:05 Urine Appearance Clear (CLEAR) 11/27/24 11:05 Urine pH 7.0 (5.0 - 8.0) 11/27/24 11:05 Ur Specific [place] 1.010 (1.000-1.030) 11/27/24 11:05 Urine Protein Negative (NEGATIVE) 11/27/24 11:05 Urine Glucose (UA) 4+ (NEGATIVE) 11/27/24 11:05 Urine Ketones Negative (NEGATIVE) 11/27/24 11:05 Urine Blood Negative (NEGATIVE) 11/27/24 11:05 Urine Nitrite Negative (NEGATIVE) 11/27/24 11:05 Urine Bilirubin Negative (NEGATIVE) 11/27/24 11:05 Urine Urobilinogen Normal (NORMAL) 11/27/24 11:05 Ur Leukocyte Esterase Negative (NEGATIVE) 11/27/24 11:05 Opioid Opioid Risk Tool Age (Good box if 16-45): No History of Preadolescent Sexual Abuse: No Total: 0 Total Score Risk Category: Low Risk Copyright: Bakari DUNLAP predicting aberrant behaviors Discharge Plan Diagnosis Discharge Problem: Confusion Hypertension Qualifiers: Hypertension type: unspecified Qualified Code(s): I10 - Essential (primary) hypertension Discharge Plan Patient Disposition: ADMITTED INPATIENT Condition: Stable Prescriptions: No Action isosorbide dinitrate 10 mg tablet 10 mg PO BID Qty: 180 3RF insulin lispro 100 unit/mL insulin pen 1 sliding scale dose subcut USEASDIRECTD MDD 48 units Qty: 15 12RF Rx Instructions: Inject 2 to 12 units subcutaneous injections 4 times a day per insulin sliding scale. Refrigerate medication and discard 28 days after opening. hydralazine 25 mg tablet 25 mg PO Q6H PRN (Reason: for blood pressure) Qty: 360 0RF Rybelsus 14 mg tablet 14 mg PO QDAY Qty: 30 2RF carvedilol 12.5 mg tablet 12.5 mg PO BID Qty: 180 0RF valsartan 80 mg tablet 80 mg PO QDAY Qty: 90 3RF (DME) Dexcom G6 Sensor Device See Rx Instructions .Route Qty: 3 3RF Rx Instructions: As directed (DME) Dexcom G6 Transmitter Device See Rx Instructions .Route Qty: 1 0RF Rx Instructions: As directed (DME) Dexcom G6 Circuit Board Repair Technician Misc See Rx Instructions .Route Qty: 1 0RF Rx Instructions: As directed tramadol 50 mg tablet 50 mg PO TID MDD 3 PRN (Reason: pain) 30 Days Qty: 90 0RF primidone 50 mg tablet 50 mg PO QPM Qty: 30 3RF levothyroxine 50 mcg tablet 50 mcg PO QAM Qty: 90 3RF furosemide 40 mg tablet 40 mg PO QAM Qty: 30 2RF ferrous gluconate 324 mg (38 mg iron) tablet 324 mg PO QDAY Qty: 90 0RF Jardiance 25 mg tablet 25 mg PO QAM Qty: 30 6RF docusate sodium 100 mg capsule 100 mg PO QDAY PRN (Reason: constipation) Qty: 90 3RF Toujeo Max U-300 SoloStar 300 unit/mL (3 mL) insulin pen 60 unit subcut QDAY 30 Days Qty: 6 3RF Linzess 72 mcg capsule 72 mcg PO QAM 30 Days Qty: 30 0RF atorvastatin 80 mg tablet 80 mg PO QPM Qty: 90 3RF baclofen 10 mg tablet 5 mg PO TID PRN (Reason: for muscle spasm) Qty: 45 3RF aspirin 81 mg Tablet,Delayed Release (Dr/Ec) 81 mg PO QDAY ascorbic acid (vitamin C) [Vitamin C] 500 mg Tablet 500 mg PO QDAY Rybelsus 14 mg tablet 14 mg PO QAM Health Concerns: Post Hospitalization: new medications and changes needed to prevent readmission or further decline. Pt educated and given instructions on all concerns. Plan of Treatment: Continue with present treatment and follow up plan. Pt is to keep follow up appointment as instructed and take medications as ordered. Orders to Discharge Patient Discharge Orders: Transfer (Routine); Ordered 11/27/24 Ordered By: Maurizio Golden Follow ups/Referrals Follow ups/Referrals: ,Misc [Primary Care Provider] - 3 days Instructions Stand Alone Forms: Find Help Web Site, Post Hospital Follow Up Care Print Language: PORTUGUESE Provider Note Additional Notes Pt accepted by Dr Do
[2024-11-27 11:11] LABS: BLOOD/HEMOGLOBIN,URINE NEGATIVE (NEGATIVE); LEUKOCYTE ESTERASE ,URINE NEGATIVE (NEGATIVE); NITRITES,URINE NEGATIVE (NEGATIVE)
[2024-11-27 11:12] LABS: APPEARANCE,URINE CLEAR (CLEAR)
--- NOTE | 2024-11-27 11:39 | EKG ---
Test Reason : Weakness Blood Pressure : */* mmHG Vent. Rate : 85 BPM Atrial Rate : 85 BPM P-R Int : 206 ms QRS Dur : 90 ms QT Int : 382 ms P-R-T Axes : 58 -32 55 degrees QTc Int : 454 ms Normal sinus rhythm Left axis deviation Septal infarct (cited on or before 08-JUN-2024) Abnormal ECG When compared with ECG of 03-OCT-2024 13:55, Borderline criteria for Lateral infarct are no longer present Confirmed by Darien Dorsey MD ([id number]) on 11/27/2024 4:04:23 PM Referred By: Confirmed By: Darien Drosey MD
[2024-11-27 11:47] LABS: MEAN PLATELET VOLUME 8.1 fL (7.4-11.0); RED CELL DISTRIBUTION WIDTH 14.4 % (11.6-16.5)
[2024-11-27 11:58] LABS: COR NA(FOR HYPERGLY) 138 mmol/L (136-145); CREATININE 1.45 mg/dL (0.55-1.02); eGFR NON BLACK RACES 37 (>60)
[2024-11-27] MEDS ORDERED: APRESOLINE INJ 20 MG VIAL ONE (11:59)
[2024-11-27] MEDS: APRESOLINE INJ 20 MG VIAL IVP ONE (12:02)
--- NOTE | 2024-11-27 12:15 | CT ---
EXAMINATION: BRAIN W/O CON HISTORY: GENERAL WEAKNESS, SOB; . COMPARISON STUDY: CT brain 10/19/2023 TECHNIQUE: Images were obtained in brain and bone windows. The above CT scan was done with automated exposure control and the mA and kV was adjusted to obtain quality images according to patient size. FINDINGS: There is no acute intracranial hemorrhage, midline shift or edema present. There is atrophy and deep white matter ischemic change due to small vessel disease. Garcia-white matter differentiation is maintained throughout. There are no intra-axial or extra-axial collections noted. There is motion artifact. Stable meningioma along the right parietal high convexity.. The sinuses are clear. The mastoid air cells are clear. There is no radiographic evidence of depressed skull fracture. Vascular calcification about the skull base.. IMPRESSION: No acute intracranial process. Atrophy and deep white matter ischemic change due to small vessel disease. No change compared with previous. If symptoms persist consider MRI. THIS IS AN ELECTRONICALLY VERIFIED FINAL REPORT 11/27/2024 12:12 PM - Electronically signed by Devaughn Sauceda MD
--- NOTE | 2024-11-27 12:18 | RAD ---
EXAM: CHEST, 1 VIEW HISTORY: sob, general weakness; COMPARISON: 10/03/2024 TECHNIQUE: AP FINDINGS: Stable cardiac silhouette. Low lung volumes. No focal consolidation. No large pleural effusion or visible pneumothorax. IMPRESSION: No acute cardiopulmonary findings. THIS IS AN ELECTRONICALLY VERIFIED FINAL REPORT 11/27/2024 12:15 PM - Electronically signed by Neal Acosta MD
[2024-11-27] MEDS: DIOVAN TAB 80 MG PO SCH (13:14)
[2024-11-27] MEDS: COREG TAB 12.5 MG PO SCH (13:14)
[2024-11-27] MEDS ORDERED: CONSULT PHARMACY - POTASSIUM & MAGNESIUM XX SCH (14:49)
[2024-11-27] MEDS ORDERED: ULTRAM PO PRN ×2 (14:49)
[2024-11-27] MEDS ORDERED: COLACE CAP 100 MG PO PRN (14:49)
[2024-11-27] MEDS ORDERED: PATIENT'S HOME MEDICATION (Insulin Lispro 100 unit/mL insulin pen) subcut SCH (14:49)
[2024-11-27] MEDS ORDERED: ZOFRAN TAB 4 MG PO PRN (14:49)
[2024-11-27] MEDS ORDERED: ZOFRAN INJ 4 MG VIAL IVP PRN (14:49)
[2024-11-27] MEDS ORDERED: LIORESAL PO PRN (14:49)
[2024-11-27] MEDS: NS 1,000 ML IV 1,000 ML IV SCH (15:52)
[2024-11-27] MEDS: SNACK - Diabetic Appropriate PO SCH (19:24)
[2024-11-27] MEDS: TYLENOL 325 MG TAB PO PRN (19:43)
[2024-11-27] MEDS: MYSOLINE PO SCH (20:35)
[2024-11-27] MEDS: LIPITOR TAB 80 MG PO SCH (20:35)
[2024-11-27] MEDS: APRESOLINE TAB 25 MG PO PRN (20:35)
[2024-11-27] MEDS: ISOSORBIDE DINITRATE PO SCH (20:36)
[2024-11-27] MEDS: NovoLIN R (or HumuLIN R) SUBCUT PRN (20:38)
[2024-11-28 00:04] VITALS: O2SAT 95
[2024-11-28 05:30] LABS: MEAN PLATELET VOLUME 8.0 fL (7.4-11.0); RED CELL DISTRIBUTION WIDTH 14.5 % (11.6-16.5)
[2024-11-28 05:41] LABS: COR CA(FOR HYPOALB) 8.9 mg/dL (8.5-10.1); COR NA(FOR HYPERGLY) 138.0 mmol/L (136-145); CREATININE 1.38 mg/dL (0.55-1.02); eGFR NON BLACK RACES 39.0 (>60)
[2024-11-28] MEDS ORDERED: SEMAGLUTIDE 14 MG PO SCH (09:00)
[2024-11-28] MEDS ORDERED: INSULIN GLARGINE U subcut SCH (09:00)
[2024-11-28] MEDS: LASIX PO SCH (09:16)
[2024-11-28] MEDS: FARXIGA PO SCH (09:16)
[2024-11-28] MEDS: LANTUS SC SCH (09:18)
[2024-11-28] MEDS: SEMAGLUTIDE 14 MG PO SCH (09:24)
[2024-11-28] MEDS: FERROUS GLUCONATE PO SCH (09:45)
[2024-11-28] MEDS: VITAMIN C PO SCH (09:45)
[2024-11-28] MEDS: DIOVAN TAB 80 MG PO SCH (09:45)
[2024-11-28] MEDS: ASPIRIN EC 81 MG PO SCH (09:45)
[2024-11-28 10:42] VITALS: BP 134/75; PULSE 82; RESP 19; TEMP 97.7
--- NOTE | 2024-11-28 19:01 | DR.SSS ---
SHORT STAY SUMMARY Admission Date Date of Admission: 11/27/24 Discharge Date Discharge Date: 11/28/24 Admission Diagnoses Admission Diagnoses: Altered mental status Discharge Diagnoses Discharge Diagnoses: Altered mental status Hypertension urgency Chief Complaint Chief Complaint: Confusion History of Present Illness History of Present Illness: Patient is a 84-year-old female presenting with confusion that occurred early in the morning. Patient's daughter noted that patient seemed to be more weak and having some confusion. Patient stated that she just did not feel well at that time. Labs/imaging: WBC 6.4, hemoglobin 10.8 , platelets 178, sodium 137, potassium 4.1, creatinine 1.38, glucose 123, UA negative, COVID-negative, CT was obtained of the brain that revealed no acute intracranial process. Atrophy and deep white matter ischemic change due to small vessel disease. Chest x-ray negative for acute cardiopulmonary findings. Patient was noted in the ED to be significantly hypertensive. She was given IV hydralazine as well as other medications to help control blood pressure. Patient was observed overnight for altered mental status. She did well overnight and her confusion resolved. On exam in the morning patient was back to baseline. She does reported that during her initial episode she just felt not right and weak. Her blood pressure has remained in good range. There are no other concerning lab findings. Symptoms possibly related to hypertensive urgency along with small vessel disease seen in the brain. Otherwise patient has remained stable. She was discharged in stable condition. Instructed follow-up with her PCP in 1 week. Past Medical History Past Medical History: Anemia, Arthritis, CHF, Coronary Artery Disease, Depression, Diabetes, Dyslipidemia, Hypertension, Hypothyroidism, AR, Renal Disease and Sleep Apnea Past Surgical History Surgical History: Angioplasty/Stents, Appendectomy, Cholecystectomy and Other Allergies Allergies Allergy/AdvReac Type Severity Reaction Status Date / Time Penicillins Allergy Verified 11/27/24 12:42 Sulfa (Sulfonamide Allergy Verified 11/27/24 12:42 Antibiotics) (SULFA) Medications Home Medications: Penicillins Allergy (Verified 11/27/24 12:42) Sulfa (Sulfonamide Antibiotics) (SULFA) Allergy (Verified 11/27/24 12:42) Family History Family Medical History: Coronary Artery Disease and Hypertension Social History Does patient currently use any type of tobacco product: No Have you used tobacco products in the last 12 months: No Type of Tobacco Use: None Does any household member use tobacco: No Alcohol Use: None Review of Systems Constitutional: Weakness Eyes: No Symptoms Reported ENT: No Symptoms Reported Respiratory: No Symptoms Reported Cardiovascular: No Symptoms Reported Gastrointestinal: No Symptoms Reported Genitourinary: No Symptoms Reported Musculoskeletal: No Symptoms Reported Skin: No Symptoms Reported Neurological: Confusion Physical Exam Vital Signs: Last Vital Signs Temp 98.0 F 11/28/24 04:00 Pulse 76 11/28/24 04:00 Resp 16 11/28/24 04:00 BP 121/60 11/28/24 04:00 Pulse Ox 95 11/28/24 04:00 O2 Del Method Room Air 11/28/24 00:00 FiO2 96 03/06/21 19:00 Oriented: Normal Eyes: Normal Ear: Normal Nose: Normal Respiratory: Clear Throughout Cardiovascular: Normal : Normal Auscultation: Bowel Sounds: Normal Palpation: Normal Tenderness: Normal Skin: Normal Musculoskeletal: Normal Psychiatric: Normal Speech Pattern: Clear Labs Labs: Laboratory Last Values WBC 6.4 X10^3/uL (3.6-10.0) 11/28/24 05:12 RBC 3.53 X10^6/uL (3.5-5.4) 11/28/24 05:12 Hgb 10.8 g/dL (12.0-16.0) L 11/28/24 05:12 Hct 31.3 % (36.0-47.0) L 11/28/24 05:12 MCV 88.6 fL (80.0-100.0) 11/28/24 05:12 MCH 30.5 pg (27.0-34.0) 11/28/24 05:12 MCHC 34.5 g/dL (33.0-35.0) 11/28/24 05:12 RDW 14.5 % (11.6-16.5) 11/28/24 05:12 Plt Count 178 X10^3/uL (150.0-450.0) 11/28/24 05:12 MPV 8.0 fL (7.4-11.0) 11/28/24 05:12 Neut % (Auto) 64.3 % (42.0-75.0) 11/28/24 05:12 Lymph % (Auto) 24.6 % (21.0-51.0) 11/28/24 05:12 [place] % (Auto) 7.5 % (0.0-13.0) 11/28/24 05:12 Eos % (Auto) 2.7 % (0.9-2.9) 11/28/24 05:12 Baso % (Auto) 0.9 % (0.2-1.0) 11/28/24 05:12 Neut # (Auto) 4.1 x10^3/uL (2.2-4.8) 11/28/24 05:12 Lymph # (Auto) 1.6 X10^3/uL (1.3-2.9) 11/28/24 05:12 [place] # (Auto) 0.5 x10^3/uL (0.3-0.8) 11/28/24 05:12 Eos # (Auto) 0.2 x10^3/uL (0.0-0.2) 11/28/24 05:12 Baso # (Auto) 0.1 X10^3/uL (0.0-0.1) 11/28/24 05:12 Absolute Nucleated RBC 0.1 /100WBC 11/28/24 05:12 Sodium 137 mmol/L (136-145) 11/28/24 05:12 Corrected Sodium 138 mmol/L (136-145) 11/28/24 05:12 Potassium 4.1 mmol/L (3.5-5.1) 11/28/24 05:12 Chloride 102 mmol/L (98-107) 11/28/24 05:12 Carbon Dioxide 28.9 mmol/L (21-32) 11/28/24 05:12 BUN 27 mg/dL (7-18) H 11/28/24 05:12 Creatinine 1.38 mg/dL (0.55-1.02) H 11/28/24 05:12 Est GFR (MDRD) Af Amer 47 (>60) L 11/28/24 05:12 Est GFR (MDRD) Non-Af 39 (>60) L 11/28/24 05:12 Glucose 123 mg/dL (65-99) H 11/28/24 05:12 POC Glucose (mg/dL) 125 mg/dL (65-99) H 11/28/24 05:27 Lactic Acid 0.6 mmol/L (0.4-2.0) 11/27/24 11:08 Calcium 8.0 mg/dL (8.5-10.1) L 11/28/24 05:12 Corrected Calcium 8.9 mg/dL (8.5-10.1) 11/28/24 05:12 Magnesium 2.4 mg/dL (2.0-2.9) 11/27/24 11:08 Total Bilirubin 0.30 mg/dL (0.2-1.0) 11/28/24 05:12 AST 13 Units/L (15-37) L 11/28/24 05:12 ALT 17 Units/L (12-78) 11/28/24 05:12 Alkaline Phosphatase 90 Units/L (46-116) 11/28/24 05:12 Creatine Kinase 58 Units/L (26-192) 11/27/24 11:08 Troponin I High Sens 16.2 ng/L (4.0-60.0) 11/27/24 11:08 Total Protein 6.0 g/dL (6.4-8.2) L 11/28/24 05:12 Albumin 2.9 g/dL (3.4-5.0) L 11/28/24 05:12 Globulin 3.1 g/dL (2.5-4.5) 11/28/24 05:12 Albumin/Globulin Ratio 0.9 Ratio (1.1-2.1) L 11/28/24 05:12 Specimen Type Clean catch urine 11/27/24 11:05 Urine Color Pale yellow (YELLOW) 11/27/24 11:05 Urine Appearance Clear (CLEAR) 11/27/24 11:05 Urine pH 7.0 (5.0 - 8.0) 11/27/24 11:05 Ur Specific [place] 1.010 (1.000-1.030) 11/27/24 11:05 Urine Protein Negative (NEGATIVE) 11/27/24 11:05 Urine Glucose (UA) 4+ (NEGATIVE) 11/27/24 11:05 Urine Ketones Negative (NEGATIVE) 11/27/24 11:05 Urine Blood Negative (NEGATIVE) 11/27/24 11:05 Urine Nitrite Negative (NEGATIVE) 11/27/24 11:05 Urine Bilirubin Negative (NEGATIVE) 11/27/24 11:05 Urine Urobilinogen Normal (NORMAL) 11/27/24 11:05 Ur Leukocyte Esterase Negative (NEGATIVE) 11/27/24 11:05 Assessment/Plan (1) Altered mental status: (2) Hypertension: Hospital Course Hospital Course: Patient is a 84-year-old female presenting with confusion that occurred early in the morning. Patient's daughter noted that patient seemed to be more weak and having some confusion. Patient stated that she just did not feel well at that time. Labs/imaging: WBC 6.4, hemoglobin 10.8, platelets 178, sodium 137, potassium 4.1, creatinine 1.38, glucose 123, UA negative, COVID-negative, CT was obtained of the brain that revealed no acute intracranial process. Atrophy and deep white matter ischemic change due to small vessel disease. Chest x-ray negative for acute cardiopulmonary findings. Patient was noted in the ED to be significantly hypertensive. She was given IV hydralazine as well as other medications to help control blood pressure. Patient was observed overnight for altered mental status. She did well overnight and her confusion resolved. On exam in the morning patient was back to baseline. She does reported that during her initial episode she just felt not right and weak. Her blood pressure has remained in good range. There are no other concerning lab findings. Symptoms p ossibly related to hypertensive urgency along with small vessel disease seen in the brain. She was advised to use caution when taking baclofen. Instructed to also take her blood pressure medications which she did not that morning that she was sent to the ER. Otherwise patient has remained stable. She was discharged in stable condition. Home health ordered. Instructed follow-up with her PCP in 1 week. Discharge Medications Discharge Medications: Prescriptions: Discharge Plan Discharge Plan Patient Disposition: HOME HEALTH SERVICE Condition: Stable Health Concerns: Post Hospitalization: new medications and changes needed to prevent readmission or further decline. Pt educated and given instructions on all concerns. Care Plan Goals: Problem: Alteration in Mental Status Goal: Patient will stay oriented to their cognitive ability Instructions: Follow provided instructions. Follow up with primary physician as directed. Contact primary care physician or report to the closest Emergency Room if condition worsens. Plan of Treatment: Continue with present treatment and follow up plan. Pt is to keep follow up appointment as instructed and take medications as ordered. Assessment: No distress noted. Prescriptions: Continued isosorbide dinitrate 10 mg tablet 10 mg PO BID Qty: 180 3RF insulin lispro 100 unit/mL insulin pen 1 sliding scale dose subcut USEASDIRECTD MDD 48 units Qty: 15 12RF Rx Instructions: Inject 2 to 12 units subcutaneous injections 4 times a day per insulin sliding scale. Refrigerate medication and discard 28 days after opening. hydralazine 25 mg tablet 25 mg PO Q6H PRN (Reason: for blood pressure) Qty: 360 0RF Rybelsus 14 mg tablet 14 mg PO QDAY Qty: 30 2RF carvedilol 12.5 mg tablet 12.5 mg PO BID Qty: 180 0RF valsartan 80 mg tablet 80 mg PO QDAY Qty: 90 3RF (DME) Dexcom G6 Sensor Device See Rx Instructions .Route Qty: 3 3RF Rx Instructions: As directed (DME) Dexcom G6 Transmitter Device See Rx Instructions .Route Qty: 1 0RF Rx Instructions: As directed (DME) Dexcom G6 Safety Sitter Misc See Rx Instructions .Route Qty: 1 0RF Rx Instructions: As directed tramadol 50 mg tablet 50 mg PO TID MDD 3 PRN (Reason: pain) 30 Days Qty: 90 0RF primidone 50 mg tablet 50 mg PO QPM Qty: 30 3RF levothyroxine 50 mcg tablet 50 mcg PO QAM Qty: 90 3RF furosemide 40 mg tablet 40 mg PO QAM Qty: 30 2RF ferrous gluconate 324 mg (38 mg iron) tablet 324 mg PO QDAY Qty: 90 0RF Jardiance 25 mg tablet 25 mg PO QAM Qty: 30 6RF docusate sodium 100 mg capsule 100 mg PO QDAY PRN (Reason: constipation) Qty: 90 3RF Toujeo Max U-300 SoloStar 300 unit/mL (3 mL) insulin pen 60 unit subcut QDAY 30 Days Qty: 6 3RF Linzess 72 mcg capsule 72 mcg PO QAM 30 Days Qty: 30 0RF atorvastatin 80 mg tablet 80 mg PO QPM Qty: 90 3RF baclofen 10 mg tablet 5 mg PO TID PRN (Reason: for muscle spasm) Qty: 45 3RF aspirin 81 mg Tablet,Delayed Release (Dr/Ec) 81 mg PO QDAY ascorbic acid (vitamin C) [Vitamin C] 500 mg Tablet 500 mg PO QDAY Rybelsus 14 mg tablet 14 mg PO QAM Follow ups/Referrals Follow ups/Referrals: [facility] [STAFF PHYSICIAN, Unknown] Referral Note: Referral made at discharge. Godfrey Do MD [STAFF PHYSICIAN, MEDICAL] - 12/09/24 1:40 pm Instructions Instructions: Confusion, Hypertension, Adult, [id number], Weakness Stand Alone Forms: Find Help Web Site, [facility] Up Care Print Language: [id number]
== END 2024-11-28 11:30 | disposition home health service (06) ==
LOC: MED/SURG 10:08 → ER 10:08 → MED/SURG 14:30
PROVIDERS: ADMIT Family Medicine; ATTEND Family Medicine
DX: I16.0 Hypertensive urgency; I12.9 Hypertensive chronic kidney disease with stage 1 through stage 4 chronic kidney disease, or unspecified chronic kidney disease; N18.9 Chronic kidney disease, unspecified; I25.10 Atherosclerotic heart disease of native coronary artery without angina pectoris; Z74.1 Need for assistance with personal care; I25.2 Old myocardial infarction; E11.65 Type 2 diabetes mellitus with hyperglycemia; R41.82 Altered mental status, unspecified; I67.89 Other cerebrovascular disease; R94.31 Abnormal electrocardiogram [ECG] [EKG]; R26.89 Other abnormalities of gait and mobility; R06.02 Shortness of breath; E87.1 Hypo-osmolality and hyponatremia; E03.8 Other specified hypothyroidism; Z79.4 Long term (current) use of insulin; R53.1 Weakness; E78.5 Hyperlipidemia, unspecified